=== PATIENT | female | born 1975 | race Caucasian/White ===

== ENCOUNTER 2016-06-12 15:07 | Emergency (ER) | payer OTHER ==
[2016-06-12] MEDS ORDERED: SODIUM CHLORIDE 0.9% 1,000 ML IV ONE ×2 (15:52→16:58)
[2016-06-12] MEDS ORDERED: ONDANSETRON 4 MG/2 ML VIAL IVP STA (15:52)
--- NOTE | 2016-06-12 15:56 | ED ---
General Adult HPI - General Chief complaint: Chest Pain Stated complaint: SOB/Chest Pain Time Seen by Provider: 06/12/16 15:41 Source: patient, family, RN notes reviewed, old records reviewed Mode of arrival: ambulatory Limitations: no limitations - History of Present Illness Initial comments: 40-year-old female presenting for chest pain. Patient states this started somewhat suddenly while sitting at home. She states she felt a substernal sharp chest pain that also is in the left chest at times. She denies any shortness of breath associated. She did feel like she had some dizziness associated. She does states she's been feeling ill for the past week or so and is concerned she may be dehydrated. She also has had some nausea and vomiting last few days. She denies any abdominal pain. She denies any fevers or chills. - Related Data Home Medications Medication Instructions Recorded Confirmed Multivitamins, Thera [Multivitamin] 1 tab PO DAILY 06/12/16 06/12/16 traZODone HCL 50 - 100 mg PO HS 06/12/16 06/12/16 Allergies Allergy/AdvReac Type Severity Reaction Status Date / Time cephalexin monohydrate Allergy HIVES Verified 06/12/16 16:11 [From Keflex] erythromycin base Allergy HIVES Verified 06/12/16 16:11 [Erythromycin Base] metoclopramide HCl Allergy Unknown Verified 06/12/16 16:11 [From Reglan] Review of Systems ROS Statement: Those systems with pertinent positive or pertinent negative responses have been documented in the HPI. ROS Other: All systems not noted in ROS Statement are negative. Past Medical History Past Medical History: Asthma, Thyroid Disorder History of Any Multi-Drug Resistant Organisms: None Reported Past Surgical History: Adenoidectomy, Bariatric Surgery, Cholecystectomy, Tonsillectomy, Tubal Ligation Past Psychological History: Anxiety, Depression, Panic Disorder Smoking Status: Former smoker Past Alcohol Use History: None Reported Past Drug Use History: None Reported General Exam - General Exam Comments Initial Comments: General: Awake and Alert. No acute distress. Does not appear acutely ill. Eyes: RIOS, EOM intact. No nystagmus. No scleral icterus. HENT: Atraumatic, normocephalic. Mucous membranes moist. Trachea midline. Neck: The neck is supple, there is no tenderness or JVD. Cardiovascular: Regular rate and rhythm. No murmur, rub, or gallop is appreciated. Distal pulses intact. Respiratory: Lungs are clear to auscultation bilaterally. No wheezes, rales, rhonchi. No respiratory distress. Gastrointestinal: Soft, Nontender. No rebound or guarding. Non-distended. No masses or organomegaly noted. No CVA tenderness. Musculoskeletal: No tenderness. Normal ROM. No gross deformity. No strength deficits. Neurological: A&Ox3. CN II-XII grossly intact, There are no obvious motor or sensory deficits. Coordination appears grossly intact. Speech is normal. Skin: Skin is warm and dry and no rashes or lesions are noted. Psychiatric: Cooperative, normal judgment. Appears anxious. Limitations: no limitations Course Vital Signs 06/12/16 06/12/16 06/12/16 15:16 16:11 16:19 Temperature 98.6 F Pulse Rate 97 81 Pulse Rate [ 80 Bilateral] Respiratory 18 14 16 Rate Blood Pressure 124/59 101/63 O2 Sat by Pulse 100 100 Oximetry 06/12/16 06/12/16 06/12/16 17:30 19:42 20:32 Temperature 98.3 F 97.6 F Pulse Rate 69 80 78 Pulse Rate [ Bilateral] Respiratory 15 18 18 Rate Blood Pressure 89/55 97/52 118/72 O2 Sat by Pulse 100 20 L 98 Oximetry EKG Findings - EKG Comments: EKG Findings:: 15:36. Normal sinus rhythm. Rate 91. WI 134. QRS 76. QT/QTC 360/442. Normal axis. No STEMI. Normal EKG. Medical Decision Making - Medical Decision Making 40-year-old female presenting for chest pain. Patient with overall low risk factors for ACS. Patient appears stable on initial exam. Will start IV fluids for possible dehydration per history of recent illness and poor PO intake. Lab workup a stable CBC. Initial BMP with hypo-hyponatremia and hyperkalemia. Renal function appears normal.: Discussed with lab and states this is not hemolyzed. Patient is given additional liter of fluid. Repeat BMP was stable. Chest x-ray with no acute process. EKG without evidence of ischemia. Patient was reevaluated after fluid states she is feeling significantly improved. Updated on results and imaging. Discussed evidence of dehydration with electrolyte abnormalities but improved on repeat. Given the patient is feeling improved discussed that she is stable for discharge home at this time. Discussed staying well-hydrated. Discussed close follow-up with PCP. Discussed concerning signs and symptoms requiring immediate return to the ED. Patient and are agreeable with plan and discharge home. - Lab Data Result diagrams: 06/12/16 16:34 06/12/16 19:05 Lab Results 06/12/16 06/12/16 06/12/16 Range/Units 16:01 16:01 16:34 WBC (3.8-10.6) k/uL RBC (3.80-5.40) m/uL Hgb (11.4-16.0) gm/dL Hct (34.0-46.0) % MCV (80.0-100.0) fL MCH (25.0-35.0) pg MCHC (31.0-37.0) g/dL RDW (11.5-15.5) % Plt Count (150-450) k/uL Neutrophils % % Lymphocytes % % Monocytes % % Eosinophils % % Basophils % % Neutrophils # (1.3-7.7) k/uL Lymphocytes # (1.0-4.8) k/uL Monocytes # (0-1.0) k/uL Eosinophils # (0-0.7) k/uL Basophils # (0-0.2) k/uL Hypochromasia Anisocytosis Sodium 141 (137-145) mmol/L Potassium 5.6 H (3.5-5.1) mmol/L Chloride 111 H (98-107) mmol/L Carbon Dioxide 18 L (22-30) mmol/L Anion Gap 12 mmol/L BUN 12 (7-17) mg/dL Creatinine 0.63 (0.52-1.04) mg/dL Est GFR (MDRD) Af Amer >60 (>60 ml/min/1.73 sqM) Est GFR (MDRD) Non-Af >60 (>60 ml/min/1.73 sqM) Glucose 65 L (74-99) mg/dL Calcium 8.9 (8.4-10.2) mg/dL Magnesium 2.1 (1.6-2.3) mg/dL Total Bilirubin (0.2-1.3) mg/dL AST (14-36) U/L ALT (9-52) U/L Alkaline Phosphatase (38-126) U/L Total Protein (6.3-8.2) g/dL Albumin (3.5-5.0) g/dL Urine Color Colorless Urine Appearance Clear (Clear) Urine pH 5.5 (5.0-8.0) Ur Specific [place] 1.002 (1.001-1.035) Urine Protein Negative (Negative) Urine Glucose (UA) Negative (Negative) Urine Ketones Negative (Negative) Urine Blood Negative (Negative) Urine Nitrate Negative (Negative) Urine Bilirubin Negative (Negative) Urine Urobilinogen <2.0 (<2.0) mg/dL Ur Leukocyte Esterase Negative (Negative) Urine HCG, Qual Not Detected (Not Detectd) 06/12/16 06/12/16 Range/Units 16:34 19:05 WBC 4.3 (3.8-10.6) k/uL RBC 4.13 (3.80-5.40) m/uL Hgb 10.4 L (11.4-16.0) gm/dL Hct 34.4 (34.0-46.0) % MCV 83.3 (80.0-100.0) fL MCH 25.3 (25.0-35.0) pg MCHC 30.3 L (31.0-37.0) g/dL RDW 16.1 H (11.5-15.5) % Plt Count 236 (150-450) k/uL Neutrophils % 59 % Lymphocytes % 32 % Monocytes % 4 % Eosinophils % 3 % Basophils % 0 % Neutrophils # 2.6 (1.3-7.7) k/uL Lymphocytes # 1.4 (1.0-4.8) k/uL Monocytes # 0.2 (0-1.0) k/uL Eosinophils # 0.1 (0-0.7) k/uL Basophils # 0.0 (0-0.2) k/uL Hypochromasia Marked Anisocytosis Slight Sodium 140 (137-145) mmol/L Potassium 4.5 (3.5-5.1) mmol/L Chloride 111 H (98-107) mmol/L Carbon Dioxide 21 L (22-30) mmol/L Anion Gap 8 mmol/L BUN 13 (7-17) mg/dL Creatinine 0.59 (0.52-1.04) mg/dL Est GFR (MDRD) Af Amer >60 (>60 ml/min/1.73 sqM) Est GFR (MDRD) Non-Af >60 (>60 ml/min/1.73 sqM) Glucose 76 (74-99) mg/dL Calcium 8.1 L (8.4-10.2) mg/dL Magnesium 2.0 (1.6-2.3) mg/dL Total Bilirubin 0.3 (0.2-1.3) mg/dL AST 18 (14-36) U/L ALT 35 (9-52) U/L Alkaline Phosphatase 52 (38-126) U/L Total Protein 6.3 (6.3-8.2) g/dL Albumin 3.4 L (3.5-5.0) g/dL Urine Color Urine Appearance (Clear) Urine pH (5.0-8.0) Ur Specific [place] (1.001-1.035) Urine Protein (Negative) Urine Glucose (UA) (Negative) Urine Ketones (Negative) Urine Blood (Negative) Urine Nitrate (Negative) Urine Bilirubin (Negative) Urine Urobilinogen (<2.0) mg/dL Ur Leukocyte Esterase (Negative) Urine HCG, Qual (Not Detectd) - EKG Data -: EKG Interpreted by Ia EKG shows normal: sinus rhythm Rate: normal - Radiology Data Radiology results: report reviewed, image reviewed Disposition Clinical Impression: Chest pain, Dizziness, Dehydration Disposition: HOME SELF-CARE Condition: Stable Instructions: Chest Pain (ED), Dehydration (ED) Referrals: Dominic Funes MD [Primary Care Provider] - 1-2 days Time of Disposition: 20:19
[2016-06-12 16:13] LABS: Appearance,Urine Clear (Clear); Bilirubin,Urine Negative (Negative); Glucose,Urine (UA) Negative (Negative); Ketones,Urine Negative (Negative); Leukocyte Esterase,Urine Negative (Negative); Nitrite,Urine Negative (Negative); PH, Urine 5.5 (5.0-8.0); Protein,Urine Negative (Negative); Specific Gravity,Urine 1.002 (1.001-1.035); UA Billing (MACRO vs. MICRO) CHEM; Urobilinogen,Urine <2.0 mg/dL (<2.0)
--- NOTE | 2016-06-12 16:43 | XR ---
EXAMINATION TYPE: XR chest 2V DATE OF EXAM: 06/12/2016 4:39 PM COMPARISON: 09/20/2015 HISTORY: Chest pain FINDINGS: The lungs are clear and there is no pneumothorax, pleural effusion, or focal pneumonia. IMPRESSION: 1. No acute process.
[2016-06-12 16:48] LABS: Anisocytosis Slight; Basophils % (A) 0 %; CH 24.9; Eosinophils # (A) 0.1 k/uL (0-0.7); Eosinophils % (A) 3 %; HCT 34.4 % (34.0-46.0); HDW 2.91; HGB 10.4 gm/dL (11.4-16.0); Hypochromasia Marked; Luc % (Auto) 2; Lymphocytes # (A) 1.4 k/uL (1.0-4.8); Lymphocytes % (A) 32 %; MCH 25.3 pg (25.0-35.0); MCHC 30.3 g/dL (31.0-37.0); MCV 83.3 fL (80.0-100.0); Mean Platelet Volume 8.1; Monocytes # (A) 0.2 k/uL (0-1.0); Monocytes % (A) 4 %; Neutrophils # (A) 2.6 k/uL (1.3-7.7); Neutrophils % (A) 59 %; RBC 4.13 m/uL (3.80-5.40); RDW 16.1 % (11.5-15.5); WBC 4.3 k/uL (3.8-10.6); WBC (Perox) 4.77
[2016-06-12 16:51] LABS: Anion Gap 12 mmol/L; Blood Urea Nitrogen 12 mg/dL (7-17); Calcium 8.9 mg/dL (8.4-10.2); Carbon Dioxide 18 mmol/L (22-30); Chloride 111 mmol/L (98-107); Glucose 65 mg/dL (74-99); Magnesium 2.1 mg/dL (1.6-2.3); Non-African American GFR(MDRD) >60 (>60 ml/min/1.73 sqM); Potassium 5.6 mmol/L (3.5-5.1); Sodium 141 mmol/L (137-145)
[2016-06-12 19:29] LABS: ALT 35 U/L (9-52); AST 18 U/L (14-36); Alkaline Phosphatase 52 U/L (38-126); Anion Gap 8 mmol/L; Blood Urea Nitrogen 13 mg/dL (7-17); Calcium 8.1 mg/dL (8.4-10.2); Carbon Dioxide 21 mmol/L (22-30); Chloride 111 mmol/L (98-107); Glucose 76 mg/dL (74-99); Non-African American GFR(MDRD) >60 (>60 ml/min/1.73 sqM); Potassium 4.5 mmol/L (3.5-5.1); Sodium 140 mmol/L (137-145); Total Bilirubin 0.3 mg/dL (0.2-1.3); Total Protein 6.3 g/dL (6.3-8.2)
[2016-06-12 19:44] VITALS: RESP 18
[2016-06-12 20:33] VITALS: BP 118/72; PULSE 78; TEMP 97.6
== END 2016-06-12 20:31 | disposition home or self-care (01) ==
LOC: EC 15:07
DX: R07.89 Other chest pain (principal); E86.0 Dehydration; R42 Dizziness and giddiness; F32.9 Major depressive disorder, single episode, unspecified; F41.9 Anxiety disorder, unspecified; F41.0 Panic disorder [episodic paroxysmal anxiety]; Z87.891 Personal history of nicotine dependence; Z79.899 Other long term (current) drug therapy; Z88.1 Allergy status to other antibiotic agents; Z88.8 Allergy status to other drugs, medicaments and biological substances
CPT/HCPCS: 99285 ×2; 96374 ×2; 96361 ×4; 36415; 93005; 80053; 80048; 83735; 85025; 81003; 81025; 71020; J2405

== ENCOUNTER 2016-11-02 12:37 | Emergency (ER) | payer OTHER ==
[2016-11-02] MEDS ORDERED: IOHEXOL 350 MG/ML 25 ML BOTTLE (ORAL USE) PO PRN (13:11)
[2016-11-02] MEDS ORDERED: MORPHINE SULFATE 2 MG/ML SYRINGE IVP STA (13:11)
[2016-11-02] MEDS ORDERED: SODIUM CHLORIDE 0.9% 1,000 ML IV STA (13:11)
[2016-11-02] MEDS ORDERED: ONDANSETRON 4 MG/2 ML VIAL IVP STA (13:11)
[2016-11-02] MEDS ORDERED: RX INFO: IV CONTRAST WAS GIVEN 1 EACH MISC MISCELLANE PRN (13:11)
--- NOTE | 2016-11-02 13:14 | ED ---
General Adult HPI - General Source: patient, RN notes reviewed Mode of arrival: wheelchair Limitations: no limitations <James Britt - Last Filed: 11/02/16 16:02> <Gerald Wright - Last Filed: 11/02/16 16:08> - General Chief complaint: Seizure Stated complaint: Seizure Time Seen by Provider: 11/02/16 13:07 - History of Present Illness Initial comments: 41-year-old female presents emergency Department with chief complaint of abdominal pain. She states she woke up at 9 AM with severe abdominal pain nausea vomiting. Patient states she went to go back to her bed and states that she nearly passed out. Patient states she fell the ground. Patient thought she may paresthesia but never lost consciousness. Patient states she has a history of seizures. Patient denies chest pain, shortness of breath. Patient denies fever, chills. She states pain is primarily her right lower quadrant and upper stomach. Patient states that she has a history of gastric bypass 5 years ago. Patient denies any Locations. Patient offers no complaints. (James Britt) - Related Data Home Medications Medication Instructions Recorded Confirmed Multivitamins, Thera [Multivitamin] 1 tab PO DAILY 06/12/16 11/02/16 traZODone HCL 50 mg PO HS 06/12/16 11/02/16 Previous Rx's Medication Instructions Recorded Acetaminophen-Codeine 300-30mg 1 tab PO Q4H PRN #20 tablet 11/02/16 [Tylenol #3] Allergies Allergy/AdvReac Type Severity Reaction Status Date / Time cephalexin monohydrate Allergy Rash/Hives Verified 11/02/16 14:15 [From Keflex] erythromycin base Allergy Rash/Hives Verified 11/02/16 14:15 [Erythromycin Base] ibuprofen Allergy Nausea & Verified 11/02/16 14:15 Vomiting metoclopramide HCl Allergy Rash/Hives Verified 11/02/16 14:15 [From Reglan] Review of Systems ROS Other: All systems not noted in ROS Statement are negative. <James Britt - Last Filed: 11/02/16 16:02> ROS Other: All systems not noted in ROS Statement are negative. <Gerald Wright - Last Filed: 11/02/16 16:08> ROS Statement: Those systems with pertinent positive or pertinent negative responses have been documented in the HPI. Past Medical History Past Medical History: Asthma, Seizure Disorder, Thyroid Disorder History of Any Multi-Drug Resistant Organisms: None Reported Past Surgical History: Adenoidectomy, Bariatric Surgery, Cholecystectomy, Tonsillectomy, Tubal Ligation Past Psychological History: Anxiety, Depression, Panic Disorder Smoking Status: Former smoker Past Alcohol Use History: None Reported Past Drug Use History: None Reported <James Britt - Last Filed: 11/02/16 16:02> General Exam Limitations: no limitations General appearance: alert, in no apparent distress Head exam: Present: atraumatic, normocephalic, normal inspection Neck exam: Present: normal inspection, full ROM. Absent: tenderness, meningismus, lymphadenopathy Respiratory exam: Present: normal lung sounds bilaterally. Absent: respiratory distress, wheezes, rales, rhonchi, stridor Cardiovascular Exam: Present: regular rate, normal rhythm, normal heart sounds. Absent: systolic murmur, diastolic murmur, rubs, gallop, clicks GI/Abdominal exam: Present: soft, normal bowel sounds. Absent: distended, tenderness, guarding, rebound, rigid Back exam: Absent: CVA tenderness (R), CVA tenderness (L) Neurological exam: Present: alert, oriented X3, CN II-XII intact Skin exam: Present: warm, dry, intact, normal color. Absent: rash <James Britt - Last Filed: 11/02/16 16:02> Course <James Britt - Last Filed: 11/02/16 16:02> <Gerald Wright - Last Filed: 11/02/16 16:08> Vital Signs 11/02/16 11/02/16 11/02/16 12:42 15:27 16:04 Temperature 98.3 F 98.4 F Pulse Rate 92 73 68 Respiratory 16 18 16 Rate Blood Pressure 111/62 93/52 107/58 O2 Sat by Pulse 100 100 98 Oximetry - Reevaluation(s) Reevaluation #1: 11/02/16 16:07 The patient [id number] evaluation as patient did discuss [employer] her family. Patient abdomen is soft nontender positive bowel sounds, unremarkable exam the patient will follow-up with her doctor. We did discuss the CAT scan reading the reading is likely artifact as described (Gerald Wright) Medical Decision Making - Lab Data Result diagrams: 11/02/16 13:37 11/02/16 13:37 <James Britt - Last Filed: 11/02/16 16:02> - Lab Data Result diagrams: 11/02/16 13:37 11/02/16 13:37 <Gerald Wright - Last Filed: 11/02/16 16:08> - Medical Decision Making 41-year-old female presented emergency department for abdominal pain. Patient has ovarian cyst. Patient's pain has actually improved at this time. Patient' s CT showed possible SMA defect felt this is artifact related. Patient was noted by Dr. Wright agrees with the patient is nontender. Patient's clinical picture does not fit SMA problem. We did inform the patient about this and she will follow-up with primary care physician. She does have anemia which is chronic in nature. (James Britt) - Lab Data Lab Results 11/02/16 11/02/16 11/02/16 Range/Units 13:37 13:37 13:37 WBC 4.7 (3.8-10.6) k/uL RBC 3.88 (3.80-5.40) m/uL Hgb 9.1 L (11.4-16.0) gm/dL Hct 30.6 L (34.0-46.0) % MCV 78.9 L (80.0-100.0) fL MCH 23.6 L (25.0-35.0) pg MCHC 29.9 L (31.0-37.0) g/dL RDW 17.0 H (11.5-15.5) % Plt Count 264 (150-450) k/uL Neutrophils % (Manual) 50.0 % Lymphocytes % (Manual) 37.0 % Monocytes % (Manual) 6.0 % Eosinophils % (Manual) 7.0 % Neutrophils # (Manual) 2.4 (1.3-7.7) k/uL Lymphocytes # (Manual) 1.7 (1.0-4.8) k/uL Monocytes # (Manual) 0.3 (0-1.0) k/uL Eosinophils # (Manual) 0.3 (0-0.7) k/uL Nucleated RBCs 0 (0-0) /100 WBC Hypochromasia Marked Poikilocytosis (manual Present Anisocytosis Slight Microcytosis Slight Sodium 140 (137-145) mmol/L Potassium 5.1 (3.5-5.1) mmol/L Chloride 109 H (98-107) mmol/L Carbon Dioxide 22 (22-30) mmol/L Anion Gap 9 mmol/L BUN 10 (7-17) mg/dL Creatinine 0.60 (0.52-1.04) mg/dL Est GFR (MDRD) Af Amer >60 (>60 ml/min/1.73 sqM) Est GFR (MDRD) Non-Af >60 (>60 ml/min/1.73 sqM) Glucose 88 (74-99) mg/dL Calcium 8.7 (8.4-10.2) mg/dL Total Bilirubin 0.7 (0.2-1.3) mg/dL AST 34 (14-36) U/L ALT 19 (9-52) U/L Alkaline Phosphatase 54 (38-126) U/L Total Protein 6.7 (6.3-8.2) g/dL Albumin 3.7 (3.5-5.0) g/dL Amylase 68 (30-110) U/L Lipase 137 (23-300) U/L Urine Color Yellow Urine Appearance Clear (Clear) Urine pH 6.0 (5.0-8.0) Ur Specific [place] 1.018 (1.001-1.035) Urine Protein Negative (Negative) Urine Glucose (UA) Negative (Negative) Urine Ketones Negative (Negative) Urine Blood Negative (Negative) Urine Nitrite Negative (Negative) Urine Bilirubin Negative (Negative) Urine Urobilinogen <2.0 (<2.0) mg/dL Ur Leukocyte Esterase Negative (Negative) Disposition Time of Disposition: 16:04 <James Britt - Last Filed: 11/02/16 16:02> <Gerald Wright - Last Filed: 11/02/16 16:08> Clinical Impression: Anemia, Abdominal pain, Ovarian cyst Instructions: Abdominal Pain (ED) Additional Instructions: Please return to the Emergency Department if symptoms worsen or any other concerns. Prescriptions: Acetaminophen-Codeine 300-30mg [Tylenol #3] 1 tab PO Q4H PRN #20 tablet PRN Reason: pain Referrals: Dominic Funes MD [Primary Care Provider] - 1-2 days
[2016-11-02 14:15] LABS: Amylase 68 U/L (30-110); Anion Gap 9 mmol/L; Calcium 8.7 mg/dL (8.4-10.2); Carbon Dioxide 22 mmol/L (22-30); Chloride 109 mmol/L (98-107); Glucose 88 mg/dL (74-99); Non-African American GFR(MDRD) >60 (>60 ml/min/1.73 sqM); Sodium 140 mmol/L (137-145); Total Bilirubin 0.7 mg/dL (0.2-1.3)
[2016-11-02 14:17] LABS: Appearance,Urine Clear (Clear); Bilirubin,Urine Negative (Negative); Glucose,Urine (UA) Negative (Negative); Ketones,Urine Negative (Negative); Leukocyte Esterase,Urine Negative (Negative); Nitrite,Urine Negative (Negative); Protein,Urine Negative (Negative); Specific Gravity,Urine 1.018 (1.001-1.035); UA Billing (MACRO vs. MICRO) CHEM; Urobilinogen,Urine <2.0 mg/dL (<2.0)
[2016-11-02 14:21] LABS: Anisocytosis Slight; Aty Lym Flag Slight; CH 23.7; CHCM 30.2; HCT 30.6 % (34.0-46.0); HDW 3.18; HGB 9.1 gm/dL (11.4-16.0); Hypochromasia Marked; MCH 23.6 pg (25.0-35.0); MCHC 29.9 g/dL (31.0-37.0); MCV 78.9 fL (80.0-100.0); Mean Platelet Volume 8.3; Microcytosis Slight; RBC 3.88 m/uL (3.80-5.40); WBC 4.7 k/uL (3.8-10.6); WBC (Perox) 4.72
[2016-11-02 14:26] LABS: Total Protein 6.7 g/dL (6.3-8.2)
[2016-11-02 14:27] LABS: AST 34 U/L (14-36); Blood Urea Nitrogen 10 mg/dL (7-17); Potassium 5.1 mmol/L (3.5-5.1)
[2016-11-02 14:28] LABS: ALT 19 U/L (9-52); Alkaline Phosphatase 54 U/L (38-126)
[2016-11-02 14:50] LABS: Add Differential Manual Differential
[2016-11-02 14:52] LABS: Nucleated Red Blood Cells 0 /100 WBC (0-0); Total Cells Counted 100
--- NOTE | 2016-11-02 15:29 | CT ---
EXAMINATION TYPE: CT abdomen pelvis w con DATE OF EXAM: 11/02/2016 COMPARISON: 01/08/2016 HISTORY: Abdominal pain and syncope today. CT DLP: 561.3 mGycm Automated exposure control for dose reduction was used. CONTRAST: CT scan of the abdomen pelvis is performed with IV Contrast, patient injected with 100 mL of Omnipaqu e 300. FINDINGS- LUNG BASES- No significant abnormality is appreciated. LIVER/GB-liver again appears to be enlarged measuring 22 cm.. PANCREAS- No gross abnormality is seen. SPLEEN- No gross abnormality is seen. ADRENALS- No gross abnormality is seen. KIDNEYS/BLADDER- no hydronephrosis nephrolithiasis or renal mass. BOWEL-previous surgery is noted. Bowel gas pattern is nonspecific.. LYMPH NODES- No greater than 1cm abdominal or pelvic lymph nodes are appreciated. OSSEOUS STRUCTURES- No significant abnormality is seen. OTHER-subcutaneous soft tissue density in the periumbilical region and stable measuring 1.7 cm and no nspecific. Right adnexal cyst measuring 1.9 cm correlate for ovarian cyst. Previous surgical change s uspected in the pelvis subcutaneous edema suggestive of anasarca. Artifact and poor opacification of the mesenteric vasculature limits assessment. IMPRESSION- 1. Anasarca with suspected right ovarian cyst measuring 1.9 cm. 2. Nonspecific gas pattern with evidence of previous surgical change. There is suboptimal enhancement of the mesenteric vasculature for assessment. Questionable tiny defect within the SMA which likely i s artifactual but should be correlated with superior SMA ultrasound for confirmation. 3. Hepatomegaly and periportal edema which is nonspecific, correlate with liver function studies.
[2016-11-02 16:06] VITALS: BP 107/58; PULSE 68; RESP 16; TEMP 98.4
== END 2016-11-02 16:20 | disposition home or self-care (01) ==
LOC: EC 12:37
DX: N83.201 Unspecified ovarian cyst, right side (principal); D64.9 Anemia, unspecified; R11.2 Nausea with vomiting, unspecified; F41.9 Anxiety disorder, unspecified; F32.9 Major depressive disorder, single episode, unspecified; Z79.899 Other long term (current) drug therapy; Z88.1 Allergy status to other antibiotic agents; Z88.6 Allergy status to analgesic agent; Z88.8 Allergy status to other drugs, medicaments and biological substances
CPT/HCPCS: 36415; 80053; 82150; 83690; 85025; 81003; 74177; 99284; 96374; 96375; 96361; J2405; J2270; Q9967

== ENCOUNTER → 2016-11-26 | Outpatient (CLI) | payer OTHER ==
--- NOTE | 2016-11-26 21:25 | CT ---
EXAMINATION TYPE: CT abdomen pelvis w con DATE OF EXAM: 11/26/2016 COMPARISON: 11/02/2016 HISTORY: abdmominal pain with vomiting. CT DLP: 454.3 mGycm Automated exposure control for dose reduction was used. CONTRAST: CT scan of the abdomen pelvis is performed with IV Contrast, patient injected with 100 mL of Omnipaqu e 300. FINDINGS- LUNG BASES- No significant abnormality is appreciated. LIVER/GB- No gross abnormality is appreciated. PANCREAS- No gross abnormality is seen. SPLEEN- No gross abnormality is seen. ADRENALS- No gross abnormality is seen. KIDNEYS/BLADDER- no hydronephrosis nephrolithiasis or renal mass. BOWEL- previous surgery is noted. Bowel gas pattern is nonspecific LYMPH NODES- No greater than 1cm abdominal or pelvic lymph nodes are appreciated. OSSEOUS STRUCTURES- No significant abnormality is seen. OTHER- 2 cm right adnexal cyst noted likely ovarian. Trace amount of fluid in the pelvis. Mesenteric vasculature enhances normally on today's exam. There continues to BE attenuation diffusely throughou t the subcutaneous fat compatible with mild anasarca. IMPRESSION- 1. Stable post surgical change with no acute process. 2. Stable 2 cm right adnexal cyst likely ovarian. 3. Mild anasarca with a trace amount of fluid in the pelvis. 4. There are few prominent small bowel loops within the left upper abdomen with an overall nonspecifi c gas pattern. Contrast is seen to pass into the colon. Correlate clinically.
== END | disposition home or self-care (01) ==
LOC: RADCTMAIN 16:43
PROVIDERS: ATTEND Family Medicine
DX: N85.8 Other specified noninflammatory disorders of uterus (principal); R14.3 Flatulence; R60.1 Generalized edema; R10.84 Generalized abdominal pain; Z88.1 Allergy status to other antibiotic agents; Z88.6 Allergy status to analgesic agent; Z98.890 Other specified postprocedural states
CPT/HCPCS: 74177; Q9967

== ENCOUNTER 2016-11-29 19:45 | Emergency (ER) | payer OTHER ==
[2016-11-29 19:49] VITALS: TEMP 98.3
[2016-11-29] MEDS ORDERED: SODIUM CHLORIDE 0.9% 1,000 ML IV STA (20:07)
[2016-11-29] MEDS ORDERED: MORPHINE SULFATE 2 MG/ML SYRINGE IVP ONE ×2 (20:26→21:47)
[2016-11-29] MEDS ORDERED: ONDANSETRON 4 MG/2 ML VIAL IVP STA (20:26)
--- NOTE | 2016-11-29 20:33 | ED ---
Abdominal Pain HPI - General Chief Complaint: Abdominal Pain Stated Complaint: abdominal pain-revisit Time Seen by Provider: 11/29/16 19:55 Source: patient, RN notes reviewed, old records reviewed Mode of arrival: ambulatory Limitations: no limitations - History of Present Illness Initial Comments: This a 41-year-old female presents emergency Department chief complaint abdominal pain. Patient states pain is been getting worse over the last 2 weeks. Patient states she's been seen ER and by her primary care physician who ordered a CAT scan on . Patient states that the pain is in lower abdomen. Patient states that she has no dysuria or hematuria. Denies any vaginal any vaginal discharge. Patient states that she was told by ER that was ovarian cysts and her primary care physician told her just go away. Patient states that she wanted see her blister rust eradicator though she was not referred to one. Patient was given Whiteface by her PCP and states did help for her pain. Patient denies any fever, chills, diarrhea constipation. Denies any flank pain. - Related Data Home Medications Medication Instructions Recorded Confirmed traZODone HCL 50 mg PO HS 06/12/16 11/29/16 Acetaminophen Tab [Tylenol Tab] 1,000 mg PO Q6HR PRN 11/29/16 11/29/16 Previous Rx's Medication Instructions Recorded Hydrocodone/Acetaminophen [[place] 1 tab PO Q6HR PRN #15 tab 11/29/16 5-325] Allergies Allergy/AdvReac Type Severity Reaction Status Date / Time cephalexin monohydrate Allergy Rash/Hives Verified 11/29/16 19:58 [From Keflex] erythromycin base Allergy Rash/Hives Verified 11/29/16 19:58 [Erythromycin Base] ibuprofen Allergy Nausea & Verified 11/29/16 19:58 Vomiting metoclopramide HCl Allergy Rash/Hives Verified 11/29/16 19:58 [From Reglan] Review of Systems ROS Statement: Those systems with pertinent positive or pertinent negative responses have been documented in the HPI. ROS Other: All systems not noted in ROS Statement are negative. Past Medical History Past Medical History: Asthma, Seizure Disorder, Thyroid Disorder History of Any Multi-Drug Resistant Organisms: None Reported Past Surgical History: Adenoidectomy, Bariatric Surgery, Cholecystectomy, Tonsillectomy, Tubal Ligation Past Psychological History: Anxiety, Depression, Panic Disorder Smoking Status: Former smoker Past Alcohol Use History: None Reported Past Drug Use History: None Reported General Exam Limitations: no limitations General appearance: alert, in no apparent distress Head exam: Present: atraumatic, normocephalic, normal inspection Respiratory exam: Present: normal lung sounds bilaterally. Absent: respiratory distress, wheezes, rales, rhonchi, stridor Cardiovascular Exam: Present: regular rate, normal rhythm, normal heart sounds. Absent: systolic murmur, diastolic murmur, rubs, gallop, clicks GI/Abdominal exam: Present: soft, tenderness (Mild to moderate diffuse lower abdominal tenderness), normal bowel sounds. Absent: distended, guarding, rebound, rigid Back exam: Absent: CVA tenderness (R), CVA tenderness (L) Skin exam: Present: warm, dry, intact, normal color. Absent: rash Course Vital Signs 11/29/16 11/29/16 19:46 22:49 Temperature 98.3 F Pulse Rate 95 68 Respiratory 22 16 Rate Blood Pressure 135/91 113/74 O2 Sat by Pulse 100 95 Oximetry Medical Decision Making - Medical Decision Making 41-year-old female presented emergency department for abdominal pain. Patient recent CT which showed ovarian cyst confirmed on ultrasound. Patient's lab work within normal limits. Patient is no evidence urinary tract infection. Patient be discharged. - Lab Data Result diagrams: 11/29/16 20:20 11/29/16 20:20 Lab Results 11/29/16 11/29/16 11/29/16 Range/Units 20:20 20:20 20:20 WBC 6.0 (3.8-10.6) k/uL RBC 3.77 L (3.80-5.40) m/uL Hgb 8.9 L (11.4-16.0) gm/dL Hct 29.9 L (34.0-46.0) % MCV 79.4 L (80.0-100.0) fL MCH 23.6 L (25.0-35.0) pg MCHC 29.7 L (31.0-37.0) g/dL RDW 18.1 H (11.5-15.5) % Plt Count 288 (150-450) k/uL Neutrophils % 56 % Lymphocytes % 35 % Monocytes % 4 % Eosinophils % 2 % Basophils % 1 % Neutrophils # 3.4 (1.3-7.7) k/uL Lymphocytes # 2.1 (1.0-4.8) k/uL Monocytes # 0.3 (0-1.0) k/uL Eosinophils # 0.1 (0-0.7) k/uL Basophils # 0.0 (0-0.2) k/uL Hypochromasia Marked Anisocytosis Slight Microcytosis Slight Sodium 138 (137-145) mmol/L Potassium 4.4 (3.5-5.1) mmol/L Chloride 105 (98-107) mmol/L Carbon Dioxide 22 (22-30) mmol/L Anion Gap 11 mmol/L BUN 12 (7-17) mg/dL Creatinine 0.70 (0.52-1.04) mg/dL Est GFR (MDRD) Af Amer >60 (>60 ml/min/1.73 sqM) Est GFR (MDRD) Non-Af >60 (>60 ml/min/1.73 sqM) Glucose 97 (74-99) mg/dL Calcium 9.1 (8.4-10.2) mg/dL Total Bilirubin 0.2 (0.2-1.3) mg/dL AST 17 (14-36) U/L ALT 35 (9-52) U/L Alkaline Phosphatase 58 (38-126) U/L Total Protein 6.8 (6.3-8.2) g/dL Albumin 4.3 (3.5-5.0) g/dL Amylase 59 (30-110) U/L Lipase 119 (23-300) U/L Urine Color Yellow Urine Appearance Clear (Clear) Urine pH 5.0 (5.0-8.0) Ur Specific [place] 1.014 (1.001-1.035) Urine Protein Negative (Negative) Urine Glucose (UA) Negative (Negative) Urine Ketones Negative (Negative) Urine Blood Moderate H (Negative) Urine Nitrite Negative (Negative) Urine Bilirubin Negative (Negative) Urine Urobilinogen <2.0 (<2.0) mg/dL Ur Leukocyte Esterase Small H (Negative) Urine RBC 2 (0-5) /hpf Urine WBC 4 (0-5) /hpf Ur Squamous Epith Cells 4 (0-4) /hpf Urine Mucus Rare H (None) /hpf Disposition Clinical Impression: Ovarian cyst, Abdominal pain Disposition: HOME SELF-CARE Condition: Stable Instructions: Abdominal Pain (ED) Additional Instructions: Please return to the Emergency Department if symptoms worsen or any other concerns. Prescriptions: Hydrocodone/Acetaminophen [Whiteface 5-325] 1 tab PO Q6HR PRN #15 tab PRN Reason: Pain Referrals: Dominic Funes MD [Primary Care Provider] - 1-2 days Time of Disposition: 23:50
[2016-11-29 20:37] LABS: Anisocytosis Slight; Basophils % (A) 1 %; CH 23.4; CHCM 29.7; Eosinophils # (A) 0.1 k/uL (0-0.7); Eosinophils % (A) 2 %; HCT 29.9 % (34.0-46.0); HDW 3.07; HGB 8.9 gm/dL (11.4-16.0); Hypochromasia Marked; Luc # (Auto) 0.11; Luc % (Auto) 2; Lymphocytes # (A) 2.1 k/uL (1.0-4.8); Lymphocytes % (A) 35 %; MCH 23.6 pg (25.0-35.0); MCHC 29.7 g/dL (31.0-37.0); MCV 79.4 fL (80.0-100.0); Mean Platelet Volume 7.9; Microcytosis Slight; Monocytes # (A) 0.3 k/uL (0-1.0); Monocytes % (A) 4 %; Neutrophils # (A) 3.4 k/uL (1.3-7.7); Neutrophils % (A) 56 %; RBC 3.77 m/uL (3.80-5.40); RDW 18.1 % (11.5-15.5); WBC (Perox) 5.55
[2016-11-29 20:46] LABS: ALT 35 U/L (9-52); AST 17 U/L (14-36); Alkaline Phosphatase 58 U/L (38-126); Amylase 59 U/L (30-110); Anion Gap 11 mmol/L; Blood Urea Nitrogen 12 mg/dL (7-17); Calcium 9.1 mg/dL (8.4-10.2); Carbon Dioxide 22 mmol/L (22-30); Chloride 105 mmol/L (98-107); Glucose 97 mg/dL (74-99); Non-African American GFR(MDRD) >60 (>60 ml/min/1.73 sqM); Potassium 4.4 mmol/L (3.5-5.1); Sodium 138 mmol/L (137-145); Total Bilirubin 0.2 mg/dL (0.2-1.3); Total Protein 6.8 g/dL (6.3-8.2)
[2016-11-29 20:51] LABS: Appearance,Urine Clear (Clear); Bilirubin,Urine Negative (Negative); Glucose,Urine (UA) Negative (Negative); Ketones,Urine Negative (Negative); Leukocyte Esterase,Urine Small (Negative); Mucus,Urine Rare /hpf; Nitrite,Urine Negative (Negative); Particle Count 6812; Protein,Urine Negative (Negative); RBC,Urine 2 /hpf (0-5); Specific Gravity,Urine 1.014 (1.001-1.035); Squamous Epithelial Cell,Urine 4 /hpf (0-4); UA Billing (MACRO vs. MICRO) MICRO; Urobilinogen,Urine <2.0 mg/dL (<2.0); WBC,Urine 4 /hpf (0-5)
--- NOTE | 2016-11-29 20:55 | XR ---
EXAMINATION TYPE: XR KUB DATE OF EXAM: 11/29/2016 COMPARISON: 01/08/2016 HISTORY: Abdominal pain TECHNIQUE: 2 views FINDINGS: There are surgical clips in the abdomen. There is no sign of intestinal obstruction or pneu moperitoneum. Lung bases are clear. There are no pathologic calcifications over the kidneys. Fecal pa ttern is normal. IMPRESSION: Nonacute abdomen. No adverse change compared to old exam.
[2016-11-29 23:34] VITALS: BP 113/74; PULSE 68; RESP 16
--- NOTE | 2016-11-29 23:41 | US ---
EXAM: US Pelvis Complete, Transabdominal CLINICAL HISTORY: Reason: Pain TECHNIQUE: Real-time transabdominal pelvic ultrasound (complete) with image documentation. COMPARISON: No relevant prior studies available. FINDINGS: Uterus/cervix: Anteverted, measuring 8.3 x 3.7 x 6.1 cm. Normal endometrial stripe thickness, measuring 0.4 cm. No myometrial mass. Right ovary: Measures 3.5 x 2 x 2.6 cm. There is a 2.8 cm simple cyst in the right ovary. No mass. Normal blood flow. Left ovary: Measures 2.9 x 1.4 x 2 cm. There is a 0.8 x 1.1 x 1.4 cm likely dominant follicle versus cyst in the left ovary. No mass. Normal blood flow. Free fluid: No free fluid. Bladder: Unremarkable as visualized. Wall is normal thickness for degree of distention. IMPRESSION: Normal pelvic ultrasound.
== END 2016-11-30 00:01 | disposition home or self-care (01) ==
LOC: EC 19:45
DX: N83.201 Unspecified ovarian cyst, right side (principal); F41.9 Anxiety disorder, unspecified; F32.9 Major depressive disorder, single episode, unspecified; Z90.49 Acquired absence of other specified parts of digestive tract; Z88.1 Allergy status to other antibiotic agents; Z88.6 Allergy status to analgesic agent; Z88.8 Allergy status to other drugs, medicaments and biological substances; Z79.899 Other long term (current) drug therapy; Z87.891 Personal history of nicotine dependence
CPT/HCPCS: 99284; 96374; 96375; 96376; 96361 ×4; 36415; 80053; 82150; 83690; 85025; 81001; 74000; 93976; 76856; J2405; J2270

== ENCOUNTER 2017-02-07 09:41 | Emergency (ER) | payer OTHER ==
[2017-02-07 09:45] VITALS: RESP 18
--- NOTE | 2017-02-07 10:01 | ED ---
Abdominal Pain HPI - General Chief Complaint: Abdominal Pain Stated Complaint: incision pain post surgery Time Seen by Provider: 02/07/17 09:49 Source: patient, RN notes reviewed Mode of arrival: ambulatory Limitations: no limitations - History of Present Illness Initial Comments: 41-year-old female presents emergency room she might left lower quadrant abdominal pain. Patient states it started on Wednesday after lifting 40 pound container of cat liter She states that she had surgery approximately 6 weeks ago she had ovarian cysts and tubal cyst removed by Dr. Mark. Patient issues doing fine up until Wednesday when she lifted this box. Patient denies any nausea , vomiting diarrhea constipation. Denies any vaginal bleeding or vaginal discharge. Denies any dysuria hematuria. Patient states that the pain is essentially gone now she doesn't mobile when she tries to sit up her left twisted bent she notices increasing pain. - Related Data Home Medications Medication Instructions Recorded Confirmed Acetaminophen Tab [Tylenol Tab] 1,000 mg PO Q6HR PRN 11/29/16 02/07/17 Ferrous Sulfate [Feosol] 325 mg PO TID 02/07/17 02/07/17 Previous Rx's Medication Instructions Recorded Hydrocodone/Acetaminophen [[place] 1 tab PO Q6HR PRN #15 tab 02/07/17 5-325] Allergies Allergy/AdvReac Type Severity Reaction Status Date / Time cephalexin monohydrate Allergy Rash/Hives Verified 02/07/17 10:03 [From Keflex] erythromycin base Allergy Rash/Hives Verified 02/07/17 10:03 [Erythromycin Base] ibuprofen Allergy Nausea & Verified 02/07/17 10:03 Vomiting metoclopramide HCl Allergy Rash/Hives Verified 02/07/17 10:03 [From Reglan] Review of Systems ROS Statement: Those systems with pertinent positive or pertinent negative responses have been documented in the HPI. ROS Other: All systems not noted in ROS Statement are negative. Past Medical History Past Medical History: Asthma, Seizure Disorder, Thyroid Disorder History of Any Multi-Drug Resistant Organisms: None Reported Past Surgical History: Adenoidectomy, Bariatric Surgery, Cholecystectomy, Tonsillectomy, Tubal Ligation Past Psychological History: Anxiety, Depression, Panic Disorder Smoking Status: Former smoker Past Alcohol Use History: None Reported Past Drug Use History: None Reported General Exam Limitations: no limitations General appearance: alert, in no apparent distress Head exam: Present: atraumatic, normocephalic, normal inspection Respiratory exam: Present: normal lung sounds bilaterally. Absent: respiratory distress, wheezes, rales, rhonchi, stridor Cardiovascular Exam: Present: regular rate, normal rhythm, normal heart sounds. Absent: systolic murmur, diastolic murmur, rubs, gallop, clicks GI/Abdominal exam: Present: soft, tenderness (Mild tenderness left lower quadrant), normal bowel sounds, other (Incisions well-healed no erythema no drainage). Absent: distended, guarding, rebound, rigid Back exam: Absent: CVA tenderness (R), CVA tenderness (L) Skin exam: Present: warm, dry, intact, normal color. Absent: rash Course Vital Signs 02/07/17 09:42 Temperature 98.2 F Pulse Rate 92 Respiratory 18 Rate Blood Pressure 160/58 O2 Sat by Pulse 100 Oximetry Medical Decision Making - Medical Decision Making 41-year-old female presented to the emergency department for abdominal pain after lifting a box. Patient has abdominal wall strain which is concerning after having or prescribed surgery. She'll follow-up with her MATERIAL ATTENDANT who did the surgery which apparently discussed. She is advised to no heavy lifting - Lab Data Result diagrams: 02/07/17 10:43 02/07/17 10:43 Lab Results 02/07/17 02/07/17 02/07/17 Range/Units 10:43 10:43 10:44 WBC 3.4 L (3.8-10.6) k/uL RBC 4.06 (3.80-5.40) m/uL Hgb 9.5 L (11.4-16.0) gm/dL Hct 33.2 L (34.0-46.0) % MCV 81.7 (80.0-100.0) fL MCH 23.5 L (25.0-35.0) pg MCHC 28.8 L (31.0-37.0) g/dL RDW 18.2 H (11.5-15.5) % Plt Count 276 (150-450) k/uL Neutrophils % 51 % Lymphocytes % 36 % Monocytes % 6 % Eosinophils % 4 % Basophils % 1 % Neutrophils # 1.7 (1.3-7.7) k/uL Lymphocytes # 1.2 (1.0-4.8) k/uL Monocytes # 0.2 (0-1.0) k/uL Eosinophils # 0.2 (0-0.7) k/uL Basophils # 0.0 (0-0.2) k/uL Hypochromasia Marked Anisocytosis Slight Microcytosis Slight Sodium 139 (137-145) mmol/L Potassium 4.5 (3.5-5.1) mmol/L Chloride 108 H (98-107) mmol/L Carbon Dioxide 24 (22-30) mmol/L Anion Gap 7 mmol/L BUN 9 (7-17) mg/dL Creatinine 0.56 (0.52-1.04) mg/dL Est GFR (MDRD) Af Amer >60 (>60 ml/min/1.73 sqM) Est GFR (MDRD) Non-Af >60 (>60 ml/min/1.73 sqM) Glucose 76 (74-99) mg/dL Calcium 8.7 (8.4-10.2) mg/dL Total Bilirubin 0.3 (0.2-1.3) mg/dL AST 31 (14-36) U/L ALT 29 (9-52) U/L Alkaline Phosphatase 44 (38-126) U/L Total Protein 6.6 (6.3-8.2) g/dL Albumin 3.6 (3.5-5.0) g/dL Amylase 45 (30-110) U/L Lipase 90 (23-300) U/L Urine Color Yellow Urine Appearance Cloudy H (Clear) Urine pH 5.5 (5.0-8.0) Ur Specific [place] 1.021 (1.001-1.035) Urine Protein Negative (Negative) Urine Glucose (UA) Negative (Negative) Urine Ketones Negative (Negative) Urine Blood Negative (Negative) Urine Nitrite Negative (Negative) Urine Bilirubin Negative (Negative) Urine Urobilinogen 2.0 (<2.0) mg/dL Ur Leukocyte Esterase Negative (Negative) Urine RBC 1 (0-5) /hpf Urine WBC 2 (0-5) /hpf Ur Squamous Epith Cells 8 H (0-4) /hpf Urine Bacteria Occasional H (None) /hpf Urine Mucus Rare H (None) /hpf Disposition Clinical Impression: Abdominal wall strain Disposition: HOME SELF-CARE Condition: Stable Instructions: Abdominal Pain (ED) Additional Instructions: Please return to the Emergency Department if symptoms worsen or any other concerns. Prescriptions: Hydrocodone/Acetaminophen [[place] 5-325] 1 tab PO Q6HR PRN #15 tab PRN Reason: Pain Referrals: Dominic Funes MD [Primary Care Provider] - 1-2 days Time of Disposition: 11:44
[2017-02-07] MEDS ORDERED: HYDROcodone/APAP 5-325MG 1 EACH TAB PO STA (10:47)
[2017-02-07 10:56] LABS: Anisocytosis Slight; Basophils % (A) 1 %; CH 24.4; CHCM 30.1; Eosinophils # (A) 0.2 k/uL (0-0.7); Eosinophils % (A) 4 %; HCT 33.2 % (34.0-46.0); HGB 9.5 gm/dL (11.4-16.0); Hypochromasia Marked; Luc # (Auto) 0.09; Luc % (Auto) 3; Lymphocytes # (A) 1.2 k/uL (1.0-4.8); Lymphocytes % (A) 36 %; MCH 23.5 pg (25.0-35.0); MCHC 28.8 g/dL (31.0-37.0); MCV 81.7 fL (80.0-100.0); Mean Platelet Volume 7.3; Microcytosis Slight; Monocytes # (A) 0.2 k/uL (0-1.0); Monocytes % (A) 6 %; Neutrophils # (A) 1.7 k/uL (1.3-7.7); Neutrophils % (A) 51 %; RBC 4.06 m/uL (3.80-5.40); RDW 18.2 % (11.5-15.5); WBC 3.4 k/uL (3.8-10.6); WBC (Perox) 3.45
[2017-02-07 10:57] LABS: Appearance,Urine Cloudy (Clear); Bacteria,Urine Occasional /hpf; Bilirubin,Urine Negative (Negative); Glucose,Urine (UA) Negative (Negative); Ketones,Urine Negative (Negative); Leukocyte Esterase,Urine Negative (Negative); Mucus,Urine Rare /hpf; Nitrite,Urine Negative (Negative); PH, Urine 5.5 (5.0-8.0); Particle Count 4264; Protein,Urine Negative (Negative); RBC,Urine 1 /hpf (0-5); Specific Gravity,Urine 1.021 (1.001-1.035); Squamous Epithelial Cell,Urine 8 /hpf (0-4); UA Billing (MACRO vs. MICRO) MICRO; WBC,Urine 2 /hpf (0-5)
[2017-02-07 11:08] LABS: ALT 29 U/L (9-52); AST 31 U/L (14-36); Alkaline Phosphatase 44 U/L (38-126); Amylase 45 U/L (30-110); Anion Gap 7 mmol/L; Blood Urea Nitrogen 9 mg/dL (7-17); Calcium 8.7 mg/dL (8.4-10.2); Carbon Dioxide 24 mmol/L (22-30); Chloride 108 mmol/L (98-107); Glucose 76 mg/dL (74-99); Non-African American GFR(MDRD) >60 (>60 ml/min/1.73 sqM); Potassium 4.5 mmol/L (3.5-5.1); Sodium 139 mmol/L (137-145); Total Bilirubin 0.3 mg/dL (0.2-1.3); Total Protein 6.6 g/dL (6.3-8.2)
--- NOTE | 2017-02-07 11:33 | US ---
EXAMINATION TYPE: US transvaginal DATE OF EXAM: 02/07/2017 COMPARISON: Previous study dated 11/14/2015. CLINICAL HISTORY: Pain after lifting heavy object on Wednesday, ovarian cyst removed on left 6 weeks jas or. TECHNIQUE: Transvaginal (TV) Date of LMP: 01-19-17 EXAM MEASUREMENTS: Uterus: 7.5 x 3.8 x 6.1 cm Endometrial Stripe: 0.7 cm Right Ovary: 2.1 x 1.6 x 1.7 cm Left Ovary: 3.1 x 2.3 x 2.4 cm 1. Uterus: small scattered echogenic in COREY, possible calcifications 2. Endometrium: wnl 3. Right Ovary: wnl 4. Left Ovary: wnl Spectral, color and waveform doppler imaging shows good arterial and venous flow within the ovaries ; there is no evidence for ovarian torsion. 5. Bilateral Adnexa: wnl 6. Posterior cul-de-sac: small amount of free fluid IMPRESSION: ESSENTIALLY NORMAL ULTRASOUND OF THE PELVIS.
[2017-02-07 11:58] VITALS: BP 106/65; PULSE 95; TEMP 98.8
== END 2017-02-07 11:58 | disposition home or self-care (01) ==
LOC: EC 09:41
DX: S39.011A Strain of muscle, fascia and tendon of abdomen, initial encounter (principal); Z90.49 Acquired absence of other specified parts of digestive tract; Z98.51 Tubal ligation status; Z87.891 Personal history of nicotine dependence; Z79.899 Other long term (current) drug therapy; Z88.1 Allergy status to other antibiotic agents; Z88.6 Allergy status to analgesic agent; Z88.8 Allergy status to other drugs, medicaments and biological substances; X50.0XXA Overexertion from strenuous movement or load, initial encounter; Y93.89 Activity, other specified
CPT/HCPCS: 36415; 76830; 80053; 81001; 82150; 83690; 85025; 93975; 99284

== ENCOUNTER 2017-08-24 13:20 | Emergency (ER) | payer OTHER ==
[2017-08-24 13:44] VITALS: PULSE 87
[2017-08-24 14:31] LABS: Anisocytosis Slight; Appearance,Urine Clear (Clear); Basophils % (A) 1 %; Bilirubin,Urine Negative (Negative); Blood,Urine Negative (Negative); Color,Urine Yellow; Eosinophils # (A) 0.3 k/uL (0-0.7); Eosinophils % (A) 6 %; Glucose,Urine (UA) Negative (Negative); HCT 34.7 % (34.0-46.0); HGB 9.9 gm/dL (11.4-16.0); Hypochromasia Marked; Ketones,Urine Negative (Negative); Leukocyte Esterase,Urine Negative (Negative); Lymphocytes # (A) 1.7 k/uL (1.0-4.8); Lymphocytes % (A) 33 %; MCH 21.4 pg (25.0-35.0); MCHC 28.7 g/dL (31.0-37.0); MCV 74.6 fL (80.0-100.0); Mean Platelet Volume 8.1; Microcytosis Moderate; Monocytes # (A) 0.3 k/uL (0-1.0); Monocytes % (A) 7 %; Neutrophils # (A) 2.7 k/uL (1.3-7.7); Neutrophils % (A) 52 %; Nitrite,Urine Negative (Negative); PH, Urine 6.5 (5.0-8.0); Platelet Count 333 k/uL (150-450); Protein,Urine Negative (Negative); RBC 4.64 m/uL (3.80-5.40); RDW 18.3 % (11.5-15.5); Specific Gravity,Urine 1.016 (1.001-1.035); WBC 5.1 k/uL (3.8-10.6)
[2017-08-24 14:43] LABS: ALT 42 U/L (9-52); AST 24 U/L (14-36); Albumin 4.3 g/dL (3.5-5.0); Alkaline Phosphatase 76 U/L (38-126); Amylase 63 U/L (30-110); Anion Gap 14 mmol/L; Blood Urea Nitrogen 12 mg/dL (7-17); Calcium 9.3 mg/dL (8.4-10.2); Carbon Dioxide 26 mmol/L (22-30); Chloride 101 mmol/L (98-107); Glucose 90 mg/dL (74-99); Lipase 102 U/L (23-300); Potassium 4.7 mmol/L (3.5-5.1); Sodium 141 mmol/L (137-145); Total Bilirubin 0.1 mg/dL (0.2-1.3); Total Protein 7.5 g/dL (6.3-8.2)
[2017-08-24] MEDS ORDERED: ONDANSETRON 4 MG ODT STARTER PACK 2 TAB BTL PO STA (17:15)
--- NOTE | 2017-08-24 17:18 | ED ---
Nausea/Vomiting/Diarrhea HPI - General Chief complaint: Nausea/Vomiting/Diarrhea Stated complaint: abdominal pain/vomiting Time Seen by Provider: 08/24/17 17:03 Source: patient, RN notes reviewed Mode of arrival: ambulatory Limitations: no limitations - History of Present Illness Initial comments: 41-year-old female presented emergency department for nausea vomiting diarrhea. Patient states symptoms started state. Patient has been present for several hours and states that she feels better. Patient denies any melena, hematochezia. Denies any chest pain shortness breath. Patient denies any hematuria or dysuria. Patient states that she is feeling much improved at this time. Patient sent here from work. - Related Data Home Medications Medication Instructions Recorded Confirmed Ferrous Sulfate [Feosol] 325 mg PO AC-TID 02/07/17 08/24/17 Dicyclomine [Bentyl] 20 mg PO QID 04/21/17 08/24/17 Multivitamins, Thera [Multivitamin 1 tab PO DAILY 04/21/17 08/24/17 (formulary)] Sertraline [Zoloft] 50 mg PO DAILY 08/24/17 08/24/17 Previous Rx's Medication Instructions Recorded Ondansetron Odt [Zofran Odt] 4 mg PO Q8HR PRN #10 tab 08/24/17 Allergies Allergy/AdvReac Type Severity Reaction Status Date / Time cephalexin monohydrate Allergy Rash/Hives Verified 08/24/17 17:02 [From Keflex] erythromycin base Allergy Rash/Hives Verified 08/24/17 17:02 [Erythromycin Base] ibuprofen Allergy Nausea & Verified 08/24/17 17:02 Vomiting metoclopramide HCl Allergy Rash/Hives Verified 08/24/17 17:02 [From Reglan] Review of Systems ROS Statement: Those systems with pertinent positive or pertinent negative responses have been documented in the HPI. ROS Other: All systems not noted in ROS Statement are negative. Past Medical History Past Medical History: Asthma, Seizure Disorder Additional Past Medical History / Comment(s): colitis, asthma as a child, hx of ruptured gallbladder with + hepatitis c, anemia., Gastric Bypass (2011). States having vomiting, stomach pains and loose stools. History of Any Multi-Drug Resistant Organisms: None Reported Past Surgical History: Adenoidectomy, Bariatric Surgery, Cholecystectomy, Tonsillectomy, Tubal Ligation Additional Past Surgical History / Comment(s): ovarian cyst removal, Gastric bypass (2011) Past Anesthesia/Blood Transfusion Reactions: Motion Sickness, Postoperative Nausea & Vomiting (PONV) Additional Past Anesthesia/Blood Transfusion Reaction / Comment(s): HX OF BLOOD TRANSFUSION - NO REACTION Past Psychological History: Anxiety, Depression Smoking Status: Former smoker Past Alcohol Use History: None Reported Past Drug Use History: None Reported - Past Family History Mother Family Medical History: Cancer Additional Family Medical History / Comment(s): endometrial and breast cancer Father Family Medical History: Cancer Additional Family Medical History / Comment(s): esophageal cancer General Exam Limitations: no limitations General appearance: alert, in no apparent distress Head exam: Present: atraumatic, normocephalic, normal inspection ENT exam: Present: mucous membranes moist Respiratory exam: Present: normal lung sounds bilaterally. Absent: respiratory distress, wheezes, rales, rhonchi, stridor Cardiovascular Exam: Present: regular rate, normal rhythm, normal heart sounds. Absent: systolic murmur, diastolic murmur, rubs, gallop, clicks GI/Abdominal exam: Present: soft, normal bowel sounds. Absent: distended, tenderness, guarding, rebound, rigid Back exam: Absent: CVA tenderness (R), CVA tenderness (L) Course Vital Signs 08/24/17 13:42 Temperature 99.3 F Pulse Rate 87 Respiratory 18 Rate Blood Pressure 112/71 O2 Sat by Pulse 96 Oximetry Medical Decision Making - Medical Decision Making 41-year-old female presented for nausea vomiting diarrhea. Patient is improved after pain for several hours. Patient be discharged with Zofran sugars no signs of dehydration. This most likely skittish enteritis. Patient agrees to plan. Return parameters were discussed. - Lab Data Result diagrams: 08/24/17 14:17 08/24/17 14:17 Lab Results 08/24/17 08/24/17 08/24/17 Range/Units 14:17 14:17 14:17 WBC 5.1 (3.8-10.6) k/uL RBC 4.64 (3.80-5.40) m/uL Hgb 9.9 L (11.4-16.0) gm/dL Hct 34.7 (34.0-46.0) % MCV 74.6 L (80.0-100.0) fL MCH 21.4 L (25.0-35.0) pg MCHC 28.7 L (31.0-37.0) g/dL RDW 18.3 H (11.5-15.5) % Plt Count 333 (150-450) k/uL Neutrophils % 52 % Lymphocytes % 33 % Monocytes % 7 % Eosinophils % 6 % Basophils % 1 % Neutrophils # 2.7 (1.3-7.7) k/uL Lymphocytes # 1.7 (1.0-4.8) k/uL Monocytes # 0.3 (0-1.0) k/uL Eosinophils # 0.3 (0-0.7) k/uL Basophils # 0.0 (0-0.2) k/uL Hypochromasia Marked Anisocytosis Slight Microcytosis Moderate Sodium 141 (137-145) mmol/L Potassium 4.7 (3.5-5.1) mmol/L Chloride 101 (98-107) mmol/L Carbon Dioxide 26 (22-30) mmol/L Anion Gap 14 mmol/L BUN 12 (7-17) mg/dL Creatinine 0.70 (0.52-1.04) mg/dL Est GFR (CKD-EPI)AfAm >90 (>60 ml/min/1.73 sqM) Est GFR (CKD-EPI)NonAf >90 (>60 ml/min/1.73 sqM) Glucose 90 (74-99) mg/dL Calcium 9.3 (8.4-10.2) mg/dL Total Bilirubin 0.1 L (0.2-1.3) mg/dL AST 24 (14-36) U/L ALT 42 (9-52) U/L Alkaline Phosphatase 76 (38-126) U/L Total Protein 7.5 (6.3-8.2) g/dL Albumin 4.3 (3.5-5.0) g/dL Amylase 63 (30-110) U/L Lipase 102 (23-300) U/L Urine Color Yellow Urine Appearance Clear (Clear) Urine pH 6.5 (5.0-8.0) Ur Specific [place] 1.016 (1.001-1.035) Urine Protein Negative (Negative) Urine Glucose (UA) Negative (Negative) Urine Ketones Negative (Negative) Urine Blood Negative (Negative) Urine Nitrite Negative (Negative) Urine Bilirubin Negative (Negative) Urine Urobilinogen 2.0 (<2.0) mg/dL Ur Leukocyte Esterase Negative (Negative) Disposition Clinical Impression: Gastroenteritis Disposition: HOME SELF-CARE Condition: Stable Instructions: Acute Nausea and Vomiting (ED) Additional Instructions: Please return to the Emergency Department if symptoms worsen or any other concerns. Prescriptions: Ondansetron Odt [Zofran Odt] 4 mg PO Q8HR PRN #10 tab PRN Reason: Nausea Referrals: Dominic Funes MD [Primary Care Provider] - 1-2 days Time of Disposition: 17:17
[2017-08-24 17:55] VITALS: BP 102/58; RESP 12; TEMP 98.7
== END 2017-08-24 18:05 | disposition home or self-care (01) ==
LOC: EC 13:20
DX: K52.9 Noninfective gastroenteritis and colitis, unspecified (principal); D64.9 Anemia, unspecified; F41.9 Anxiety disorder, unspecified; F32.9 Major depressive disorder, single episode, unspecified; Z90.49 Acquired absence of other specified parts of digestive tract; Z87.891 Personal history of nicotine dependence; Z79.899 Other long term (current) drug therapy; Z88.1 Allergy status to other antibiotic agents; Z88.6 Allergy status to analgesic agent; Z88.8 Allergy status to other drugs, medicaments and biological substances; Z98.84 Bariatric surgery status
CPT/HCPCS: 36415; 80053; 82150; 83690; 85025; 81003; 99284; S0119

== ENCOUNTER → 2017-12-15 | Outpatient (CLI) | payer OTHER ==
--- NOTE | 2017-12-15 15:36 | CT ---
EXAMINATION TYPE: CT abdomen pelvis wo con DATE OF EXAM: 12/15/2017 HISTORY: Generalized abdominal pain xfew days. CT DLP: 480.2 mGycm. Automated Exposure Control for Dose Reduction was Utilized. TECHNIQUE: CT scan of the abdomen and pelvis is performed without oral or IV contrast. COMPARISON: CT abdomen and pelvis November 26, 2016 FINDINGS: Within the limitations of a non-contrast study, the following observations are made. LUNG BASES: No significant abnormality is appreciated. LIVER/GB: Gallbladder is not visualized and presumed surgically absent similar to prior. PANCREAS: No significant abnormality is seen. SPLEEN: No significant abnormality is seen. ADRENALS: No significant abnormality is seen. KIDNEYS: No renal calculi or hydronephrosis is present bilaterally. BOWEL: Surgical sutures epigastric region from gastric bypass procedure are redemonstrated. Additiona l sutures in the mid abdomen anteriorly are redemonstrated. There is no suspicious small or large bow el dilatation. There is prominence of fecal material in the right and transverse colon noted. GENITAL ORGANS: Anteverted uterus is seen. Small to moderate amount of free fluid in pelvic cul-de-sa c current study axial image 117 is now present. Tubal ligation clips left pelvis is now suspected axi al image 119 not clearly seen on prior. LYMPH NODES: No greater than 1cm abdominal or pelvic lymph nodes are appreciated. OSSEOUS STRUCTURES: No significant abnormality is seen. OTHER: No significant additional abnormality is seen. IMPRESSION: Small to moderate amount of free fluid in pelvic cul-de-sac of uncertain etiology otherwi se no suspicious new finding seen on noncontrast CT to account for patient's symptoms of acute onset pain.
== END | disposition home or self-care (01) ==
LOC: RADCTMAIN 15:14
PROVIDERS: ATTEND Surgery Plastic and Reconstructive Surgery
DX: R10.9 Unspecified abdominal pain (principal); R93.41 Abnormal radiologic findings on diagnostic imaging of renal pelvis, ureter, or bladder
CPT/HCPCS: 74176

== ENCOUNTER → 2017-12-15 | Outpatient (CLI) | payer OTHER ==
--- NOTE | 2017-12-15 14:33 | P.HPBAR ---
Bariatric H&P - History & Physicial H&P Date: 12/15/17 History & Physicial: Visit/CC: Patient initial contact: Initial weight: Initial weight in pounds: Height: Initial BMI: Last weight: Current weight: Current weight in pounds: Current BMI: [facility] body weight (based on NIH guidelines): Excess body weight loss: The patient is a 42 year-old F who presents for Bariatric Assessment. HPI: Highest at 370 pounds in 2009. She has maintained 200 pounds. Her lowest weight was 98 pounds. She reports severe back pain from her skin. She has been using Nystatin powder and Cornstarch for her panniculitis. She reports generalized fatigue. ABDOMEN: Has mild panniculitis. Weight of skin 5 to 10 pounds. Hangs over pubis over 4 inches. Possible incisional hernia of the epigastrium. PLAN: 1. Continue Nystatin for skin. 2. Proceed with EGD 3. CT of the abdomen and pelvic for suspected hernia 4. Blood work recommended. 5. Bariatric dietitian Past Medical History Past Medical History: Asthma, Seizure Disorder Additional Past Medical History / Comment(s): colitis, asthma as a child, hx of ruptured gallbladder with + hepatitis c, anemia., Gastric Bypass (2011). States having vomiting, stomach pains and loose stools. History of Any Multi-Drug Resistant Organisms: None Reported Past Surgical History: Adenoidectomy, Bariatric Surgery, Cholecystectomy, Tonsillectomy, Tubal Ligation Additional Past Surgical History / Comment(s): ovarian cyst removal, Gastric bypass (2011) Past Anesthesia/Blood Transfusion Reactions: Motion Sickness, Postoperative Nausea & Vomiting (PONV) Additional Past Anesthesia/Blood Transfusion Reaction / Comm: HX OF BLOOD TRANSFUSION - NO REACTION Past Psychological History: Anxiety, Depression Smoking Status: Former smoker Past Alcohol Use History: None Reported Past Drug Use History: None Reported - Past Family History Mother Family Medical History: Cancer Additional Family Medical History / Comment(s): endometrial and breast cancer Father Family Medical History: Cancer Additional Family Medical History / Comment(s): esophageal cancer Bariatric Checklist Checklist: Plan: Checklist: EGD: 1. Hiatal hernia: 2. H. Pylori: HgbA1c: Vitamin D: Smoking: Former smoker Primary care physician referral: Psychiatry clearance: Cardiology clearance: Sleep study: Diet journal: VTE risk score: VTE risk level: Rehab needs at discharge:
[2017-12-15 14:56] VITALS: BP 113/57; PULSE 113; RESP 20; TEMP 98; BMI 27.6
[2017-12-15 16:04] LABS: Anisocytosis Slight; HCT 38.1 % (34.0-46.0); HGB 11.6 gm/dL (11.4-16.0); Hypochromasia Slight; MCH 27.4 pg (25.0-35.0); MCHC 30.3 g/dL (31.0-37.0); MCV 90.5 fL (80.0-100.0); Mean Platelet Volume 7.9; Platelet Count 217 k/uL (150-450); RBC 4.21 m/uL (3.80-5.40); RDW 19.4 % (11.5-15.5); WBC 5.4 k/uL (3.8-10.6)
[2017-12-15 16:13] LABS: INR 1.1 (<1.2); Partial Thromboplastin Time 23.3 sec (22.0-30.0); Prothrombin Time 10.4 sec (9.0-12.0)
[2017-12-15 18:54] LABS: ALT 42 U/L (9-52); AST 31 U/L (14-36); Albumin 4.1 g/dL (3.5-5.0); Alkaline Phosphatase 64 U/L (38-126); Anion Gap 7 mmol/L; Blood Urea Nitrogen 11 mg/dL (7-17); Calcium 9.1 mg/dL (8.4-10.2); Carbon Dioxide 26 mmol/L (22-30); Chloride 106 mmol/L (98-107); Cholesterol 181 mg/dL (<200); Glucose 88 mg/dL (74-99); HDL Cholesterol 54 mg/dL (40-60); LDL Cholesterol,Calculated 110 mg/dL (0-99); Phosphorus 4.1 mg/dL (2.5-4.5); Potassium 4.6 mmol/L (3.5-5.1); Sodium 139 mmol/L (137-145); Total Bilirubin 0.1 mg/dL (0.2-1.3); Total Protein 7.2 g/dL (6.3-8.2); Triglycerides 86 mg/dL (<150)
[2017-12-16 00:56] LABS: Iron Saturation 9.42 (12.00-45.00); Vitamin D 25 Hydroxy 16.9 ng/mL (30.0-100.0)
[2017-12-16 01:07] LABS: Folate, Serum 15.6 ng/mL
[2017-12-16 01:17] LABS: Parathyroid Hormone Intact 74.4 pg/mL (14.0-72.0)
[2017-12-16 02:14] LABS: Hemoglobin A1C 5.6 % (4.0-6.0)
[2017-12-16 11:48] LABS: Vitamin B1 53 ug/L (38-122)
[2017-12-17 05:52] LABS: Vitamin A 58 ug/dL (38-106)
[2017-12-17 11:12] LABS: Zinc, Serum 75 ug/dL (60-130)
== END ==
LOC: BARWHC3 12:55
PROVIDERS: ATTEND Surgery Plastic and Reconstructive Surgery
DX: M79.3 Panniculitis, unspecified (principal); R53.83 Other fatigue; E66.01 Morbid (severe) obesity due to excess calories; F41.9 Anxiety disorder, unspecified; F32.9 Major depressive disorder, single episode, unspecified; E21.1 Secondary hyperparathyroidism, not elsewhere classified; D50.9 Iron deficiency anemia, unspecified; E89.1 Postprocedural hypoinsulinemia; K90.9 Intestinal malabsorption, unspecified; E55.9 Vitamin D deficiency, unspecified; K74.1 Hepatic sclerosis; N19 Unspecified kidney failure; K50.90 Crohn's disease, unspecified, without complications; Z98.84 Bariatric surgery status; Z87.19 Personal history of other diseases of the digestive system; Z87.891 Personal history of nicotine dependence; Z90.89 Acquired absence of other organs; Z98.51 Tubal ligation status; Z90.49 Acquired absence of other specified parts of digestive tract; Z68.27 Body mass index [BMI] 27.0-27.9, adult
CPT/HCPCS: 84255; 84134; 84425; 80061; 80053; 82607; 82728; 82525; 82746; 83540; 83550; 83735; 84100; 84443; 84590; 84630; 85027; 85610; 85730; 82306; 83970; 83036; 36415; G0463; 99201

== ENCOUNTER 2017-12-27 06:26 | Day surgery (SDC) | payer OTHER ==
[2017-12-22 14:37] VITALS: BMI 25.8
[~2017-12-27 06:26] MED LIST: LACTATED RINGERS 1,000 ML IV SCH; LIDOCAINE 1% 20 ML VIAL (10MG/ML) FOR IV START INTRADERMA PRN
[2017-12-27] MEDS ORDERED: IV FLUID CONTINUATION 1,000 ML IV ONE (06:54)
[2017-12-27 07:07] VITALS: TEMP 98.2
--- NOTE | 2017-12-27 07:14 | P.GSHP ---
History of Present Illness H&P Date: 12/27/17 CHIEF COMPLAINT: GERD HISTORY OF PRESENT ILLNESS: The patient is a 42-year-old female who presents reports gastroesophageal reflux disease. Upper endoscopy was offered for further evaluation and management. PAST MEDICAL HISTORY: Please see list. PAST SURGICAL HISTORY: Please see list. MEDICATIONS: Please see list. ALLERGIES: Please see list. SOCIAL HISTORY: No illicit drug use FAMILY HISTORY: No reports of Crohn disease or ulcerative colitis. REVIEW OF ORGAN SYSTEMS: CONSTITUTIONAL: No reports of fevers or chills. GI: Denies any blood in stools or constipation. PHYSICAL EXAM: VITAL SIGNS: Stable GENERAL: Well-developed and pleasant in no acute distress. HEENT: No scleral icterus. Extraocular movements grossly intact. Moist buccal mucosa. NECK: Supple without lymphadenopathy. CHEST: Unlabored respirations. Equal bilateral excursions. CARDIOVASCULAR: Regular rate and rhythm. Distal 2+ pulses. ABDOMEN: Soft, nondistended. MUSCULOSKELETAL: No clubbing, cyanosis, or edema. ASSESSMENT: 1. Gastroesophageal reflux disease PLAN: 1. Recommend proceeding with an upper endoscopy Past Medical History Past Medical History: Asthma, Seizure Disorder Additional Past Medical History / Comment(s): colitis, asthma as a child, hx of ruptured gallbladder with + hepatitis c, anemia., Gastric Bypass (2011). States having vomiting, stomach pains and loose stools. History of Any Multi-Drug Resistant Organisms: None Reported Past Surgical History: Adenoidectomy, Bariatric Surgery, Cholecystectomy, Tonsillectomy, Tubal Ligation Additional Past Surgical History / Comment(s): ovarian cyst removal, Gastric bypass (2011) Past Anesthesia/Blood Transfusion Reactions: Motion Sickness, Postoperative Nausea & Vomiting (PONV) Additional Past Anesthesia/Blood Transfusion Reaction / Comment(s): HX OF BLOOD TRANSFUSION - NO REACTION Smoking Status: Former smoker - Past Family History Mother Family Medical History: Cancer Additional Family Medical History / Comment(s): endometrial and breast cancer Father Family Medical History: Cancer Additional Family Medical History / Comment(s): esophageal cancer Medications and Allergies Home Medications Medication Instructions Recorded Confirmed Type Ergocalciferol [Vitamin D2] 10,000 unit PO QID 12/23/17 12/27/17 History Ferrous Sulfate [Feosol] 325 mg PO TID 12/23/17 12/27/17 History Allergies Allergy/AdvReac Type Severity Reaction Status Date / Time cephalexin monohydrate Allergy Rash/Hives Verified 12/23/17 14:29 [From Keflex] erythromycin base Allergy Rash/Hives Verified 12/23/17 14:29 [Erythromycin Base] metoclopramide HCl Allergy Rash/Hives Verified 12/23/17 14:29 [From Reglan] ibuprofen AdvReac Nausea & Verified 12/23/17 14:29 Vomiting Surgical - Exam Vital Signs Temp Pulse Resp BP Pulse Ox 98.2 F 80 14 101/70 97 12/27/17 07:06 12/27/17 07:06 12/27/17 07:06 12/27/17 07:06 12/27/17 07:06
[2017-12-27] MEDS ORDERED: PROPOFOL 10 MG/ML 20 ML VIAL IV ONE (07:16)
--- NOTE | 2017-12-27 07:39 | P.PCN ---
Date of Procedure: 12/27/17 Description of Procedure: PREOPERATIVE DIAGNOSIS: Dysphagia. s/p Karrie-en-y gastric bypass. Nausea with vomiting. POSTOPERATIVE DIAGNOSIS: Dysphagia. s/p Karrie-en-y gastric bypass. Nausea with vomiting. Gastrojejunal stricture OPERATION: Esophagogastrojejunoscopy with balloon dilatation from 18 to 20 mm. SURGEON: Echo Nickerson MD ANESTHESIA: MAC. INDICATIONS: The patient is a 42-year-old female who presents with a history of dysphagia, gastric bypass including nausea and vomiting. Benefits and risks of the procedure were described. Informed consent was obtained. DESCRIPTION: The patient was brought into the endoscopy suite and laid in the left lateral decubitus position. After a timeout was confirmed, the procedure was initiated. An Olympus gastroscope was passed along the posterior oropharynx down to the distal esophagus where the squamocolumnar junction was unremarkable. The gastric pouch was entered. A gastrojejunal stricture of 18 mm was found as the adult gastroscope was 9.5 mm in size. A Transactis balloon dilator was placed through the scope. Final insufflation up to 20 mm was performed with a total of 2 minutes. The scope was advanced up to 60 cm from the incisors into the Karrie limb. The mucosa of the gastrojejunal anastomosis was intact. No gastrojejunal marginal ulcer was encountered. No full-thickness injury was encountered. The GI tract was desufflated. The patient tolerated the procedure well. FINDINGS: Squamocolumnar junction unremarkable at 37 cm. Stricture of approximately 18 mm encountered. No chronic gastrojejunal ulceration encountered. Successful balloon dilatation to 20 mm. Gastric pouch 5 cm. RECOMMENDATIONS: Upper endoscopy as needed Plan - Discharge Summary New Discharge Prescriptions: No Action Ergocalciferol [Vitamin D2] 10,000 unit PO QID Ferrous Sulfate [Feosol] 325 mg PO TID Discharge Medication List Ergocalciferol [Vitamin D2] 10,000 unit PO QID 12/23/17 [History] Ferrous Sulfate [Feosol] 325 mg PO TID 12/23/17 [History]
[2017-12-27 07:42] VITALS: RESP 16
[2017-12-27 08:01] VITALS: BP 111/68; PULSE 72
== END 2017-12-27 08:26 | disposition home or self-care (01) ==
LOC: ORWHC2ENDO 06:26
PROVIDERS: ATTEND Surgery Plastic and Reconstructive Surgery
DX: K31.89 Other diseases of stomach and duodenum (principal); Z98.84 Bariatric surgery status; J45.909 Unspecified asthma, uncomplicated; G40.909 Epilepsy, unspecified, not intractable, without status epilepticus; D64.9 Anemia, unspecified; Z79.899 Other long term (current) drug therapy; Z88.1 Allergy status to other antibiotic agents; Z88.8 Allergy status to other drugs, medicaments and biological substances; Z90.49 Acquired absence of other specified parts of digestive tract; Z98.51 Tubal ligation status; Z87.891 Personal history of nicotine dependence
CPT/HCPCS: 81025; 43245; J2704; C1726; 43249

== ENCOUNTER → 2018-02-09 | Outpatient (CLI) | payer OTHER ==
[2018-02-09 19:09] LABS: Iron Saturation 45.94 (12.00-45.00)
== END | disposition home or self-care (01) ==
LOC: LABWHC1 12:03
PROVIDERS: ATTEND Surgery Plastic and Reconstructive Surgery
DX: D50.9 Iron deficiency anemia, unspecified (principal); E66.01 Morbid (severe) obesity due to excess calories
CPT/HCPCS: 36415; 82728; 83540; 83550

== ENCOUNTER 2019-03-28 09:25 | Emergency (ER) | payer BC ==
[2019-03-28 09:36] VITALS: RESP 18
[2019-03-28] MEDS ORDERED: ACETAMINOPHEN TAB 500 MG TAB PO STA (10:02)
[2019-03-28] MEDS ORDERED: ONDANSETRON 4 MG/2 ML VIAL IVP STA (10:05)
--- NOTE | 2019-03-28 10:12 | ED ---
General Adult HPI - General Chief complaint: Vaginal Bleeding Stated complaint: Bleeding Time Seen by Provider: 03/28/19 09:30 Source: patient, RN notes reviewed, old records reviewed Mode of arrival: ambulatory Limitations: no limitations - History of Present Illness Initial comments: This is a 43-year-old female who presents to the emergency department stating that she's been having vaginal bleeding since March 08. Patient states she seen her primary medical care doctor and she was put on contraception medication that should slow her bleeding down but it has not helped. Patient states she started vomiting last night and has had pressure in the right lower quadrant but no pain. Patient states she is nauseated and does not feel weak. She also feels mildly lightheaded. Patient denies any diarrhea. Patient denies any chest pain palpitations or difficulty breathing. Patient denies any shortness of breath. Patient denies any recent fever chills. - Related Data Home Medications Medication Instructions Recorded Confirmed Ergocalciferol [Vitamin D2] 10,000 unit PO QID 12/23/17 12/30/17 Ferrous Sulfate [Feosol] 325 mg PO TID 12/23/17 12/30/17 Allergies Allergy/AdvReac Type Severity Reaction Status Date / Time cephalexin monohydrate Allergy Rash/Hives Verified 03/28/19 09:31 [From Keflex] erythromycin base Allergy Rash/Hives Verified 03/28/19 09:31 [Erythromycin Base] metoclopramide HCl Allergy Rash/Hives Verified 03/28/19 09:31 [From Reglan] ibuprofen AdvReac Nausea & Verified 03/28/19 09:31 Vomiting Review of Systems ROS Statement: Those systems with pertinent positive or pertinent negative responses have been documented in the HPI. ROS Other: All systems not noted in ROS Statement are negative. Past Medical History Past Medical History: Asthma, Seizure Disorder Additional Past Medical History / Comment(s): colitis, asthma as a child, hx of ruptured gallbladder with + hepatitis c, anemia., Gastric Bypass (2011). States having vomiting, stomach pains and loose stools. History of Any Multi-Drug Resistant Organisms: None Reported Past Surgical History: Adenoidectomy, Bariatric Surgery, Cholecystectomy, Tonsillectomy, Tubal Ligation Additional Past Surgical History / Comment(s): ovarian cyst removal, Gastric bypass (2011) Past Anesthesia/Blood Transfusion Reactions: Motion Sickness, Postoperative Nausea & Vomiting (PONV) Additional Past Anesthesia/Blood Transfusion Reaction / Comment(s): HX OF BLOOD TRANSFUSION - NO REACTION Past Psychological History: Anxiety, Depression Smoking Status: Former smoker Past Alcohol Use History: None Reported Past Drug Use History: None Reported - Past Family History Mother Family Medical History: Cancer Additional Family Medical History / Comment(s): endometrial and breast cancer Father Family Medical History: Cancer Additional Family Medical History / Comment(s): esophageal cancer General Exam - General Exam Comments Initial Comments: GENERAL: Patient is well-developed and well-nourished. Patient is nontoxic and well- hydrated and is in mild distress. I took the patient's temperature it was 100 .5. ENT: Neck is soft and supple. No significant lymphadenopathy is noted. Oropharynx is clear. Moist mucous membranes. Neck has full range of motion without eliciting any pain. EYES: The sclera were anicteric and conjunctiva were pink and moist. Extraocular movements were intact and pupils were equal round and reactive to light. Eyelids were unremarkable. PULMONARY: Unlabored respirations. Good breath sounds bilaterally. No audible rales rhonchi or wheezing was noted. CARDIOVASCULAR: There is a regular rate and rhythm without any murmurs gallops or rubs. ABDOMEN: Soft and nontender with normal bowel sounds. SKIN: Skin is clear with no lesions or rashes and otherwise unremarkable. PELVIC: On speculum exam there was no abnormalities noted. On bimanual exam there were no areas of tenderness and no masses or areas of fullness. NEUROLOGIC: Patient is alert and oriented x3. Cranial nerves II through XII are grossly intact. Motor and sensory are also intact. Normal speech, volume and content. Symmetrical smile. MUSCULOSKELETAL: Normal extremities with adequate strength and full range of motion. LYMPHATICS: No significant lymphadenopathy is noted PSYCHIATRIC: Normal psychiatric evaluation. Limitations: no limitations Course Vital Signs 03/28/19 03/28/19 09:31 12:09 Temperature 98.2 F 99.3 F Pulse Rate 104 H 72 Respiratory 18 18 Rate Blood Pressure 113/80 106/80 O2 Sat by Pulse 99 99 Oximetry Medical Decision Making - Medical Decision Making Ultrasound showed a 2.8 cm cyst on the right. The endometrium was also thickened. Patient states she wants to go see her CHILD WELFARE ASSISTANT but she is waiting for referral f marco antonio Donaldson. - Lab Data Result diagrams: 03/28/19 09:50 03/28/19 09:50 Lab Results 03/28/19 03/28/19 03/28/19 Range/Units 09:50 09:50 09:50 WBC 6.6 (3.8-10.6) k/uL RBC 4.06 (3.80-5.40) m/uL Hgb 13.6 (11.4-16.0) gm/dL Hct 40.8 (34.0-46.0) % MCV 100.6 H (80.0-100.0) fL MCH 33.6 (25.0-35.0) pg MCHC 33.4 (31.0-37.0) g/dL RDW 12.9 (11.5-15.5) % Plt Count 224 (150-450) k/uL Neutrophils % 56 % Lymphocytes % 29 % Monocytes % 5 % Eosinophils % 7 % Basophils % 1 % Neutrophils # 3.7 (1.3-7.7) k/uL Lymphocytes # 1.9 (1.0-4.8) k/uL Monocytes # 0.3 (0-1.0) k/uL Eosinophils # 0.5 (0-0.7) k/uL Basophils # 0.1 (0-0.2) k/uL PT (9.0-12.0) sec INR (<1.2) APTT (22.0-30.0) sec Sodium 139 (137-145) mmol/L Potassium 4.4 (3.5-5.1) mmol/L Chloride 109 H (98-107) mmol/L Carbon Dioxide 23 (22-30) mmol/L Anion Gap 7 mmol/L BUN 12 (7-17) mg/dL Creatinine 0.67 (0.52-1.04) mg/dL Est GFR (CKD-EPI)AfAm >90 (>60 ml/min/1.73 sqM) Est GFR (CKD-EPI)NonAf >90 (>60 ml/min/1.73 sqM) Glucose 93 (74-99) mg/dL Plasma Lactic Acid Will 1.1 (0.7-2.0) mmol/L Calcium 9.1 (8.4-10.2) mg/dL Total Bilirubin 0.3 (0.2-1.3) mg/dL AST 20 (14-36) U/L ALT 17 (9-52) U/L Alkaline Phosphatase 60 (38-126) U/L Total Protein 7.3 (6.3-8.2) g/dL Albumin 4.2 (3.5-5.0) g/dL Urine Color Urine Appearance (Clear) Urine pH (5.0-8.0) Ur Specific [place] (1.001-1.035) Urine Protein (Negative) Urine Glucose (UA) (Negative) Urine Ketones (Negative) Urine Blood (Negative) Urine Nitrite (Negative) Urine Bilirubin (Negative) Urine Urobilinogen (<2.0) mg/dL Ur Leukocyte Esterase (Negative) Urine RBC (0-5) /hpf Urine WBC (0-5) /hpf Ur Squamous Epith Cells (0-4) /hpf Urine HCG, Qual (Not Detectd) 03/28/19 03/28/19 03/28/19 Range/Units 09:50 09:50 12:04 WBC (3.8-10.6) k/uL RBC (3.80-5.40) m/uL Hgb (11.4-16.0) gm/dL Hct (34.0-46.0) % MCV (80.0-100.0) fL MCH (25.0-35.0) pg MCHC (31.0-37.0) g/dL RDW (11.5-15.5) % Plt Count (150-450) k/uL Neutrophils % % Lymphocytes % % Monocytes % % Eosinophils % % Basophils % % Neutrophils # (1.3-7.7) k/uL Lymphocytes # (1.0-4.8) k/uL Monocytes # (0-1.0) k/uL Eosinophils # (0-0.7) k/uL Basophils # (0-0.2) k/uL PT 10.8 (9.0-12.0) sec INR 1.0 (<1.2) APTT 26.0 (22.0-30.0) sec Sodium (137-145) mmol/L Potassium (3.5-5.1) mmol/L Chloride (98-107) mmol/L Carbon Dioxide (22-30) mmol/L Anion Gap mmol/L BUN (7-17) mg/dL Creatinine (0.52-1.04) mg/dL Est GFR (CKD-EPI)AfAm (>60 ml/min/1.73 sqM) Est GFR (CKD-EPI)NonAf (>60 ml/min/1.73 sqM) Glucose (74-99) mg/dL Plasma Lactic Acid Will (0.7-2.0) mmol/L Calcium (8.4-10.2) mg/dL Total Bilirubin (0.2-1.3) mg/dL AST (14-36) U/L ALT (9-52) U/L Alkaline Phosphatase (38-126) U/L Total Protein (6.3-8.2) g/dL Albumin (3.5-5.0) g/dL Urine Color Light Red Urine Appearance Cloudy H (Clear) Urine pH 7.0 (5.0-8.0) Ur Specific [place] 1.004 (1.001-1.035) Urine Protein 1+ H (Negative) Urine Glucose (UA) Negative (Negative) Urine Ketones Negative (Negative) Urine Blood Moderate H (Negative) Urine Nitrite Negative (Negative) Urine Bilirubin Negative (Negative) Urine Urobilinogen <2.0 (<2.0) mg/dL Ur Leukocyte Esterase Negative (Negative) Urine RBC 68 H (0-5) /hpf Urine WBC 3 (0-5) /hpf Ur Squamous Epith Cells 1 (0-4) /hpf Urine HCG, Qual Not Detected (Not Detectd) Disposition Clinical Impression: Dysfunctional uterine bleeding Disposition: HOME SELF-CARE Condition: Good Instructions (If sedation given, give patient instructions): Dysfunctional Uterine Bleeding (ED) Additional Instructions: Patient should follow-up with her CHILD WELFARE ASSISTANT Is patient prescribed a controlled substance at d/c from ED?: No Referrals: Dominic Funes MD [Primary Care Provider] - 1-2 days Time of Disposition: 12:55
[2019-03-28 11:02] LABS: Basophils # (A) 0.1 k/uL (0-0.2); Basophils % (A) 1 %; Eosinophils # (A) 0.5 k/uL (0-0.7); Eosinophils % (A) 7 %; HCT 40.8 % (34.0-46.0); HGB 13.6 gm/dL (11.4-16.0); Lymphocytes # (A) 1.9 k/uL (1.0-4.8); Lymphocytes % (A) 29 %; MCH 33.6 pg (25.0-35.0); MCHC 33.4 g/dL (31.0-37.0); MCV 100.6 fL (80.0-100.0); Mean Platelet Volume 8.4; Monocytes # (A) 0.3 k/uL (0-1.0); Monocytes % (A) 5 %; Neutrophils # (A) 3.7 k/uL (1.3-7.7); Neutrophils % (A) 56 %; Platelet Count 224 k/uL (150-450); RBC 4.06 m/uL (3.80-5.40); RDW 12.9 % (11.5-15.5); WBC 6.6 k/uL (3.8-10.6)
[2019-03-28 11:09] LABS: ALT 17 U/L (9-52); AST 20 U/L (14-36); African American GFR (CKD) >90 (>60 ml/min/1.73 sqM); Albumin 4.2 g/dL (3.5-5.0); Alkaline Phosphatase 60 U/L (38-126); Anion Gap 7 mmol/L; Blood Urea Nitrogen 12 mg/dL (7-17); Calcium 9.1 mg/dL (8.4-10.2); Carbon Dioxide 23 mmol/L (22-30); Chloride 109 mmol/L (98-107); Glucose 93 mg/dL (74-99); Potassium 4.4 mmol/L (3.5-5.1); Sodium 139 mmol/L (137-145); Total Bilirubin 0.3 mg/dL (0.2-1.3); Total Protein 7.3 g/dL (6.3-8.2)
[2019-03-28 11:10] LABS: Appearance,Urine Cloudy (Clear); Bilirubin,Urine Negative (Negative); Blood,Urine Moderate (Negative); Color,Urine Light Red; Glucose,Urine (UA) Negative (Negative); Ketones,Urine Negative (Negative); Leukocyte Esterase,Urine Negative (Negative); Nitrite,Urine Negative (Negative); Protein,Urine 1+ (Negative); RBC,Urine 68 /hpf (0-5); Specific Gravity,Urine 1.004 (1.001-1.035); Squamous Epithelial Cell,Urine 1 /hpf (0-4); Urobilinogen,Urine <2.0 mg/dL (<2.0)
--- NOTE | 2019-03-28 11:20 | US ---
EXAMINATION TYPE: US transvaginal DATE OF EXAM: 03/28/2019 COMPARISON: CT, US 03/13/2017 CLINICAL HISTORY: Pelvic pressure and bleeding . TECHNIQUE: Transvaginal (TV). Date of LMP: Prolonged since mid February. EXAM MEASUREMENTS: Uterus: 7.8 x 4.1 x 5.1 cm Endometrial Stripe: 1.7 cm Right Ovary: 3.7 x 2.5 x 2.7 cm Left Ovary: Obscured by overlying bowel gas 1. Uterus: Anteverted wnl 2. Endometrium: heterogenous and thick 3. Right Ovary: 2.8 x 2.6 x 2.2 cyst 4. Left Ovary: Obscured by overlying bowel gas Spectral, color and waveform doppler imaging shows good arterial and venous flow within the right o vary; there is no evidence for ovarian torsion on right. 5. Bilateral Adnexa: wnl 6. Posterior cul-de-sac: wnl IMPRESSION: 1. Endometrium is abnormally thickened and heterogenous with internal central area of fluid. Ensure n egative beta-hCG. In the setting of positive beta hCG early intrauterine or ectopic pregnan cies would be considered. 2. 2.8 cm simple right ovarian cyst. No evidence of right ovarian torsion. Left ovary is obscured by bowel gas.
[2019-03-28 12:10] VITALS: BP 106/80; PULSE 72; TEMP 99.3
[2019-03-28 12:35] LABS: Prothrombin Time 10.8 sec (9.0-12.0)
== END 2019-03-28 13:04 | disposition home or self-care (01) ==
LOC: EC 09:25
DX: N93.8 Other specified abnormal uterine and vaginal bleeding (principal); N83.201 Unspecified ovarian cyst, right side; R11.0 Nausea; D64.9 Anemia, unspecified; Z87.891 Personal history of nicotine dependence; Z88.1 Allergy status to other antibiotic agents; Z88.6 Allergy status to analgesic agent; Z79.899 Other long term (current) drug therapy; Z98.51 Tubal ligation status; Z98.890 Other specified postprocedural states; Z80.49 Family history of malignant neoplasm of other genital organs
CPT/HCPCS: 36415; 80053; 83605; 85025; 85610; 85730; 81001; 81025; 87040; 93976; 76830; 99284; 96374; J2405

== ENCOUNTER 2019-06-25 12:41 | Emergency (ER) | payer BC ==
--- NOTE | 2019-06-25 13:15 | ED ---
General Adult HPI - General Chief complaint: Arrhythmia/Palpitations Stated complaint: chest pain Time Seen by Provider: 06/25/19 12:53 Source: patient Mode of arrival: wheelchair Limitations: no limitations - History of Present Illness Initial comments: The patient is a 43-year-old female with past medical history of asthma and seizure disorder presents to the emergency room in with reported chest pain and palpitations. She also reports to a left finger infection. The patient states that a week ago she sustained an abrasion to her left index finger. She has been attempting to treat the wound with bacitracin. States that today she was getting tired that the wound was still open and therefore placed skin glue over the site. She denies any purulent drainage from the site. No redness or swelling to the digit. Continues to have intact range of motion. She states that when she was manipulating her finger that she ended up having numbness and tingling in her hand which shot up to her neck. She denies any weakness in the upper extremity. Denies any neck pain or back pain. No fevers or chills. Denies any weakness in her left lower extremity. No confusions or speech difficulties. She began having chest heaviness and palpitations. She does have a history of anxiety was unsure if she was having a panic attack. She requested further evaluation and therefore came into the emergency department. She denies a history of DVT or PE. No lower extremity swelling. No ripping or tearing sensation to her back. No history of cardiac disease. Denies cough or hemoptysis. her for . There are no other alleviating,precipitating or modifying factors - Related Data Home Medications Medication Instructions Recorded Confirmed Ergocalciferol [Vitamin D2] 10,000 unit PO QID 12/23/17 12/30/17 Ferrous Sulfate [Feosol] 325 mg PO TID 12/23/17 12/30/17 Previous Rx's Medication Instructions Recorded Clindamycin HCl 300 mg PO Q6HR #20 cap 06/25/19 Allergies Allergy/AdvReac Type Severity Reaction Status Date / Time cephalexin monohydrate Allergy Rash/Hives Verified 06/25/19 12:49 [From Keflex] erythromycin base Allergy Rash/Hives Verified 06/25/19 12:49 [Erythromycin Base] metoclopramide HCl Allergy Rash/Hives Verified 06/25/19 12:49 [From Reglan] ibuprofen AdvReac Nausea & Verified 06/25/19 12:49 Vomiting Review of Systems ROS Statement: Those systems with pertinent positive or pertinent negative responses have been documented in the HPI. ROS Other: All systems not noted in ROS Statement are negative. Past Medical History Past Medical History: Asthma, Seizure Disorder Additional Past Medical History / Comment(s): colitis, asthma as a child, hx of ruptured gallbladder with + hepatitis c, anemia., Gastric Bypass (2011). States having vomiting, stomach pains and loose stools. History of Any Multi-Drug Resistant Organisms: None Reported Past Surgical History: Adenoidectomy, Bariatric Surgery, Cholecystectomy, Tonsillectomy, Tubal Ligation, Uterine Ablation Additional Past Surgical History / Comment(s): ovarian cyst removal, Gastric bypass (2011) D&C Past Anesthesia/Blood Transfusion Reactions: Motion Sickness, Postoperative Nausea & Vomiting (PONV) Additional Past Anesthesia/Blood Transfusion Reaction / Comment(s): HX OF BLOOD TRANSFUSION - NO REACTION Past Psychological History: Anxiety, Depression Smoking Status: Current every day smoker Past Alcohol Use History: None Reported Past Drug Use History: None Reported - Past Family History Mother Family Medical History: Cancer Additional Family Medical History / Comment(s): endometrial and breast cancer Father Family Medical History: Cancer Additional Family Medical History / Comment(s): esophageal cancer General Exam Limitations: no limitations General appearance: alert, in no apparent distress Head exam: Present: atraumatic, normocephalic, normal inspection Eye exam: Present: normal appearance, PERRL, EOMI. Absent: scleral icterus, conjunctival injection, periorbital swelling ENT exam: Present: normal exam, mucous membranes moist Neck exam: Present: normal inspection. Absent: tenderness, meningismus, lymphadenopathy Respiratory exam: Present: normal lung sounds bilaterally. Absent: respiratory distress, wheezes, rales, rhonchi, stridor Cardiovascular Exam: Present: regular rate, normal rhythm, normal heart sounds. Absent: systolic murmur, diastolic murmur, rubs, gallop, clicks GI/Abdominal exam: Present: soft, normal bowel sounds. Absent: distended, te nderness, guarding, rebound, rigid Extremities exam: Present: normal inspection, full ROM, normal capillary refill, other (5/5 strength in the bilateral upper extremities. Intact 2 point and soft touch in the median, radial and ulnar nerve distributions in the bilateral upper extremities). Absent: tenderness, pedal edema, joint swelling, calf tenderness Back exam: Present: normal inspection Neurological exam: Present: alert, oriented X3, CN II-XII intact Psychiatric exam: Present: normal affect, normal mood Skin exam: Present: warm, dry, intact, normal color. Absent: rash Course Vital Signs 06/25/19 06/25/19 06/25/19 12:45 13:21 13:45 Temperature 98.5 F Pulse Rate 114 H 70 Pulse Rate [ 98 Dental Laboratory Supervisor ] Respiratory 18 Rate Blood Pressure 115/69 O2 Sat by Pulse 100 Oximetry 06/25/19 15:39 Temperature 97.8 F Pulse Rate 74 Pulse Rate [ Dental Laboratory Supervisor ] Respiratory 16 Rate Blood Pressure 107/64 O2 Sat by Pulse 98 Oximetry EKG Findings - EKG Comments: EKG Findings:: EKG demonstrates a normal sinus rhythm with a ventricular rate of 96. NV interval 136. QRS 78. QTC of 442. No acute ST segment elevations or depressions concerning for ischemic changes. Medical Decision Making - Medical Decision Making Upon arrival the patient was placed in room 3. A thorough history and physical exam was performed. As the patient is reporting chest pain with left upper extremity numbness I did recommend a cardiac evaluation for which the patient did agree. Laboratory studies are conducted which are unremarkable. Chest x- ray demonstrates no acute findings. EKG is unremarkable. Reevaluated the patient and her numbness has improved. No appreciable weakness on physical exam. I discussed diagnosis, differential and treatment options. At this time the patient will be discharged home. She is to follow-up with primary care physician for further outpatient testing. I will give her a prescription for Keflex for her left index finger cellulitis. If the patient has any new or worsening symptoms she should return to the her. The patient is discharged home in stable condition - Lab Data Result diagrams: 06/25/19 13:37 06/25/19 13:37 Lab Results 06/25/19 06/25/19 06/25/19 Range/Units 13:37 13:37 13:37 WBC 5.3 (3.8-10.6) k/uL RBC 4.10 (3.80-5.40) m/uL Hgb 12.4 (11.4-16.0) gm/dL Hct 39.7 (34.0-46.0) % MCV 96.8 (80.0-100.0) fL MCH 30.1 (25.0-35.0) pg MCHC 31.1 (31.0-37.0) g/dL RDW 13.8 (11.5-15.5) % Plt Count 226 (150-450) k/uL Neutrophils % 53 % Lymphocytes % 31 % Monocytes % 5 % Eosinophils % 8 % Basophils % 1 % Neutrophils # 2.9 (1.3-7.7) k/uL Lymphocytes # 1.6 (1.0-4.8) k/uL Monocytes # 0.3 (0-1.0) k/uL Eosinophils # 0.5 (0-0.7) k/uL Basophils # 0.1 (0-0.2) k/uL Sodium 139 (137-145) mmol/L Potassium 4.4 (3.5-5.1) mmol/L Chloride 106 (98-107) mmol/L Carbon Dioxide 30 (22-30) mmol/L Anion Gap 3 mmol/L BUN 16 (7-17) mg/dL Creatinine 0.65 (0.52-1.04) mg/dL Est GFR (CKD-EPI)AfAm >90 (>60 ml/min/1.73 sqM) Est GFR (CKD-EPI)NonAf >90 (>60 ml/min/1.73 sqM) Glucose 82 (74-99) mg/dL Calcium 9.0 (8.4-10.2) mg/dL Magnesium 2.1 (1.6-2.3) mg/dL Total Bilirubin 0.4 (0.2-1.3) mg/dL AST 26 (14-36) U/L ALT 17 (4-34) U/L Alkaline Phosphatase 56 (38-126) U/L Troponin I <0.012 (0.000-0.034) ng/mL Total Protein 7.2 (6.3-8.2) g/dL Albumin 4.1 (3.5-5.0) g/dL TSH 1.040 (0.465-4.680) mIU/L HCG, Qual 06/25/19 Range/Units 13:37 WBC (3.8-10.6) k/uL RBC (3.80-5.40) m/uL Hgb (11.4-16.0) gm/dL Hct (34.0-46.0) % MCV (80.0-100.0) fL MCH (25.0-35.0) pg MCHC (31.0-37.0) g/dL RDW (11.5-15.5) % Plt Count (150-450) k/uL Neutrophils % % Lymphocytes % % Monocytes % % Eosinophils % % Basophils % % Neutrophils # (1.3-7.7) k/uL Lymphocytes # (1.0-4.8) k/uL Monocytes # (0-1.0) k/uL Eosinophils # (0-0.7) k/uL Basophils # (0-0.2) k/uL Sodium (137-145) mmol/L Potassium (3.5-5.1) mmol/L Chloride (98-107) mmol/L Carbon Dioxide (22-30) mmol/L Anion Gap mmol/L BUN (7-17) mg/dL Creatinine (0.52-1.04) mg/dL Est GFR (CKD-EPI)AfAm (>60 ml/min/1.73 sqM) Est GFR (CKD-EPI)NonAf (>60 ml/min/1.73 sqM) Glucose (74-99) mg/dL Calcium (8.4-10.2) mg/dL Magnesium (1.6-2.3) mg/dL Total Bilirubin (0.2-1.3) mg/dL AST (14-36) U/L ALT (4-34) U/L Alkaline Phosphatase (38-126) U/L Troponin I (0.000-0.034) ng/mL Total Protein (6.3-8.2) g/dL Albumin (3.5-5.0) g/dL TSH (0.465-4.680) mIU/L HCG, Qual Not Detected Disposition Clinical Impression: Cellulitis, finger, Chest pain Disposition: HOME SELF-CARE Condition: Stable Instructions (If sedation given, give patient instructions): Cellulitis (ED) Additional Instructions: Please follow-up with your primary care doctor in 2 to 4 days. Recommend Holter monitoring and echo of your heart. Return to the emergency room for any new or worsening symptoms Prescriptions: Clindamycin HCl 300 mg PO Q6HR #20 cap Is patient prescribed a controlled substance at d/c from ED?: No Referrals: Dominic Funes MD [Primary Care Provider] - 1-2 days Time of Disposition: 15:21
--- NOTE | 2019-06-25 13:37 | XR ---
EXAMINATION TYPE: XR chest 2V DATE OF EXAM: 06/25/2019 HISTORY: dysrhythmia. REFERENCE: Previous study dated 06/12/2016. FINDINGS: The lungs are clear. Pleural space are clear. The heart is not enlarged. IMPRESSION: NORMAL CHEST.
[2019-06-25 13:46] LABS: Basophils # (A) 0.1 k/uL (0-0.2); Basophils % (A) 1 %; Eosinophils # (A) 0.5 k/uL (0-0.7); Eosinophils % (A) 8 %; HCT 39.7 % (34.0-46.0); HGB 12.4 gm/dL (11.4-16.0); Lymphocytes # (A) 1.6 k/uL (1.0-4.8); Lymphocytes % (A) 31 %; MCH 30.1 pg (25.0-35.0); MCHC 31.1 g/dL (31.0-37.0); MCV 96.8 fL (80.0-100.0); Mean Platelet Volume 9.1; Monocytes # (A) 0.3 k/uL (0-1.0); Monocytes % (A) 5 %; Neutrophils # (A) 2.9 k/uL (1.3-7.7); Neutrophils % (A) 53 %; Platelet Count 226 k/uL (150-450); RDW 13.8 % (11.5-15.5); WBC 5.3 k/uL (3.8-10.6)
[2019-06-25 14:00] LABS: Potassium 4.4 mmol/L (3.5-5.1)
[2019-06-25 14:01] LABS: ALT 17 U/L (4-34); AST 26 U/L (14-36); African American GFR (CKD) >90 (>60 ml/min/1.73 sqM); Albumin 4.1 g/dL (3.5-5.0); Alkaline Phosphatase 56 U/L (38-126); Anion Gap 3 mmol/L; Blood Urea Nitrogen 16 mg/dL (7-17); Carbon Dioxide 30 mmol/L (22-30); Chloride 106 mmol/L (98-107); Glucose 82 mg/dL (74-99); Magnesium 2.1 mg/dL (1.6-2.3); Non-African American GFR(CKD) >90 (>60 ml/min/1.73 sqM); Sodium 139 mmol/L (137-145); Total Bilirubin 0.4 mg/dL (0.2-1.3); Total Protein 7.2 g/dL (6.3-8.2)
[2019-06-25] MEDS ORDERED: CLINDAMYCIN 150 MG CAP PO STA (15:14)
[2019-06-25 15:39] VITALS: BP 107/64; PULSE 74; RESP 16; TEMP 97.8
== END 2019-06-25 15:40 | disposition home or self-care (01) ==
LOC: EC 12:41
DX: L03.012 Cellulitis of left finger (principal); R07.9 Chest pain, unspecified; R00.2 Palpitations; R20.0 Anesthesia of skin; F41.9 Anxiety disorder, unspecified; R20.2 Paresthesia of skin; D64.9 Anemia, unspecified; F17.200 Nicotine dependence, unspecified, uncomplicated; Z79.899 Other long term (current) drug therapy; Z88.1 Allergy status to other antibiotic agents; Z88.8 Allergy status to other drugs, medicaments and biological substances; Z88.6 Allergy status to analgesic agent; Z98.84 Bariatric surgery status
CPT/HCPCS: 36415; 71046; 80053; 83735; 84443; 84484; 84703; 85025; 93005; 99285

== ENCOUNTER 2019-10-06 10:50 | Emergency (ER) | payer BC ==
--- NOTE | 2019-10-06 11:31 | ED ---
Headache HPI - General Mode of arrival: ambulatory Limitations: no limitations <Jen Kat - Last Filed: 10/06/19 14:24> <Noemi Zhangah Laurie - Last Filed: 10/09/19 23:49> - General Chief Complaint: Headache Stated Complaint: low hemoglobin/headache Time Seen by Provider: 10/06/19 11:20 - History of Present Illness Initial Comments: 44-year-old female presenting for low iron and headache. Patient states that she presented to her primary care office for her headache it's been ongoing for 3 day she states occur during the night and was sharp in nature. Patient denies any radiation of the pain denies a visual changes she states she has had some nausea and vomiting and felt like she has had an upset stomach. Patient states she has also had diarrhea. Patient states that she has felt this way before when she has had low iron. Patient states she has had multiple infusions of iron in the past. Patient denies weakness of the UE or LE, denies this being the worst headache of her life or sudden onset, woke up with it. Patient denies fevers, neck stiffness. Denies dizziness or unsteady gait. Denies history of Polycystic kidney disease or brain aneursym. Patient was sent to the ER today for headache evaluation. Patient appears well on arrival, no acute distress. (Jen Kat) - Related Data Home Medications Medication Instructions Recorded Confirmed Ergocalciferol [Vitamin D2] 10,000 unit PO QID 12/23/17 12/30/17 Ferrous Sulfate [Feosol] 325 mg PO TID 12/23/17 12/30/17 Previous Rx's Medication Instructions Recorded Clindamycin HCl 300 mg PO Q6HR #20 cap 06/25/19 Penicillin V Potassium [Pen Vee K] 500 mg PO QID 7 Days #28 tablet 08/14/19 Allergies Allergy/AdvReac Type Severity Reaction Status Date / Time cephalexin monohydrate Allergy Rash/Hives Verified 06/25/19 12:49 [From Keflex] erythromycin base Allergy Rash/Hives Verified 06/25/19 12:49 [Erythromycin Base] metoclopramide HCl Allergy Rash/Hives Verified 06/25/19 12:49 [From Reglan] ibuprofen AdvReac Nausea & Verified 06/25/19 12:49 Vomiting Review of Systems ROS Other: All systems not noted in ROS Statement are negative. <Jen Kat - Last Filed: 10/06/19 14:24> ROS Other: All systems not noted in ROS Statement are negative. <Lucero Zhang - Last Filed: 10/09/19 23:49> ROS Statement: Those systems with pertinent positive or pertinent negative responses have been documented in the HPI. Past Medical History Past Medical History: Asthma, Seizure Disorder Additional Past Medical History / Comment(s): colitis, asthma as a child, hx of ruptured gallbladder with + hepatitis c, anemia., Gastric Bypass (2011). States having vomiting, stomach pains and loose stools. History of Any Multi-Drug Resistant Organisms: None Reported Past Surgical History: Adenoidectomy, Bariatric Surgery, Cholecystectomy, Tonsillectomy, Tubal Ligation, Uterine Ablation Additional Past Surgical History / Comment(s): ovarian cyst removal, Gastric bypass (2011) D&C Past Anesthesia/Blood Transfusion Reactions: Motion Sickness, Postoperative Nausea & Vomiting (PONV) Additional Past Anesthesia/Blood Transfusion Reaction / Comment(s): HX OF BLOOD TRANSFUSION - NO REACTION Past Psychological History: Anxiety, Depression Smoking Status: Former smoker Past Alcohol Use History: None Reported Past Drug Use History: None Reported - Past Family History Mother Family Medical History: Cancer Additional Family Medical History / Comment(s): endometrial and breast cancer Father Family Medical History: Cancer Additional Family Medical History / Comment(s): esophageal cancer <Jen Kat - Last Filed: 10/06/19 14:24> General Exam Limitations: no limitations <Jen Kat - Last Filed: 10/06/19 14:24> - General Exam Comments Initial Comments: General: The patient is awake and alert, in no distress Eye: +3 mm pupils are equal, round and reactive to light, extra-ocular movements are intact. No nystagmus. There is normal conjunctiva bilaterally. No signs of icterus. Ears, nose, mouth and throat: There are moist mucous membranes and no oral lesions. Neck: The neck is supple, there is no tenderness or JVD. Cardiovascular: There is a regular rate and rhythm. No murmur, rub or gallop is appreciated. Respiratory: Lungs are clear to auscultation, respirations are non-labored, breath sounds are equal. No wheezes, stridor, rales, or rhonchi. Gastrointestinal: Soft, non-distended, non-tender abdomen without masses or organomegaly noted. There is no rebound or guarding present. Musculoskeletal: Normal ROM, no tenderness. Strength 5/5. Sensation intact. Pulses equal bilaterally 2+. Neurological: A&O x 3. CN II-XII intact,memory intact to immediately, intermediate and group home recall. Able to follow simple verbal. Able to name a common object (pen). High quality, labial (pa) and lingual (la) spLight touch and temperature sensation present over the face, chest, abdomen, back, UE bony aterally, and LE bilaterally. Able to localize point during point localization b/l and extinction. No visible bulk atrophy, hypertrophy, fasciculations, or myoclonus of the UE or LE b/l. Full PROM in UE and LE b/l. Bilateral muscle strength 5/5 for the following muscles: deltoid, biceps, triceps, br achioradialis, wrist extensors/flexor, hip flexor, hip abductors/adductors, hamstrings, quadriceps, feet dorsiflexors/plantar flexors. Finger to nose, finger to the examiners finger, and heel to smith coordinated and accurate b/l. (-) Romberg. (-) pronator drift. No nuchal rigidity. Skin: Skin is warm and dry and no rashes or lesions are noted. Psychiatric: Cooperative, appropriate mood & affect, normal judgment. (Jen Kat) Course Vital Signs 10/06/19 10/06/19 10/06/19 11:14 11:57 13:46 Temperature 98.0 F 97.6 F Pulse Rate 85 72 72 Respiratory 20 18 14 Rate Blood Pressure 109/77 103/72 100/54 O2 Sat by Pulse 99 100 100 Oximetry Medical Decision Making - Lab Data Result diagrams: 10/06/19 11:41 10/06/19 11:41 <Jen Kat - Last Filed: 10/06/19 14:24> - Lab Data Result diagrams: 10/06/19 11:41 10/06/19 11:41 <Lucero Zhang - Last Filed: 10/09/19 23:49> - Medical Decision Making 44-year-old female presenting today for chief complaint of headache. Patient no focal neurological deficits denies worse headache of her life. It was alleviated in the emergency department. Patient CT without contrast no acute abnormalities and was obtained secondary to patient stating that the headache occurred at night. Patient nausea resolved. Patient abdominal exam benign. Chart reviewed patient had low iron at 33, Hgb stable history of chronically low iron with previous infusions. Patient will be discharged given NIEVES subsided, CT (-), no focal deficits. Patient was instructed to have strict return parameters and f/u with PCP in 1-2 days. Patient is agreeable to this care plan. requesting work note. Discharged appearing well after discussing the case with Dr. Zhang. (Jen Kat) I was available for consultation in the emergency department. The history and physical exam were done by the midlevel provider. I was consulted for this patients care. I reviewed the case with the midlevel provider and based on their presentation of the patient, I agree with the assessment, medical decision making and plan of care as documented. Chart was dictated using TXCOM dictation software. Attempts were made to correct any dictation errors however some typographical errors may persist. Patient was seen during a national state of emergency due to the Covid-19 pandemic. (Lucero Zhang) - Lab Data Lab Results 10/06/19 10/06/19 Range/Units 11:41 11:41 WBC 4.9 (3.8-10.6) k/uL RBC 4.04 (3.80-5.40) m/uL Hgb 12.1 (11.4-16.0) gm/dL Hct 38.9 (34.0-46.0) % MCV 96.4 (80.0-100.0) fL MCH 30.1 (25.0-35.0) pg MCHC 31.2 (31.0-37.0) g/dL RDW 14.9 (11.5-15.5) % Plt Count 200 (150-450) k/uL Neutrophils % 61 % Lymphocytes % 24 % Monocytes % 5 % Eosinophils % 8 % Basophils % 0 % Neutrophils # 3.0 (1.3-7.7) k/uL Lymphocytes # 1.2 (1.0-4.8) k/uL Monocytes # 0.2 (0-1.0) k/uL Eosinophils # 0.4 (0-0.7) k/uL Basophils # 0.0 (0-0.2) k/uL Hypochromasia Slight Sodium 139 (137-145) mmol/L Potassium 4.5 (3.5-5.1) mmol/L Chloride 105 (98-107) mmol/L Carbon Dioxide 28 (22-30) mmol/L Anion Gap 6 mmol/L BUN 12 (7-17) mg/dL Creatinine 0.66 (0.52-1.04) mg/dL Est GFR (CKD-EPI)AfAm >90 (>60 ml/min/1.73 sqM) Est GFR (CKD-EPI)NonAf >90 (>60 ml/min/1.73 sqM) Glucose 87 (74-99) mg/dL Calcium 8.9 (8.4-10.2) mg/dL Total Bilirubin 0.2 (0.2-1.3) mg/dL AST 28 (14-36) U/L ALT 18 (4-34) U/L Alkaline Phosphatase 58 (38-126) U/L Total Protein 7.0 (6.3-8.2) g/dL Albumin 3.9 (3.5-5.0) g/dL Lipase 371 H (23-300) U/L Disposition Is patient prescribed a controlled substance at d/c from ED?: No Time of Disposition: 13:34 <Jen Kat - Last Filed: 10/06/19 14:24> <Lucero Zhang A - Last Filed: 10/09/19 23:49> Clinical Impression: Low iron, Headache Disposition: HOME SELF-CARE Condition: Good Instructions (If sedation given, give patient instructions): Iron Rich Diet (ED), Iron Deficiency Anemia (ED), Acute Headache (ED) Additional Instructions: Please use medication as discussed. Please follow-up with family doctor in the next 2 days, recommend outpatient iron infusion as seen fit by PCP. Please return to emergency room if the symptoms increase or worsen or for any other concerns. Referrals: Dominic Funes MD [Primary Care Provider] - 1-2 days
[2019-10-06] MEDS ORDERED: ONDANSETRON 4 MG/2 ML VIAL IVP STA (11:32)
[2019-10-06] MEDS ORDERED: diphenhydrAMINE 50 MG/ML 1 ML VIAL IVP STA (11:32)
[2019-10-06] MEDS ORDERED: HYDROmorphone 0.5 MG/0.5 ML SYRINGE IVP STA (11:32)
[2019-10-06] MEDS ORDERED: SODIUM CHLORIDE 0.9% 500 ML 500 ML IV ONE (11:49)
[2019-10-06 11:51] LABS: Basophils % (A) 0 %; Eosinophils # (A) 0.4 k/uL (0-0.7); Eosinophils % (A) 8 %; HCT 38.9 % (34.0-46.0); HGB 12.1 gm/dL (11.4-16.0); Hypochromasia Slight; Lymphocytes # (A) 1.2 k/uL (1.0-4.8); Lymphocytes % (A) 24 %; MCH 30.1 pg (25.0-35.0); MCHC 31.2 g/dL (31.0-37.0); MCV 96.4 fL (80.0-100.0); Mean Platelet Volume 9.2; Monocytes # (A) 0.2 k/uL (0-1.0); Monocytes % (A) 5 %; Neutrophils % (A) 61 %; Platelet Count 200 k/uL (150-450); RBC 4.04 m/uL (3.80-5.40); RDW 14.9 % (11.5-15.5); WBC 4.9 k/uL (3.8-10.6)
[2019-10-06 11:58] VITALS: PULSE 72
[2019-10-06 12:02] LABS: ALT 18 U/L (4-34); AST 28 U/L (14-36); African American GFR (CKD) >90 (>60 ml/min/1.73 sqM); Albumin 3.9 g/dL (3.5-5.0); Alkaline Phosphatase 58 U/L (38-126); Anion Gap 6 mmol/L; Blood Urea Nitrogen 12 mg/dL (7-17); Calcium 8.9 mg/dL (8.4-10.2); Carbon Dioxide 28 mmol/L (22-30); Chloride 105 mmol/L (98-107); Glucose 87 mg/dL (74-99); Non-African American GFR(CKD) >90 (>60 ml/min/1.73 sqM); Potassium 4.5 mmol/L (3.5-5.1); Sodium 139 mmol/L (137-145); Total Bilirubin 0.2 mg/dL (0.2-1.3)
--- NOTE | 2019-10-06 12:23 | CT ---
EXAMINATION TYPE: CT brain wo con DATE OF EXAM: 10/06/2019 COMPARISON: None INDICATION: Headaches, acute, normal neuro exam. DLP: 1054.4 mGycm, Automated exposure control for dose reduction was used. CONTRAST: None CT of the brain is performed utilizing 3 mm thick sections through the posterior fossa and 3 mm thick sections through the remaining calvarium. Study is performed within 24 hours of arrival to the hosp [facility]. No abnormal hyperdensity is present to suggest an acute intracranial hemorrhage. No mass lesion is evident. No acute infarcts are evident. Ventricles and sulci are appropriate for the patient age. Paranasal sinuses and mastoid air cells within the [id number] are clear. IMPRESSIONS: 1. Normal CT Brain
[2019-10-06 13:50] VITALS: BP 100/54; RESP 14; TEMP 97.6
== END 2019-10-06 13:53 | disposition home or self-care (01) ==
LOC: EC 10:50
DX: D64.9 Anemia, unspecified (principal); R51 Headache; Z88.1 Allergy status to other antibiotic agents; Z88.6 Allergy status to analgesic agent; Z88.8 Allergy status to other drugs, medicaments and biological substances; Z87.891 Personal history of nicotine dependence; Z98.84 Bariatric surgery status
CPT/HCPCS: 36415; 80053; 83690; 85025; 70450; 99284; 96374; 96375 ×2; J1200; J2405; J1170

== ENCOUNTER 2019-11-29 10:34 | Emergency (ER) | payer BC ==
[2019-11-29] MEDS ORDERED: SODIUM CHLORIDE 0.9% 1,000 ML IV STA (11:14)
[2019-11-29] MEDS ORDERED: ONDANSETRON 4 MG/2 ML VIAL IVP STA (11:14)
[2019-11-29] MEDS ORDERED: MORPHINE SULFATE 4 MG/ML SYRINGE IVP STA (11:16)
--- NOTE | 2019-11-29 11:39 | ED ---
General Adult HPI - General Chief complaint: Abdominal Pain Stated complaint: Right sided flank pain, vomiting Time Seen by Provider: 11/29/19 10:39 Source: patient, RN notes reviewed Mode of arrival: ambulatory Limitations: no limitations - History of Present Illness Initial comments: 44-year-old female with a past medical history of asthma, colitis, gastric bypass in 2011 presents to the emergency department for right lower quadrant pain. Patient states she had some diarrhea yesterday. Patient states this started around 2:30 AM this morning. Patient does have a history of cysts on the right ovary for which she has had several surgeries. Patient denies nausea or vomiting. Denies fevers or chills.Patient has no other complaints at this time including shortness of breath, chest pain, abdominal pain, nausea or vomiting, headache, or visual changes. - Related Data Home Medications Medication Instructions Recorded Confirmed Ferrous Sulfate [Feosol] 325 mg PO TID 12/23/17 11/29/19 PARoxetine HCL [Paxil] 30 mg PO DAILY 11/29/19 11/29/19 buPROPion HCL [buPROPion HCL SR] 150 mg PO BID 11/29/19 11/29/19 busPIRone HCL 10 mg PO TID PRN 11/29/19 11/29/19 Allergies Allergy/AdvReac Type Severity Reaction Status Date / Time cephalexin monohydrate Allergy Rash/Hives Verified 11/29/19 11:43 [From Keflex] erythromycin base Allergy Rash/Hives Verified 11/29/19 11:43 [Erythromycin Base] metoclopramide HCl Allergy Rash/Hives Verified 11/29/19 11:43 [From Reglan] ibuprofen AdvReac Nausea & Verified 11/29/19 11:43 Vomiting trazodone AdvReac night Verified 11/29/19 11:43 terrhood Review of Systems ROS Statement: Those systems with pertinent positive or pertinent negative responses have been documented in the HPI. ROS Other: All systems not noted in ROS Statement are negative. Past Medical History Past Medical History: Asthma, Seizure Disorder Additional Past Medical History / Comment(s): colitis, asthma as a child, hx of ruptured gallbladder with + hepatitis c, anemia., Gastric Bypass (2011). States having vomiting, stomach pains and loose stools. History of Any Multi-Drug Resistant Organisms: None Reported Past Surgical History: Adenoidectomy, Bariatric Surgery, Cholecystectomy, Tonsillectomy, Tubal Ligation, Uterine Ablation Additional Past Surgical History / Comment(s): ovarian cyst removal, Gastric b ypass (2012) D&C Past Anesthesia/Blood Transfusion Reactions: Motion Sickness, Postoperative Nausea & Vomiting (PONV) Additional Past Anesthesia/Blood Transfusion Reaction / Comment(s): HX OF BLOOD TRANSFUSION - NO REACTION Past Psychological History: Anxiety, Depression Smoking Status: Never smoker Past Alcohol Use History: None Reported Past Drug Use History: None Reported - Past Family History Mother Family Medical History: Cancer Additional Family Medical History / Comment(s): endometrial and breast cancer Father Family Medical History: Cancer Additional Family Medical History / Comment(s): esophageal cancer General Exam Limitations: no limitations General appearance: alert, in no apparent distress Head exam: Present: atraumatic, normocephalic, normal inspection Eye exam: Present: normal appearance, PERRL, EOMI. Absent: scleral icterus, conjunctival injection, periorbital swelling ENT exam: Present: normal exam, mucous membranes moist Respiratory exam: Present: normal lung sounds bilaterally. Absent: respiratory distress, wheezes, rales, rhonchi, stridor Cardiovascular Exam: Present: regular rate, normal rhythm, normal heart sounds. Absent: systolic murmur, diastolic murmur, rubs, gallop, clicks GI/Abdominal exam: Present: soft, tenderness (Tenderness right lower quadrant), normal bowel sounds. Absent: distended, guarding, rebound, rigid Neurological exam: Present: alert Course Vital Signs 11/29/19 11/29/19 11/29/19 10:35 10:53 12:21 Temperature 98.9 F Pulse Rate 90 80 78 Respiratory 18 18 22 Rate Blood Pressure 107/67 101/64 117/73 O2 Sat by Pulse 99 96 97 Oximetry Medical Decision Making - Medical Decision Making Vitals are stable. CBC and CMP are unremarkable. Urinalysis is negative. HCG is not detected. CT abdomen and pelvis shows postop changes of cholecystectomy. Patient also has a right ovarian cyst measuring 2.7 cm. Patient will follow-up with Dr. Mark her [employer]. - Lab Data Result diagrams: 11/29/19 11:26 11/29/19 11:26 Lab Results 11/29/19 11/29/19 11/29/19 Range/Units 11:26 11:26 11:26 WBC 4.7 (3.8-10.6) k/uL RBC 4.13 (3.80-5.40) m/uL Hgb 12.4 (11.4-16.0) gm/dL Hct 39.3 (34.0-46.0) % MCV 95.2 (80.0-100.0) fL MCH 29.9 (25.0-35.0) pg MCHC 31.4 (31.0-37.0) g/dL RDW 16.1 H (11.5-15.5) % Plt Count 225 (150-450) k/uL Neutrophils % 44 % Lymphocytes % 39 % Monocytes % 6 % Eosinophils % 7 % Basophils % 1 % Neutrophils # 2.0 (1.3-7.7) k/uL Lymphocytes # 1.8 (1.0-4.8) k/uL Monocytes # 0.3 (0-1.0) k/uL Eosinophils # 0.3 (0-0.7) k/uL Basophils # 0.0 (0-0.2) k/uL Anisocytosis Slight Sodium 136 L (137-145) mmol/L Potassium 4.7 (3.5-5.1) mmol/L Chloride 104 (98-107) mmol/L Carbon Dioxide 27 (22-30) mmol/L Anion Gap 5 mmol/L BUN 13 (7-17) mg/dL Creatinine 0.65 (0.52-1.04) mg/dL Est GFR (CKD-EPI)AfAm >90 (>60 ml/min/1.73 sqM) Est GFR (CKD-EPI)NonAf >90 (>60 ml/min/1.73 sqM) Glucose 78 (74-99) mg/dL Calcium 8.9 (8.4-10.2) mg/dL Total Bilirubin 0.4 (0.2-1.3) mg/dL AST 32 (14-36) U/L ALT 22 (4-34) U/L Alkaline Phosphatase 55 (38-126) U/L Total Protein 6.8 (6.3-8.2) g/dL Albumin 4.0 (3.5-5.0) g/dL Amylase 57 (30-110) U/L Lipase 124 (23-300) U/L Urine Color Colorless Urine Appearance Clear (Clear) Urine pH 6.5 (5.0-8.0) Ur Specific [place] 1.002 (1.001-1.035) Urine Protein Negative (Negative) Urine Glucose (UA) Negative (Negative) Urine Ketones Negative (Negative) Urine Blood Negative (Negative) Urine Nitrite Negative (Negative) Urine Bilirubin Negative (Negative) Urine Urobilinogen <2.0 (<2.0) mg/dL Ur Leukocyte Esterase Negative (Negative) Urine HCG, Qual (Not Detectd) 11/29/19 Range/Units 11:26 WBC (3.8-10.6) k/uL RBC (3.80-5.40) m/uL Hgb (11.4-16.0) gm/dL Hct (34.0-46.0) % MCV (80.0-100.0) fL MCH (25.0-35.0) pg MCHC (31.0-37.0) g/dL RDW (11.5-15.5) % Plt Count (150-450) k/uL Neutrophils % % Lymphocytes % % Monocytes % % Eosinophils % % Basophils % % Neutrophils # (1.3-7.7) k/uL Lymphocytes # (1.0-4.8) k/uL Monocytes # (0-1.0) k/uL Eosinophils # (0-0.7) k/uL Basophils # (0-0.2) k/uL Anisocytosis Sodium (137-145) mmol/L Potassium (3.5-5.1) mmol/L Chloride (98-107) mmol/L Carbon Dioxide (22-30) mmol/L Anion Gap mmol/L BUN (7-17) mg/dL Creatinine (0.52-1.04) mg/dL Est GFR (CKD-EPI)AfAm (>60 ml/min/1.73 sqM) Est GFR (CKD-EPI)NonAf (>60 ml/min/1.73 sqM) Glucose (74-99) mg/dL Calcium (8.4-10.2) mg/dL Total Bilirubin (0.2-1.3) mg/dL AST (14-36) U/L ALT (4-34) U/L Alkaline Phosphatase (38-126) U/L Total Protein (6.3-8.2) g/dL Albumin (3.5-5.0) g/dL Amylase (30-110) U/L Lipase (23-300) U/L Urine Color Urine Appearance (Clear) Urine pH (5.0-8.0) Ur Specific [place] (1.001-1.035) Urine Protein (Negative) Urine Glucose (UA) (Negative) Urine Ketones (Negative) Urine Blood (Negative) Urine Nitrite (Negative) Urine Bilirubin (Negative) Urine Urobilinogen (<2.0) mg/dL Ur Leukocyte Esterase (Negative) Urine HCG, Qual Not Detected (Not Detectd) Disposition Clinical Impression: Ovarian cyst Disposition: HOME SELF-CARE Condition: Good Instructions (If sedation given, give patient instructions): Ovarian Cyst (ED) Additional Instructions: Please follow up with your primary care doctor or OBGYN in one to 2 days. Please return here to the emergency room for any worsening symptoms. Is patient prescribed a controlled substance at d/c from ED?: No Referrals: Dominic Funes MD [Primary Care Provider] - 1-2 days Jae Mark DO [REFERRING] - 1-2 days Time of Disposition: 14:14
[2019-11-29 11:40] LABS: Anisocytosis Slight; Appearance,Urine Clear (Clear); Basophils % (A) 1 %; Bilirubin,Urine Negative (Negative); Blood,Urine Negative (Negative); Color,Urine Colorless; Eosinophils # (A) 0.3 k/uL (0-0.7); Eosinophils % (A) 7 %; Glucose,Urine (UA) Negative (Negative); HCT 39.3 % (34.0-46.0); HGB 12.4 gm/dL (11.4-16.0); Ketones,Urine Negative (Negative); Leukocyte Esterase,Urine Negative (Negative); Lymphocytes # (A) 1.8 k/uL (1.0-4.8); Lymphocytes % (A) 39 %; MCH 29.9 pg (25.0-35.0); MCHC 31.4 g/dL (31.0-37.0); MCV 95.2 fL (80.0-100.0); Monocytes # (A) 0.3 k/uL (0-1.0); Monocytes % (A) 6 %; Neutrophils % (A) 44 %; Nitrite,Urine Negative (Negative); PH, Urine 6.5 (5.0-8.0); Platelet Count 225 k/uL (150-450); Protein,Urine Negative (Negative); RBC 4.13 m/uL (3.80-5.40); RDW 16.1 % (11.5-15.5); Specific Gravity,Urine 1.002 (1.001-1.035); Urobilinogen,Urine <2.0 mg/dL (<2.0); WBC 4.7 k/uL (3.8-10.6)
[2019-11-29 11:48] LABS: ALT 22 U/L (4-34); African American GFR (CKD) >90 (>60 ml/min/1.73 sqM); Amylase 57 U/L (30-110); Anion Gap 5 mmol/L; Blood Urea Nitrogen 13 mg/dL (7-17); Calcium 8.9 mg/dL (8.4-10.2); Carbon Dioxide 27 mmol/L (22-30); Chloride 104 mmol/L (98-107); Glucose 78 mg/dL (74-99); Lipase 124 U/L (23-300); Non-African American GFR(CKD) >90 (>60 ml/min/1.73 sqM); Sodium 136 mmol/L (137-145); Total Bilirubin 0.4 mg/dL (0.2-1.3); Total Protein 6.8 g/dL (6.3-8.2)
[2019-11-29 12:01] LABS: AST 32 U/L (14-36); Alkaline Phosphatase 55 U/L (38-126); Potassium 4.7 mmol/L (3.5-5.1)
[2019-11-29] MEDS ORDERED: HYDROmorphone 0.5 MG/0.5 ML SYRINGE IVP STA (12:18)
--- NOTE | 2019-11-29 12:54 | CT ---
EXAMINATION TYPE: CT abdomen pelvis w con DATE OF EXAM: 11/29/2019 COMPARISON: CT 12/15/2017 HISTORY: RLQ pain with nausea and vomiting. CT DLP: 794.3 mGycm Automated exposure control for dose reduction was used. TECHNIQUE: Helical acquisition of images from the lung bases through the pelvis have been completed. CONTRAST: Performed without Oral Contrast and with IV Contrast, patient injected with 100 mL of Isovue 300. FINDINGS: Gastric bypass surgery is stable. LUNG BASES: Mild dependent atelectatic changes are noted. AORTA: No significant abnormality is appreciated. LIVER/GB: Liver is enlarged. Cholecystectomy change is noted, there are prominent intra and extrahepa tic biliary ducts as on prior exam. PANCREAS: No significant abnormality is seen. SPLEEN: No significant abnormality is seen. ADRENALS: No significant abnormality is seen. KIDNEYS: No significant abnormality is seen. REPRODUCTIVE ORGANS: No significant abnormality is seen there is a clip present within the region of the cul-de-sac. Probable right ovarian cyst present measuring 2.7 cm BOWEL: Fluid-filled loops of small bowel present as well as within the colon. Appendix is not seen. FREE AIR: No Free Air visible. ASCITES: None visible. PELVIC ADENOPATHY: None visualized. RETROPERITONEAL ADENOPATHY: No Retroperitoneal Adenopathy visible. URINARY BLADDER: No significant abnormality is seen. OSSEOUS STRUCTURES: No significant abnormality is seen. IMPRESSION: POSTOP CHANGES. Correlate for enteritis.
[2019-11-29] MEDS ORDERED: KETOROLAC 30 MG/ML 1 ML VIAL IVP STA (13:07)
[2019-11-29] MEDS ORDERED: ACET/COD 300 MG/30 MG STARTER PACK 6 TAB BTL PO STA (14:21)
--- NOTE | 2019-11-29 14:28 | US ---
EXAMINATION TYPE: US transvaginal DATE OF EXAM: 11/29/2019 COMPARISON: Ultrasound 03/28/2019, CT 11/29/2019 CLINICAL HISTORY: RLQ. CT showed ovarian cyst. RLQ pain. Patient states being in menopause TECHNIQUE: Transvaginal (TV). Date of LMP: February 2019, EXAM MEASUREMENTS: Uterus: 5.6 x 3.9 x 3.3 cm Endometrial Stripe: 0.7 cm Right Ovary: 3.3 x 2.6 x 2.5 cm Left Ovary: 2.5 x 1.5 x 1.4 cm 1. Uterus: Anteverted Heterogenous 2. Endometrium: wnl 3. Right Ovary: Two cystic lesions seen, largest = 2.0 x 2.5 x 1.9 cm 4. Left Ovary: Hypoechoic lesion with peripheral vascular flow = 1.0 x 1.0 x 1.0 cm Grayscale, color Doppler, spectral Doppler imaging performed. Vascular waveform noted at the right ov larissa, left ovary 5. Bilateral Adnexa: wnl 6. Posterior cul-de-sac: no free fluid Waveform identified within the right ovary is arterial, venous waveform was not obtained. IMPRESSION: Right ovarian cystic foci are present. There has been interval development of a second cy st at this level compared to prior ultrasound
[2019-11-29 15:34] VITALS: BP 116/73; PULSE 77; RESP 16; TEMP 98.7
== END 2019-11-29 15:43 | disposition home or self-care (01) ==
LOC: EC 10:34
DX: N83.201 Unspecified ovarian cyst, right side (principal); Z88.1 Allergy status to other antibiotic agents; Z88.6 Allergy status to analgesic agent; Z88.8 Allergy status to other drugs, medicaments and biological substances; F41.9 Anxiety disorder, unspecified; F32.9 Major depressive disorder, single episode, unspecified; Z90.49 Acquired absence of other specified parts of digestive tract; Z79.899 Other long term (current) drug therapy; Z98.0 Intestinal bypass and anastomosis status; Z80.0 Family history of malignant neoplasm of digestive organs
CPT/HCPCS: 99284; 96374; 96375 ×3; 96361; 36415; 80053; 82150; 83690; 85025; 81003; 81025; 93975; 76830; 74177; J2270; J2405; J1885; J1170; Q9967

== ENCOUNTER 2020-02-07 20:19 | Emergency (ER) | payer BC ==
[2020-02-07 20:38] VITALS: TEMP 98
[2020-02-07] MEDS ORDERED: HYDROmorphone 1 MG/ML 1 ML SYRINGE IVP STA ×2 (21:38→22:35)
[2020-02-07] MEDS ORDERED: ONDANSETRON 4 MG/2 ML VIAL IVP STA (21:38)
[2020-02-07] MEDS ORDERED: SODIUM CHLORIDE 0.9% 1,000 ML IV STA (21:38)
[2020-02-07 21:58] LABS: Anisocytosis Slight; Basophils % (A) 1 %; Eosinophils # (A) 0.4 k/uL (0-0.7); Eosinophils % (A) 8 %; HCT 33.8 % (34.0-46.0); HGB 11.2 gm/dL (11.4-16.0); Lymphocytes # (A) 1.9 k/uL (1.0-4.8); Lymphocytes % (A) 36 %; MCH 31.6 pg (25.0-35.0); MCHC 33.1 g/dL (31.0-37.0); MCV 95.4 fL (80.0-100.0); Mean Platelet Volume 8.9; Monocytes # (A) 0.3 k/uL (0-1.0); Monocytes % (A) 6 %; Neutrophils # (A) 2.6 k/uL (1.3-7.7); Neutrophils % (A) 48 %; Platelet Count 218 k/uL (150-450); RBC 3.55 m/uL (3.80-5.40); RDW 16.6 % (11.5-15.5); WBC 5.4 k/uL (3.8-10.6)
[2020-02-07 22:00] LABS: ALT 20 U/L (4-34); AST 44 U/L (14-36); African American GFR (CKD) >90 (>60 ml/min/1.73 sqM); Alkaline Phosphatase 51 U/L (38-126); Amylase 56 U/L (30-110); Anion Gap 4 mmol/L; Blood Urea Nitrogen 15 mg/dL (7-17); Calcium 8.5 mg/dL (8.4-10.2); Carbon Dioxide 26 mmol/L (22-30); Chloride 107 mmol/L (98-107); Glucose 81 mg/dL (74-99); Non-African American GFR(CKD) >90 (>60 ml/min/1.73 sqM); Potassium 5.3 mmol/L (3.5-5.1); Sodium 137 mmol/L (137-145); Total Bilirubin 0.8 mg/dL (0.2-1.3); Total Protein 6.9 g/dL (6.3-8.2)
[2020-02-07 22:54] LABS: Appearance,Urine Clear (Clear); Bilirubin,Urine Negative (Negative); Blood,Urine Negative (Negative); Color,Urine Light Yellow; Glucose,Urine (UA) Negative (Negative); Ketones,Urine Negative (Negative); Leukocyte Esterase,Urine Negative (Negative); Nitrite,Urine Negative (Negative); PH, Urine 5.5 (5.0-8.0); Protein,Urine Negative (Negative); Specific Gravity,Urine 1.008 (1.001-1.035); Urobilinogen,Urine <2.0 mg/dL (<2.0)
--- NOTE | 2020-02-07 23:44 | CT ---
EXAMINATION TYPE: CT abdomen pelvis w con DATE OF EXAM: 02/07/2020 COMPARISON: 11/29/2019 HISTORY: RLQ pain, hx of cholecystectomy CT DLP: 1012.8 mGycm Automated exposure control for dose reduction was used. CONTRAST: Performed with IV Contrast, patient injected with 100 mL of Isovue 300. Lung bases are clear. There is no pleural effusion. There is previous gastric bariatric surgery. Ther e is cholecystectomy. There is mild ectasia of the biliary tree. Common bile duct is 11 mm. Spleen is intact. There is no pancreatic mass. Liver shows no focal defect. There is no adrenal mass. Kidneys show satisfactory contrast opacification. There is no hydronephrosi s. Delayed images show normal renal excretion. There is no retroperitoneal adenopathy. Ureters are no t dilated. Bladder distends smoothly. There is no inguinal hernia. There is no mesenteric edema. There is no ascites or free air. There is no sign of bowel obstruction. There is no evidence of a pelvic mass. There is no free fluid in the pelvis. Appendix is not seen. Th ere is no sign of thickened appendix. Lumbar vertebra have normal alignment. Posterior elements are intact. Bony pelvis is intact. Hip join ts appear intact. IMPRESSION: Previous surgery. Mild ectasia of the biliary tree unchanged. No evidence of acute abdomen and pelvis . Appendix not seen. No sign of thickened appendix.
[2020-02-08] MEDS ORDERED: ONDANSETRON 4 MG ODT STARTER PACK 2 TAB BTL PO STA (00:20)
[2020-02-08] MEDS ORDERED: ACET/COD 300 MG/30 MG STARTER PACK 6 TAB BTL PO STA (00:20)
--- NOTE | 2020-02-08 00:21 | ED ---
Abdominal Pain HPI - General Chief Complaint: Abdominal Pain Stated Complaint: Abd Pain Time Seen by Provider: 02/07/20 20:55 Source: patient Mode of arrival: wheelchair Limitations: no limitations - History of Present Illness Initial Comments: 44-year-old female patient presents to the emergency department today for evaluation of right-sided abdominal pain and abdominal bloating. Patient states she has been having nausea and a few episodes of vomiting. States the symptoms have been present over the last 2 weeks. States that they significantly wor sened today and she was unable to get comfortable. Patient states that she has been having diminished appetite and unable to eat or drink. States her bowel movements have been alternating between constipation and diarrhea. She denies any hematochezia or melena. Denies any pale colored stools. Patient has had multiple abdominal surgeries including gastric bypass, cholecystectomy, and most recently in November 2019 a bilateral oophorectomy. Patient states that the ovaries were removed due to multiple inflammatory cysts. She denies any fever or chills. Patient denies any recent rash, cough, shortness of breath, chest pain, back pain, numbness, tingling, dizziness, weakness, hematuria, dysuria, urinary urgency, urinary frequency, headache, visual changes, or any other complaints. - Related Data Home Medications Medication Instructions Recorded Confirmed Ferrous Sulfate [Feosol] 325 mg PO TID 12/23/17 11/29/19 PARoxetine HCL [Paxil] 30 mg PO DAILY 11/29/19 11/29/19 buPROPion HCL [buPROPion HCL SR] 150 mg PO BID 11/29/19 11/29/19 busPIRone HCL 10 mg PO TID PRN 11/29/19 11/29/19 Allergies Allergy/AdvReac Type Severity Reaction Status Date / Time cephalexin monohydrate Allergy Rash/Hives Verified 02/07/20 20:38 [From Keflex] erythromycin base Allergy Rash/Hives Verified 02/07/20 20:38 [Erythromycin Base] metoclopramide HCl Allergy Rash/Hives Verified 02/07/20 20:38 [From Reglan] ibuprofen AdvReac Nausea & Verified 02/07/20 20:38 Vomiting trazodone AdvReac night Verified 02/07/20 20:38 terrors Review of Systems ROS Statement: Those systems with pertinent positive or pertinent negative responses have been documented in the HPI. ROS Other: All systems not noted in ROS Statement are negative. Past Medical History Past Medical History: Asthma, Seizure Disorder Additional Past Medical History / Comment(s): colitis, asthma as a child, hx of ruptured gallbladder with + hepatitis c, anemia., Gastric Bypass (2011). States having vomiting, stomach pains and loose stools. History of Any Multi-Drug Resistant Organisms: None Reported Past Surgical History: Adenoidectomy, Bariatric Surgery, Cholecystectomy, Hysterectomy, Tonsillectomy, Tubal Ligation, Uterine Ablation Additional Past Surgical History / Comment(s): ovarian cyst removal, Gastric bypass (2011) D&C Past Anesthesia/Blood Transfusion Reactions: Motion Sickness, Postoperative Nausea & Vomiting (PONV) Additional Past Anesthesia/Blood Transfusion Reaction / Comment(s): HX OF BLOOD TRANSFUSION - NO REACTION Past Psychological History: Anxiety, Depression Smoking Status: Current every day smoker Past Alcohol Use History: None Reported Past Drug Use History: None Reported - Past Family History Mother Family Medical History: Cancer Additional Family Medical History / Comment(s): endometrial and breast cancer Father Family Medical History: Cancer Additional Family Medical History / Comment(s): esophageal cancer General Exam Limitations: no limitations General appearance: alert, in no apparent distress, other (This is a well-devel oped, well-nourished adult female patient in no acute distress. Vital signs upon presentation are temperature 98.0F, pulse 99, respirations 20, blood pressure 112/78, pulse ox 97% on room air.) Eye exam: Present: normal appearance, PERRL, EOMI. Absent: scleral icterus, co njunctival injection, periorbital swelling ENT exam: Present: normal exam, normal oropharynx, mucous membranes moist Respiratory exam: Present: normal lung sounds bilaterally. Absent: respiratory distress, wheezes, rales, rhonchi, stridor Cardiovascular Exam: Present: regular rate, normal rhythm, normal heart sounds. Absent: systolic murmur, diastolic murmur, rubs, gallop, clicks GI/Abdominal exam: Present: soft, tenderness (Right lower quadrant), normal bowel sounds. Absent: distended, guarding, rebound, rigid Neurological exam: Present: alert, oriented X3, CN II-XII intact Psychiatric exam: Present: normal affect, normal mood Skin exam: Present: warm, dry, intact, normal color. Absent: rash Course Vital Signs 02/07/20 02/08/20 20:34 00:31 Temperature 98.0 F Pulse Rate 99 98 Respiratory 20 18 Rate Blood Pressure 112/78 120/80 O2 Sat by Pulse 97 99 Oximetry Medical Decision Making - Medical Decision Making 44-year-old female patient presents to the emergency department today for evalu ation of right-sided abdominal pain and bloating. Symptoms have been present for the last 2 weeks, worsening today. Physical examination did reveal right lower quadrant tenderness. She did have mild distention of the abdomen however was soft. Labs reviewed and were unremarkable. Normal white blood cell count. Liver enzymes were normal. Urinalysis showed no sign of infection. Given recent surgery and right lower quadrant tenderness and did perform CT of the abdomen and pelvis which showed no acute findings. Did have ectasia of the biliary tree which was unchanged from previous imaging. I did discuss findings and results with the patient. We will discharge her starter packs for pain medicine and nausea medication. She is instructed to follow-up with her primary care physician for recheck in 1-2 days. We also discuss follow-up with her GI specialist. Return parameters were discussed in detail. She verbalizes understanding and agrees with this plan. - Lab Data Result diagrams: 02/07/20 21:43 02/07/20 21:43 Lab Results 02/07/20 02/07/20 02/07/20 Range/Units 21:43 21:43 21:43 WBC 5.4 (3.8-10.6) k/uL RBC 3.55 L (3.80-5.40) m/uL Hgb 11.2 L (11.4-16.0) gm/dL Hct 33.8 L (34.0-46.0) % MCV 95.4 (80.0-100.0) fL MCH 31.6 (25.0-35.0) pg MCHC 33.1 (31.0-37.0) g/dL RDW 16.6 H (11.5-15.5) % Plt Count 218 (150-450) k/uL Neutrophils % 48 % Lymphocytes % 36 % Monocytes % 6 % Eosinophils % 8 % Basophils % 1 % Neutrophils # 2.6 (1.3-7.7) k/uL Lymphocytes # 1.9 (1.0-4.8) k/uL Monocytes # 0.3 (0-1.0) k/uL Eosinophils # 0.4 (0-0.7) k/uL Basophils # 0.0 (0-0.2) k/uL Anisocytosis Slight Sodium 137 (137-145) mmol/L Potassium 5.3 H (3.5-5.1) mmol/L Chloride 107 (98-107) mmol/L Carbon Dioxide 26 (22-30) mmol/L Anion Gap 4 mmol/L BUN 15 (7-17) mg/dL Creatinine 0.77 (0.52-1.04) mg/dL Est GFR (CKD-EPI)AfAm >90 (>60 ml/min/1.73 sqM) Est GFR (CKD-EPI)NonAf >90 (>60 ml/min/1.73 sqM) Glucose 81 (74-99) mg/dL Calcium 8.5 (8.4-10.2) mg/dL Total Bilirubin 0.8 (0.2-1.3) mg/dL AST 44 H (14-36) U/L ALT 20 (4-34) U/L Alkaline Phosphatase 51 (38-126) U/L Total Protein 6.9 (6.3-8.2) g/dL Albumin 4.0 (3.5-5.0) g/dL Amylase 56 (30-110) U/L Lipase 107 (23-300) U/L Urine Color Light Yellow Urine Appearance Clear (Clear) Urine pH 5.5 (5.0-8.0) Ur Specific [place] 1.008 (1.001-1.035) Urine Protein Negative (Negative) Urine Glucose (UA) Negative (Negative) Urine Ketones Negative (Negative) Urine Blood Negative (Negative) Urine Nitrite Negative (Negative) Urine Bilirubin Negative (Negative) Urine Urobilinogen <2.0 (<2.0) mg/dL Ur Leukocyte Esterase Negative (Negative) - Radiology Data Radiology results: report reviewed, image reviewed CT abdomen and pelvis with contrast was obtained. Report is reviewed in its entirety. Impression by Dr. Thorne shows previous surgery. Mild ectasia of the biliary tree unchanged. No evidence of acute abdomen and pelvis. Appendix not seen. No sign of thickened appendix. Disposition Clinical Impression: Abdominal pain, Abdominal bloating Disposition: HOME SELF-CARE Condition: Good Instructions (If sedation given, give patient instructions): Abdominal Pain (ED) Additional Instructions: Follow-up with your primary care physician for recheck in 1-2 days. Follow up with GI specialist for further evaluation as soon as possible. Return to the emergency department immediately for any new, worsening, or concerning symptoms. Is patient prescribed a controlled substance at d/c from ED?: No Referrals: Dominic Funes MD [Primary Care Provider] - 1-2 days Roscoe Powell MD [STAFF PHYSICIAN] - 1-2 days Time of Disposition: 00:21
[2020-02-08 00:34] VITALS: BP 120/80; PULSE 98; RESP 18
== END 2020-02-08 00:36 | disposition home or self-care (01) ==
LOC: EC 20:19
DX: R10.9 Unspecified abdominal pain (principal); R14.0 Abdominal distension (gaseous); R10.813 Right lower quadrant abdominal tenderness; K83.8 Other specified diseases of biliary tract; R11.2 Nausea with vomiting, unspecified; D64.9 Anemia, unspecified; F32.9 Major depressive disorder, single episode, unspecified; F41.9 Anxiety disorder, unspecified; F17.200 Nicotine dependence, unspecified, uncomplicated; Z79.899 Other long term (current) drug therapy; Z88.1 Allergy status to other antibiotic agents; Z88.8 Allergy status to other drugs, medicaments and biological substances; Z88.6 Allergy status to analgesic agent; Z98.84 Bariatric surgery status; Z98.51 Tubal ligation status; Z90.722 Acquired absence of ovaries, bilateral; Z90.710 Acquired absence of both cervix and uterus; Z90.49 Acquired absence of other specified parts of digestive tract
CPT/HCPCS: 36415; 80053; 82150; 83690; 85025; 81003; 74177; 99284; 96374; 96375; 96376; 96361 ×2; J2405; J1170; Q9967

== ENCOUNTER 2020-04-23 13:19 | Emergency (ER) | payer BC ==
[2020-04-23 13:32] VITALS: BP 129/85; PULSE 94; RESP 20; TEMP 98.9
[2020-04-23] MEDS ORDERED: ONDANSETRON 4 MG/2 ML VIAL IVP STA (14:06)
[2020-04-23] MEDS ORDERED: HYDROmorphone 0.5 MG/0.5 ML SYRINGE IVP STA (14:06)
[2020-04-23] MEDS ORDERED: SODIUM CHLORIDE 0.9% 1,000 ML IV STA (14:06)
--- NOTE | 2020-04-23 14:22 | ED ---
Abdominal Pain HPI - General Source: old records reviewed <Sam Zimmer - Last Filed: 04/23/20 15:58> - General Source: patient, RN notes reviewed Mode of arrival: ambulatory Limitations: no limitations <James Britt - Last Filed: 04/23/20 16:11> - General Chief Complaint: Abdominal Pain Stated Complaint: abd pain-sent by Krishan Time Seen by Provider: 04/23/20 13:36 - History of Present Illness Initial Comments: 44-year-old female presents emergency Department chief complaint of right lower abdominal pain. Patient states she's had waxing and waning symptoms for 1-2 months. Patient's had multiple CAT scans, ultrasounds. She's had a prior cholecystectomy, gastric bypass surgery, oophorectomy. Patient states that she has had no clear diagnosis of cause of her pain. She is supposed to have an appointment with Dr. Ortiz today in which she states the pain worsened she called office and was advised, emergency department. She has no plan to dysuria hematuria no vaginal symptoms. Patient states she was having some diarrhea and then she was constipated though she had good bowel movement today with no relief of her pain. Patient denies any fevers or chills no back pain no history kidney stones. (James Britt) - Related Data Home Medications Medication Instructions Recorded Confirmed buPROPion HCL [buPROPion HCL SR] 150 mg PO BID 11/29/19 04/23/20 busPIRone HCL 10 mg PO TID PRN 11/29/19 04/23/20 Black Cohosh Root [Black Cohosh] 200 mg PO DAILY 04/23/20 04/23/20 Estrogens, Conjugated [Premarin] 0.45 mg PO DAILY 04/23/20 04/23/20 HYDROcodone/APAP 5-325MG [[place] 1 tab PO DAILY PRN 04/23/20 04/23/20 5-325] PARoxetine [Paxil] 20 mg PO DAILY 04/23/20 04/23/20 Soy Isofla/Blk Cohosh/Mag Bark 155 mg PO DAILY 04/23/20 04/23/20 [[place] 155 mg Capsule] Allergies Allergy/AdvReac Type Severity Reaction Status Date / Time cephalexin monohydrate Allergy Rash/Hives Verified 04/23/20 15:11 [From Keflex] erythromycin base Allergy Rash/Hives Verified 04/23/20 15:11 [Erythromycin Base] metoclopramide HCl Allergy Rash/Hives Verified 04/23/20 15:11 [From Reglan] ibuprofen AdvReac Nausea & Verified 04/23/20 15:11 Vomiting trazodone AdvReac night Verified 04/23/20 15:11 terrors Review of Systems ROS Other: All systems not noted in ROS Statement are negative. <Sam Zimmer - Last Filed: 04/23/20 15:58> ROS Other: All systems not noted in ROS Statement are negative. <James Britt - Last Filed: 04/23/20 16:11> ROS Statement: Those systems with pertinent positive or pertinent negative responses have been documented in the HPI. Past Medical History Past Medical History: Asthma, Seizure Disorder Additional Past Medical History / Comment(s): colitis, asthma as a child, hx of ruptured gallbladder with + hepatitis c, anemia., Gastric Bypass (2011). States having vomiting, stomach pains and loose stools. History of Any Multi-Drug Resistant Organisms: None Reported Past Surgical History: Adenoidectomy, Bariatric Surgery, Cholecystectomy, Hysterectomy, Tonsillectomy, Tubal Ligation, Uterine Ablation Additional Past Surgical History / Comment(s): ovarian cyst removal, Gastric bypass (2011) D&C , ovaries/fallopian tubes removed Past Anesthesia/Blood Transfusion Reactions: Motion Sickness, Postoperative Nausea & Vomiting (PONV) Additional Past Anesthesia/Blood Transfusion Reaction / Comment(s): HX OF BLOOD TRANSFUSION - NO REACTION Past Psychological History: Anxiety, Depression Smoking Status: Current every day smoker Past Alcohol Use History: None Reported Past Drug Use History: None Reported - Past Family History Mother Family Medical History: Cancer Additional Family Medical History / Comment(s): endometrial and breast cancer Father Family Medical History: Cancer Additional Family Medical History / Comment(s): esophageal cancer <James Britt - Last Filed: 04/23/20 16:11> General Exam Limitations: no limitations General appearance: alert, in no apparent distress Head exam: Present: atraumatic, normocephalic, normal inspection Respiratory exam: Present: normal lung sounds bilaterally. Absent: respiratory distress, wheezes, rales, rhonchi, stridor Cardiovascular Exam: Present: regular rate, normal rhythm, normal heart sounds. Absent: systolic murmur, diastolic murmur, rubs, gallop, clicks GI/Abdominal exam: Present: soft, tenderness (Moderate right lower quadrant), normal bowel sounds. Absent: distended, guarding, rebound, rigid Back exam: Absent: CVA tenderness (R), CVA tenderness (L) Neurological exam: Present: alert, oriented X3 Skin exam: Present: warm, dry, intact, normal color. Absent: rash <James Britt - Last Filed: 04/23/20 16:11> Course Vital Signs 04/23/20 13:28 Temperature 98.9 F Pulse Rate 94 Respiratory 20 Rate Blood Pressure 129/85 O2 Sat by Pulse 98 Oximetry Medical Decision Making - Lab Data Result diagrams: 04/23/20 14:22 04/23/20 14:22 <Sam Zimmer - Last Filed: 04/23/20 15:58> - Lab Data Result diagrams: 04/23/20 14:22 04/23/20 14:22 <James Britt - Last Filed: 04/23/20 16:11> - Medical Decision Making Patient reevaluated and reexamined by myself, Dr. Zimmer. Patient resting comfortably in bed. Abdomen soft and nontender. Patient states she is feeling much better at this time. Case was discussed in detail with Dr. Ortiz including CT report from 04/01/[address] [facility]. Ortiz is comfortable with discharge and can follow-up tomorrow with the patient in the bariatric center. (Sam Zimmer) Patient updated on results and discussion with Dr. Ortiz patient agrees to follow-up in office tomorrow at bariatric clinic. Return parameters were discus sed. (James Britt) - Lab Data Lab Results 04/23/20 04/23/20 04/23/20 Range/Units 14:22 14:22 14:22 WBC 4.5 (3.8-10.6) k/uL RBC 4.01 (3.80-5.40) m/uL Hgb 12.5 (11.4-16.0) gm/dL Hct 37.5 (34.0-46.0) % MCV 93.6 (80.0-100.0) fL MCH 31.1 (25.0-35.0) pg MCHC 33.2 (31.0-37.0) g/dL RDW 14.8 (11.5-15.5) % Plt Count 209 (150-450) k/uL MPV 8.8 Neutrophils % 46 % Lymphocytes % 37 % Monocytes % 6 % Eosinophils % 7 % Basophils % 1 % Neutrophils # 2.1 (1.3-7.7) k/uL Lymphocytes # 1.7 (1.0-4.8) k/uL Monocytes # 0.3 (0-1.0) k/uL Eosinophils # 0.3 (0-0.7) k/uL Basophils # 0.0 (0-0.2) k/uL Sodium 139 (137-145) mmol/L Potassium 4.6 (3.5-5.1) mmol/L Chloride 108 H (98-107) mmol/L Carbon Dioxide 29 (22-30) mmol/L Anion Gap 2 mmol/L BUN 15 (7-17) mg/dL Creatinine 0.85 (0.52-1.04) mg/dL Est GFR (CKD-EPI)AfAm >90 (>60 ml/min/1.73 sqM) Est GFR (CKD-EPI)NonAf 84 (>60 ml/min/1.73 sqM) Glucose 94 (74-99) mg/dL Plasma Lactic Acid Will (0.7-2.0) mmol/L Calcium 8.8 (8.4-10.2) mg/dL Total Bilirubin 0.3 (0.2-1.3) mg/dL AST 23 (14-36) U/L ALT 16 (4-34) U/L Alkaline Phosphatase 68 (38-126) U/L Total Protein 6.7 (6.3-8.2) g/dL Albumin 3.8 (3.5-5.0) g/dL Lipase 123 (23-300) U/L Urine Color Light Yellow Urine Appearance Clear (Clear) Urine pH 7.5 (5.0-8.0) Ur Specific [place] 1.010 (1.001-1.035) Urine Protein Negative (Negative) Urine Glucose (UA) Negative (Negative) Urine Ketones Negative (Negative) Urine Blood Negative (Negative) Urine Nitrite Negative (Negative) Urine Bilirubin Negative (Negative) Urine Urobilinogen <2.0 (<2.0) mg/dL Ur Leukocyte Esterase Negative (Negative) 04/23/20 Range/Units 14:22 WBC (3.8-10.6) k/uL RBC (3.80-5.40) m/uL Hgb (11.4-16.0) gm/dL Hct (34.0-46.0) % MCV (80.0-100.0) fL MCH (25.0-35.0) pg MCHC (31.0-37.0) g/dL RDW (11.5-15.5) % Plt Count (150-450) k/uL MPV Neutrophils % % Lymphocytes % % Monocytes % % Eosinophils % % Basophils % % Neutrophils # (1.3-7.7) k/uL Lymphocytes # (1.0-4.8) k/uL Monocytes # (0-1.0) k/uL Eosinophils # (0-0.7) k/uL Basophils # (0-0.2) k/uL Sodium (137-145) mmol/L Potassium (3.5-5.1) mmol/L Chloride (98-107) mmol/L Carbon Dioxide (22-30) mmol/L Anion Gap mmol/L BUN (7-17) mg/dL Creatinine (0.52-1.04) mg/dL Est GFR (CKD-EPI)AfAm (>60 ml/min/1.73 sqM) Est GFR (CKD-EPI)NonAf (>60 ml/min/1.73 sqM) Glucose (74-99) mg/dL Plasma Lactic Acid Will 0.9 (0.7-2.0) mmol/L Calcium (8.4-10.2) mg/dL Total Bilirubin (0.2-1.3) mg/dL AST (14-36) U/L ALT (4-34) U/L Alkaline Phosphatase (38-126) U/L Total Protein (6.3-8.2) g/dL Albumin (3.5-5.0) g/dL Lipase (23-300) U/L Urine Color Urine Appearance (Clear) Urine pH (5.0-8.0) Ur Specific [place] (1.001-1.035) Urine Protein (Negative) Urine Glucose (UA) (Negative) Urine Ketones (Negative) Urine Blood (Negative) Urine Nitrite (Negative) Urine Bilirubin (Negative) Urine Urobilinogen (<2.0) mg/dL Ur Leukocyte Esterase (Negative) Disposition <Sam Zimmer - Last Filed: 04/23/20 15:58> Is patient prescribed a controlled substance at d/c from ED?: No Time of Disposition: 16:11 <James Britt - Last Filed: 04/23/20 16:11> Clinical Impression: Abdominal pain Disposition: HOME SELF-CARE Condition: Stable Instructions (If sedation given, give patient instructions): Abdominal Pain (ED) Additional Instructions: Please call in the morning to follow-up with Dr. Ortiz in bariatric clinic. Please return to the Emergency Department if symptoms worsen or any other concerns. Referrals: Dominic Funes MD [Primary Care Provider] - 1-2 days Echo Nickerson MD [STAFF PHYSICIAN] - 1-2 days
[2020-04-23 14:47] LABS: Appearance,Urine Clear (Clear); Bilirubin,Urine Negative (Negative); Blood,Urine Negative (Negative); Color,Urine Light Yellow; Glucose,Urine (UA) Negative (Negative); Ketones,Urine Negative (Negative); Leukocyte Esterase,Urine Negative (Negative); Nitrite,Urine Negative (Negative); PH, Urine 7.5 (5.0-8.0); Protein,Urine Negative (Negative); Urobilinogen,Urine <2.0 mg/dL (<2.0)
[2020-04-23 15:01] LABS: Basophils % (A) 1 %; Eosinophils # (A) 0.3 k/uL (0-0.7); Eosinophils % (A) 7 %; HCT 37.5 % (34.0-46.0); HGB 12.5 gm/dL (11.4-16.0); Lymphocytes # (A) 1.7 k/uL (1.0-4.8); Lymphocytes % (A) 37 %; MCH 31.1 pg (25.0-35.0); MCHC 33.2 g/dL (31.0-37.0); MCV 93.6 fL (80.0-100.0); Mean Platelet Volume 8.8; Monocytes # (A) 0.3 k/uL (0-1.0); Monocytes % (A) 6 %; Neutrophils # (A) 2.1 k/uL (1.3-7.7); Neutrophils % (A) 46 %; Platelet Count 209 k/uL (150-450); RBC 4.01 m/uL (3.80-5.40); RDW 14.8 % (11.5-15.5); WBC 4.5 k/uL (3.8-10.6)
[2020-04-23 15:05] LABS: ALT 16 U/L (4-34); AST 23 U/L (14-36); African American GFR (CKD) >90 (>60 ml/min/1.73 sqM); Albumin 3.8 g/dL (3.5-5.0); Alkaline Phosphatase 68 U/L (38-126); Anion Gap 2 mmol/L; Blood Urea Nitrogen 15 mg/dL (7-17); Calcium 8.8 mg/dL (8.4-10.2); Carbon Dioxide 29 mmol/L (22-30); Chloride 108 mmol/L (98-107); Glucose 94 mg/dL (74-99); Lipase 123 U/L (23-300); Non-African American GFR(CKD) 84 (>60 ml/min/1.73 sqM); Potassium 4.6 mmol/L (3.5-5.1); Sodium 139 mmol/L (137-145); Total Bilirubin 0.3 mg/dL (0.2-1.3); Total Protein 6.7 g/dL (6.3-8.2)
[2020-04-23] MEDS ORDERED: HYDROcodone/APAP 10-325MG 1 EACH TAB PO ONE (16:11)
== END 2020-04-23 16:24 | disposition home or self-care (01) ==
LOC: EC 13:19
DX: R10.31 Right lower quadrant pain (principal); F41.9 Anxiety disorder, unspecified; F32.9 Major depressive disorder, single episode, unspecified; G40.909 Epilepsy, unspecified, not intractable, without status epilepticus; F17.200 Nicotine dependence, unspecified, uncomplicated; Z79.899 Other long term (current) drug therapy; Z79.890 Hormone replacement therapy; Z88.1 Allergy status to other antibiotic agents; Z88.6 Allergy status to analgesic agent; Z88.8 Allergy status to other drugs, medicaments and biological substances; Z98.84 Bariatric surgery status; Z90.722 Acquired absence of ovaries, bilateral; Z90.49 Acquired absence of other specified parts of digestive tract
CPT/HCPCS: 36415; 80053; 83605; 83690; 85025; 81003; 99284; 96374; 96375; 96361; J2405; J1170

== ENCOUNTER → 2020-04-24 | Outpatient (CLI) | payer BC ==
[2020-04-24 15:56] VITALS: BP 115/72; PULSE 102; RESP 18; TEMP 97.9; BMI 28.7
--- NOTE | 2020-04-24 16:25 | P.HPBAR ---
Bariatric H&P - History & Physicial H&P Date: 04/24/20 History & Physicial: Visit/CC: follow up Patient initial contact: Initial weight: 77.564 kg Initial weight in pounds: 171.00 Height: 5 ft 6 in Initial BMI: 27.6 Last weight: Current weight: 80.739 kg Current weight in pounds: 178.00 Current BMI: 28.7 [place] body weight (based on NIH guidelines): 58.967 kg Excess body weight loss: The patient is a 44 year-old F who presents for Bariatric Assessment. HPI: Comes in with 1 month history of RLQ pain. CT of abdomen pelvis reviewed. Findings consistent with chronic appendicitis. Colonoscopy is pending. She has history colitis. REcommend colonoscopy. Surgeon Dr. fran bardales. Highest 340 pounds. Past Medical History Past Medical History: Asthma, Seizure Disorder Additional Past Medical History / Comment(s): colitis, asthma as a child, hx of ruptured gallbladder with + hepatitis c, anemia., Gastric Bypass (2011). States having vomiting, stomach pains and loose stools. History of Any Multi-Drug Resistant Organisms: None Reported Past Surgical History: Adenoidectomy, Bariatric Surgery, Cholecystectomy, Hysterectomy, Tonsillectomy, Tubal Ligation, Uterine Ablation Additional Past Surgical History / Comment(s): ovarian cyst removal, Gastric bypass (2011) D&C , ovaries/fallopian tubes removed Past Anesthesia/Blood Transfusion Reactions: Motion Sickness, Postoperative Nausea & Vomiting (PONV) Additional Past Anesthesia/Blood Transfusion Reaction / Comm: HX OF BLOOD TRANSFUSION - NO REACTION Past Psychological History: Anxiety, Depression Additional Psychological History / Comment(s): States no problems now. Smoking Status: Former smoker Past Alcohol Use History: None Reported Additional Past Alcohol Use History / Comment(s): smoked < ppd. quit smoking 1 year ago (2015). smoked approx. 3 years. Past Drug Use History: None Reported - Past Family History Mother Family Medical History: Cancer Additional Family Medical History / Comment(s): endometrial and breast cancer Father Family Medical History: Cancer Additional Family Medical History / Comment(s): esophageal cancer Surgical - Exam Vital Signs Temp Pulse Resp BP 97.9 F 102 H 18 115/72 04/24/20 15:49 04/24/20 15:49 04/24/20 15:49 12/09/20 15:49 Bariatric Checklist Checklist: Plan: Checklist: EGD: 1. Hiatal hernia: 2. H. Pylori: HgbA1c: Vitamin D: Smoking: Former smoker Primary care physician referral: haydee lynch Psychiatry clearance: Cardiology clearance: Sleep study: Diet journal: VTE risk score: VTE risk level: Rehab needs at discharge:
== END | disposition home or self-care (01) ==
LOC: BARWHC3 15:13
PROVIDERS: ATTEND Surgery Plastic and Reconstructive Surgery
DX: R10.31 Right lower quadrant pain (principal); Z90.49 Acquired absence of other specified parts of digestive tract; Z87.19 Personal history of other diseases of the digestive system; Z87.891 Personal history of nicotine dependence; Z98.84 Bariatric surgery status
CPT/HCPCS: 99211

== ENCOUNTER 2020-05-13 07:54 | Day surgery (SDC) | payer BC ==
[2020-05-07 09:47] VITALS: BMI 26.6
--- NOTE | 2020-05-12 20:43 | P.GSHP ---
History of Present Illness H&P Date: 05/13/20 CHIEF COMPLAINT: Right lower quadrant abdominal pain HISTORY OF PRESENT ILLNESS: The patient is a 44-year-old female who presents persistent right lower quadrant abdominal pain that is crampy dull ache in nature. No reports of prior abdominal pain. She states the intensity of the pain is moderate. Diagnostic studies were completed. She presents with chronic appendicitis. PAST MEDICAL HISTORY: See list. PAST SURGICAL HISTORY: See list. CURRENT MEDICATIONS: See list. ALLERGIES: See list. SOCIAL HISTORY: See list. FAMILY HISTORY: No Crohns disease and ulcerative colitis. REVIEW OF ORGAN SYSTEMS: CONSTITUTIONAL: Present fever, no chills. PHYSICAL EXAMINATION: GENERAL: A 44-year-old female in no acute distress. Pleasant. HEENT: No sclera icterus. Extraocular movements grossly intact. Moist buccal mucosa. Head is atraumatic, normocephalic. Hears conversational speech. No nasal drainage. NECK: Supple without lymphadenopathy. No JV distention. CHEST: Non-labored respirations and equal bilateral excursions. CARDIOVASCULAR: Regular rate and rhythm. Palpable 2+ radial pulses. ABDOMEN: Soft, tender at the right lower quadrant without guarding. MUSCULOSKELETAL: No clubbing, cyanosis or edema. NEUROLOGIC: No focal or lateralizing signs. PSYCH: Appropriate affect. Alert and oriented to person, place and time. SKIN: Well perfused. Good skin turgor. LABS: Reviewed. STUDIES: CT of the abdomen and pelvis reviewed ASSESSMENT: 1. Right lower quadrant pain. 2. Chronic appendicitis PLAN: 1. I have discussed benefits and risks of robotic appendectomy. 2. Bilateral SCDs. Past Medical History Past Medical History: Asthma, Seizure Disorder Additional Past Medical History / Comment(s): colitis, asthma as a child, hx of ruptured gallbladder with + hepatitis c, anemia., Gastric Bypass (2011). States having vomiting, stomach pains and loose stools. last seizure 2014. History of Any Multi-Drug Resistant Organisms: None Reported Past Surgical History: Adenoidectomy, Bariatric Surgery, Cholecystectomy, Hysterectomy, Tonsillectomy, Tubal Ligation, Uterine Ablation Additional Past Surgical History / Comment(s): ovarian cyst removal, Gastric bypass (2011) D&C , ovaries/fallopian tubes removed Past Anesthesia/Blood Transfusion Reactions: Motion Sickness, Postoperative Na usea & Vomiting (PONV) Additional Past Anesthesia/Blood Transfusion Reaction / Comment(s): HX OF BLOOD TRANSFUSION - NO REACTION Smoking Status: Former smoker - Past Family History Mother Family Medical History: Cancer Additional Family Medical History / Comment(s): endometrial and breast cancer Father Family Medical History: Cancer Additional Family Medical History / Comment(s): esophageal cancer Medications and Allergies Home Medications Medication Instructions Recorded Confirmed Type buPROPion HCL [buPROPion HCL SR] 150 mg PO BID 11/29/19 05/07/20 History busPIRone HCL 10 mg PO TID PRN 11/29/19 05/07/20 History Estrogens, Conjugated [Premarin] 0.45 mg PO DAILY 04/23/20 05/07/20 History PARoxetine [Paxil] 20 mg PO DAILY 04/23/20 05/07/20 History Allergies Allergy/AdvReac Type Severity Reaction Status Date / Time cephalexin monohydrate Allergy Rash/Hives Verified 05/07/20 09:38 [From Keflex] erythromycin base Allergy Rash/Hives Verified 05/07/20 09:38 [Erythromycin Base] metoclopramide HCl Allergy Rash/Hives Verified 05/07/20 09:38 [From Reglan] ibuprofen AdvReac Nausea & Verified 05/07/20 09:38 Vomiting trazodone AdvReac night Verified 05/07/20 09:38 terrors
[~2020-05-13 07:54] MED LIST changes: +ACETAMINOPHEN TAB 500 MG TAB PO STA; +CLINDAMYCIN 900 MG in DEXTROSE 5% IN WATER 50 ML IVPB PRN; +DEXAMETHASONE SOD PHOSPHATE 4 MG/ML 1 ML VIAL IV ONE; +GABAPENTIN 300 MG CAP PO STA; -LIDOCAINE 1% 20 ML VIAL (10MG/ML) FOR IV START INTRADERMA PRN; +MIDAZOLAM 2 MG/2 ML VIAL IV PRN; +ONDANSETRON 4 MG/2 ML VIAL IVP ONE; +SCOPOLAMINE 1.5MG/72HR PATCH TRANSDERM ONE; +SCOPOLAMINE 1.5MG/72HR PATCH TRANSDERM STA
[2020-05-13] MEDS ORDERED: SUCCINYLCHOLINE CHLORIDE 100 MG/5 ML SYR IV ONE (09:28)
[2020-05-13] MEDS ORDERED: ROCURONIUM 10 MG/ML (10 ML VIAL) IV ONE (09:28)
[2020-05-13] MEDS ORDERED: NEOSTIGMINE 1 MG/ML 10 ML VIAL ONE (09:28)
[2020-05-13] MEDS ORDERED: MIDAZOLAM 2 MG/2 ML VIAL ONE (09:28)
[2020-05-13] MEDS ORDERED: fentaNYL (PF) 50 MCG/ML 2 ML AMP ONE (09:28)
[2020-05-13] MEDS ORDERED: GLYCOPYRROLATE 0.2 MG/ML 2 ML VIAL ONE (09:28)
[2020-05-13] MEDS ORDERED: LIDOCAINE 1% INJ 10MG/ML (20 ML MDV) ONE (09:28)
[2020-05-13] MEDS ORDERED: PROPOFOL 10 MG/ML 20 ML VIAL IV ONE (09:28)
[2020-05-13] MEDS: GENTAMICIN 320 MG in SODIUM CHLORIDE 0.9% 100 ML IVPB PRN ×2 (09:57→10:00)
[2020-05-13] MEDS ORDERED: LIDOCAINE 1%-EPI 1:100,000 20 ML VIAL SQ ONE (10:00)
[2020-05-13] MEDS ORDERED: LACTATED RINGERS 1,000 ML IV ONE (10:20)
[2020-05-13 10:46] VITALS: TEMP 97.1
[2020-05-13] MEDS: HYDROmorphone 0.5 MG/0.5 ML SYRINGE IVP PRN ×2 (10:49→10:55)
--- NOTE | 2020-05-13 10:53 | P.PCN ---
Date of Procedure: 05/13/20 Description of Procedure: SURGEON: ECHO NICKERSON MD Preoperative Diagnosis: 1. Right lower quadrant abdominal pain 2. History of gastric bypass 3. Chronic appendicitis Postoperative Diagnosis: 1. Right lower quadrant abdominal pain 2. History of gastric bypass 3. Chronic appendicitis Procedure(s) Performed: 1. Robotic-assisted daVinci Xi laparoscopic appendectomy Anesthesia: GETA, local Surgeon: Echo Nickerson Estimated Blood Loss (ml): 5 Pathology: other (appendix) Condition: stable Disposition: floor Operative Findings: 1. Bilateral oophorectomy identified with uterus intact 2. No inguinal hernias identified 3. Highly redundant sigmoid colon with moderate hard fecal retention 4. No small bowel volvulus identified 5. Liver unremarkable 6. No intussusception 7. Limited view of Bonilla defect and jejunojejunostomy mesenteric defect 8. No evidence of small bowel obstruction INDICATIONS: The patient is a 44-year-old female who presents with moderate severe right lower quadrant abdominal pain. She is personal history of bilateral oophorectomy. She underwent multiple diagnostic studies. Clinical features of chronic appendicitis was described with appendectomy. Benefits and risks, including infection, open surgery, and bleeding for additional surgery was discussed at length. Informed consent was obtained. All questions of the patient and family were answered. DESCRIPTION: The patient was transferred to the operating room and placed in supine position. The patient had previously voided. The abdomen was then prepped and draped in standard sterile fashion as Ioban was placed along the abdomen to minimize any contamination of skin floor. After a timeout protocol was performed, attention was then brought to the left upper quadrant whereby a 0 degree 5 mm laparoscopic trocar entry was performed. The abdominal cavity was entered and insufflated to 12 mmHg pressure, which was tolerated well. Diagnostic laparoscopy demonstrated no injury to bowel, viscera or mesentery. Next a robotic 8-mm trocar was placed along the left lower quadrant, 10-cm lateral to the midline. A 12 mm port was placed along the left upper quadrant and another 8-mm port left lateral abdominal wall. Ports were placed 8 cm apart from each other including 15-20 cm away from the target anatomy of the right pelvis. The patient was then placed in Trendelenburg position, at least 7 down and right side up at least 7. The robotic da Quita XI system was primed and docked from the left side of the patient. Using atraumatic graspers and vessel sealer, the robotic system was docked and primed as described. Instruments were interchanged by the reference assistant including graspers, robotic stapler and vessel sealer. Next, attention was brought to identify the cecum. A systematic view within the abdominal cavity was started with the small bowel which was unremarkable. The small intestine I was investigated from the ileocecal valve proximally towards the jejunojejunostomy. No evidence of small bowel obstruction was identified. No evidence of small bowel volvulus was found. No evidence of inguinal or ventral hernias were found. Moderate retained stool within the highly redundant sigmoid colon was found to the level of the descending colon. No evidence of sigmoid volvulus was identified. Attention was brought to the appendix. The appendix was dissected free from its surrounding tissues. Blue 45 mm robotic staple load was fired along the base of the appendix. The staple line was hemostatic. Hemostasis was checked prior to undocking the robot. The robot was undocked. I re-scrubbed into the case. The specimen was removed from the abdominal cavity with an Endo Catch bag through the 12 mm trocar at the left upper quadrant. The port site was closed with 0 Vicryl and Alan Monsivais. All instruments and pneumoperitoneum were evacuated from the abdominal cavity. Local anesthetic was infiltrated to all wounds for postop analgesia. All incisions were also cleansed with diluted hydrogen peroxide. The incisions were closed with 4-0 Monocryl. Exofin glue was applied to the rest of the skin incisions. The patient had tolerated the procedure well. The patient was extubated successfully. The patient was transferred to the postanesthesia care unit in stable condition. Plan - Discharge Summary Discharge Rx Participant: No New Discharge Prescriptions: Continue busPIRone HCL 10 mg PO TID PRN PRN Reason: Anxiety buPROPion HCL [buPROPion HCL SR] 150 mg PO BID PARoxetine [Paxil] 20 mg PO DAILY Estrogens, Conjugated [Premarin] 0.45 mg PO DAILY Discharge Medication List buPROPion HCL [buPROPion HCL SR] 150 mg PO BID 11/29/19 [History] busPIRone HCL 10 mg PO TID PRN 11/29/19 [History] Estrogens, Conjugated [Premarin] 0.45 mg PO DAILY 04/23/20 [History] PARoxetine [Paxil] 20 mg PO DAILY 04/23/20 [History] Follow up Appointment(s)/Referral(s): [facility] [NON-STAFF] - 05/22/20 Patient Instructions/Handouts: *[facility] - Scopalamine Patch Instructions, Exploratory Laparoscopy (IP), Laparoscopic Appendectomy (DC) Discharge Disposition: HOME SELF-CARE
[2020-05-13 11:45] VITALS: RESP 16
[2020-05-13] MEDS ORDERED: HYDROcodone/APAP 5-325MG 1 EACH TAB ONE (12:02)
[2020-05-13] MEDS ORDERED: HYDROcodone/APAP 5-325MG 1 EACH TAB PO ONE (12:04)
[2020-05-13 12:24] VITALS: BP 123/88; PULSE 73
== END 2020-05-13 12:44 | disposition home or self-care (01) ==
LOC: OR 07:54
PROVIDERS: ATTEND Surgery Plastic and Reconstructive Surgery
DX: K36 Other appendicitis (principal); K35.80 Unspecified acute appendicitis; J45.909 Unspecified asthma, uncomplicated; G40.909 Epilepsy, unspecified, not intractable, without status epilepticus; Q43.8 Other specified congenital malformations of intestine; Z86.2 Personal history of diseases of the blood and blood-forming organs and certain disorders involving the immune mechanism; Z86.19 Personal history of other infectious and parasitic diseases; Z87.19 Personal history of other diseases of the digestive system; Z87.891 Personal history of nicotine dependence; Z80.3 Family history of malignant neoplasm of breast; Z80.0 Family history of malignant neoplasm of digestive organs; Z80.8 Family history of malignant neoplasm of other organs or systems; Z79.890 Hormone replacement therapy; Z79.899 Other long term (current) drug therapy; Z88.1 Allergy status to other antibiotic agents; Z88.6 Allergy status to analgesic agent; Z88.8 Allergy status to other drugs, medicaments and biological substances; Z90.722 Acquired absence of ovaries, bilateral; Z90.49 Acquired absence of other specified parts of digestive tract; Z98.890 Other specified postprocedural states; Z98.84 Bariatric surgery status; Z98.51 Tubal ligation status
CPT/HCPCS: 44970; 88304; J2250; J1100; J2710; J2405; J2001; J3010; J1580; J0330; J2704; J1170

== ENCOUNTER → 2020-05-21 | Outpatient (CLI) | payer BC ==
[2020-05-21 11:28] VITALS: BP 116/78; PULSE 76; TEMP 98.7; BMI 27.4
== END | disposition home or self-care (01) ==
LOC: BARWHC3 10:21
PROVIDERS: ATTEND Surgery Plastic and Reconstructive Surgery
DX: Z48.815 Encounter for surgical aftercare following surgery on the digestive system (principal)
CPT/HCPCS: 99211

== ENCOUNTER → 2020-05-29 | Outpatient (CLI) | payer BC ==
[2020-05-29 13:14] VITALS: BP 137/65; PULSE 83; RESP 18; TEMP 98.1; BMI 26.8
--- NOTE | 2020-05-29 13:19 | P.PN ---
Subjective Progress Note Date: 05/29/20 DATE OF SERVICE: 05/29/2020 CHIEF COMPLAINT: Status post gastric bypass HISTORY OF PRESENT ILLNESS: Jennifer Thomas is a 44-year-old female status post gastric bypass, 2011. She is now status post appendectomy, 05/13/2020. She is 2 weeks post op. Her abdominal pain is completely resolved. She is very happy. Her appendix came back as chronic appendicitis. She lost 12 pounds in 1 month. She is exercising and doing well. She complains of panniculitis. She is losing weight and feeling great. At height of 5 feet 6 inches, her ideal body weight is 154 pounds. Her highest weight was 370 pounds, BMI 59.8. She comes in with 166 pounds from 171 pounds, 3 years ago. Her body mass index is down from 59.8 to 26.8. She has lost 12 pounds in 3 years. Lifetime weight loss is 204 pounds, Her percent excess weight loss is 95%. She is 12 pounds overweight. PHYSICAL EXAM: VITAL SIGNS: Height 5 foot 6 inches, weight 166 pounds. BMI 26.8 Vital Signs Temp 98.1 F 05/29/20 13:08 Pulse 83 05/29/20 13:08 Resp 18 05/29/20 13:08 BP 137/65 05/29/20 13:08 Pulse Ox Intake & Output 05/29/20 05/29/20 05/30/20 06:59 18:59 06:59 Weight 75.296 kg GENERAL: Well-developed in no acute distress. HEENT: No scleral icterus. Extraocular movements grossly intact. Hears conv ersational speech. No nasal drainage. NECK: Supple without lymphadenopathy. CHEST: Nonlabored respirations with equal bilateral excursions. CARDIOVASCULAR: Tachycardic. Distal 2+ pulses. ABDOMEN: Incisions are granulated. MUSCULOSKELETAL: No clubbing, cyanosis. NEURO: No focal or lateralizing signs. Cranial nerves 2 through 12 grossly within normal limits. PSYCH: Appropriate affect. Alert and oriented to person, place and time. SKIN: Good skin turgor. Well perfused. PATHOLOGY: Chronic inflammation of the appendix. ASSESSMENT: 1. Morbid obesity due to excess calories 2. Body mass index, 59.8 initial now 26.8 3. Seizure disorder 4. Asthma 5. Panniculitis 6. Anxiety 7. Depression 8. History of iron deficiency anemia 9. Incisional hernia, epigastrium 10. Epigastric abdominal pain 11. Vitamin D deficiency 12. Secondary hyperparathyroidism 13. Status post gastric bypass 14. Status post appendectomy PLAN: 1. Recommend outreach librarian referral for panniculitis. 2. Recommend follow-up for pictures for panniculitis. 3. Recommend Nystatin powder for panniculitis. Objective - Vital Signs Vital signs: Vital Signs Temp 98.1 F 05/29/20 13:08 Pulse 83 05/29/20 13:08 Resp 18 05/29/20 13:08 BP 137/65 05/29/20 13:08 Pulse Ox Intake & Output 05/28/20 05/29/20 05/29/20 18:59 06:59 18:59 Weight 75.296 kg
--- NOTE | 2020-05-29 13:24 | P.PN ---
Progress Note - Text Progress Note Date: 05/29/20 To whom it may concern: Jennifer Thomas is under my surgical care. She may return to work Sunday, May 31, 2020 without restrictions. Regards, Echo Nickerson MD
== END | disposition home or self-care (01) ==
LOC: BARWHC3 12:09
PROVIDERS: ATTEND Surgery Plastic and Reconstructive Surgery
DX: E66.01 Morbid (severe) obesity due to excess calories (principal); G40.909 Epilepsy, unspecified, not intractable, without status epilepticus; J45.909 Unspecified asthma, uncomplicated; M79.3 Panniculitis, unspecified; F41.9 Anxiety disorder, unspecified; F32.9 Major depressive disorder, single episode, unspecified; K43.2 Incisional hernia without obstruction or gangrene; R10.13 Epigastric pain; E55.9 Vitamin D deficiency, unspecified; N25.81 Secondary hyperparathyroidism of renal origin; Z86.2 Personal history of diseases of the blood and blood-forming organs and certain disorders involving the immune mechanism; Z68.26 Body mass index [BMI] 26.0-26.9, adult; Z90.49 Acquired absence of other specified parts of digestive tract; Z98.84 Bariatric surgery status
CPT/HCPCS: 99211

== ENCOUNTER 2021-01-14 08:02 | Emergency (ER) | payer BC ==
[2021-01-14 08:14] VITALS: BP 102/65; PULSE 88; RESP 18; TEMP 97.9
[2021-01-14] MEDS ORDERED: ACETAMINOPHEN TAB 500 MG TAB PO STA (08:32)
--- NOTE | 2021-01-14 08:34 | ED ---
General Adult HPI - General Chief complaint: Upper Respiratory Infection Stated complaint: headache, trouble swallowing, chest pressure Time Seen by Provider: 01/14/21 08:17 Source: patient, RN notes reviewed Mode of arrival: ambulatory Limitations: no limitations - History of Present Illness Initial comments: 45-year-old female with a past medical history of asthma presents to the emergency room for a chief complaint of not feeling well. Patient states she feels like she got run over by a truck. Patient states she has a cough and a sore throat. States it hurts to swallow. Patient does not have any fevers that she is aware of. Patient has been eating and drinking at home. 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 Patient is vaccinated.Patient has no other complaints at this time including shortness of breath, chest pain, abdominal pain, nausea or vomiting, headache, or visual changes. - Related Data Home Medications Medication Instructions Recorded Confirmed buPROPion HCL [buPROPion HCL SR] 150 mg PO BID 11/29/19 01/14/21 busPIRone HCL 10 mg PO TID PRN 11/29/19 01/14/21 Estrogen,Con/M-Progest Acet 1 tab PO DAILY 01/14/21 01/14/21 [Prempro 0.625-2.5 mg Tablet] Ibs Clean 1 tab PO BID 01/14/21 01/14/21 PARoxetine HCL 20 mg PO DAILY 01/14/21 01/14/21 Allergies Allergy/AdvReac Type Severity Reaction Status Date / Time cephalexin monohydrate Allergy Rash/Hives Verified 01/14/21 09:23 [From Keflex] erythromycin base Allergy Rash/Hives Verified 01/14/21 09:23 [Erythromycin Base] metoclopramide HCl Allergy Rash/Hives Verified 01/14/21 09:23 [From Reglan] ibuprofen AdvReac Nausea & Verified 01/14/21 09:23 Vomiting trazodone AdvReac night Verified 01/14/21 09:23 terrors Review of Systems ROS Statement: Those systems with pertinent positive or pertinent negative responses have been documented in the HPI. ROS Other: All systems not noted in ROS Statement are negative. Past Medical History Past Medical History: Asthma, Seizure Disorder Additional Past Medical History / Comment(s): colitis, asthma as a child, hx of ruptured gallbladder with + hepatitis c, anemia., Gastric Bypass (2012). States having vomiting, stomach pains and loose stools. last seizure 2014. History of Any Multi-Drug Resistant Organisms: None Reported Past Surgical History: Adenoidectomy, Appendectomy, Bariatric Surgery, Cholecystectomy, Hysterectomy, Tonsillectomy, Tubal Ligation, Uterine Ablation Additional Past Surgical History / Comment(s): ovarian cyst removal, Gastric bypass (2011) D&C , ovaries/fallopian tubes removed Past Anesthesia/Blood Transfusion Reactions: Motion Sickness, Postoperative Nausea & Vomiting (PONV) Additional Past Anesthesia/Blood Transfusion Reaction / Comment(s): HX OF BLOOD TRANSFUSION - NO REACTION Past Psychological History: Anxiety, Depression Smoking Status: Former smoker Past Alcohol Use History: None Reported Past Drug Use History: None Reported - Past Family History Mother Family Medical History: Cancer Additional Family Medical History / Comment(s): endometrial and breast cancer Father Family Medical History: Cancer Additional Family Medical History / Comment(s): esophageal cancer General Exam Limitations: no limitations General appearance: alert, in no apparent distress Head exam: Present: atraumatic Eye exam: Present: normal appearance, PERRL, EOMI. Absent: scleral icterus, conjunctival injection ENT exam: Present: normal exam, mucous membranes moist Neck exam: Present: normal inspection, full ROM. Absent: tenderness Respiratory exam: Present: normal lung sounds bilaterally. Absent: respiratory distress, wheezes Cardiovascular Exam: Present: regular rate, normal rhythm, normal heart sounds GI/Abdominal exam: Present: soft, normal bowel sounds. Absent: distended, tenderness Course Vital Signs 01/14/21 08:10 Temperature 97.9 F Pulse Rate 88 Respiratory 18 Rate Blood Pressure 102/65 O2 Sat by Pulse 98 Oximetry Medical Decision Making - Medical Decision Making Patient presents for cough and sore throat. States she has body aches. 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 Vitals are stable. Patient is well-appearing. Influenza RSV and coronavirus are negative. Chest x-ray shows no acute cardiopulmonary process. I did add a strep swab however uvula is midline, no tonsillar exudates and I will follow-up on this. At this time patient can be discharged home to follow up with primary care. If she has any worsening symptoms I did encourage her to return immediately to the emergency room. 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 - Lab Data Lab Results 01/14/21 Range/Units 08:44 Influenza Type A (PCR) Not Detected (Not Detectd) Influenza Type B (PCR) Not Detected (Not Detectd) RSV (PCR) Not Detected (Not Detectd) SARS-CoV-2 (PCR) Not Detected (Not Detectd) Disposition Clinical Impression: Cough, Pharyngitis, Myalgia Disposition: HOME SELF-CARE Condition: Good Instructions (If sedation given, give patient instructions): Upper Respiratory Infection (ED) Additional Instructions: Take motrin and tylenol for pain. Please follow-up with your doctor in one to 2 days. Return to the emergency room for any worsening symptoms. Is patient prescribed a controlled substance at d/c from ED?: No Referrals: Dominic Funes MD [Primary Care Provider] - 1-2 days Time of Disposition: 10:26
--- NOTE | 2021-01-14 09:14 | XR ---
EXAMINATION TYPE: XR chest 2V DATE OF EXAM: 01/14/2021 COMPARISON: 06/25/2019 HISTORY: Chest pain TECHNIQUE: Frontal and lateral views of the chest are obtained. FINDINGS: There is no focal air space opacity. No evidence for pneumothorax. No pleural effusion. The cardiac silhouette size is within normal limits. The osseous structures are grossly intact. IMPRESSION: 1. No acute cardiopulmonary process.
== END 2021-01-14 10:39 | disposition home or self-care (01) ==
LOC: EC 08:02
DX: J02.9 Acute pharyngitis, unspecified (principal); M79.10 Myalgia, unspecified site; J45.909 Unspecified asthma, uncomplicated; Z87.891 Personal history of nicotine dependence; Z88.1 Allergy status to other antibiotic agents; Z88.6 Allergy status to analgesic agent; Z88.8 Allergy status to other drugs, medicaments and biological substances; Z90.89 Acquired absence of other organs; Z20.822 Contact with and (suspected) exposure to COVID-19
CPT/HCPCS: 71046; 87081; 87430; 87636; 99285

== ENCOUNTER → 2021-04-01 | Outpatient (CLI) | payer BC ==
--- NOTE | 2021-04-01 10:42 | US ---
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 RLQ pain x couple months Scanned RLQ at patient's area of pain: appears wnl No suspicious solid or cystic mass in the right lower quadrant subcutaneous tissue. No hernia defect through the muscle or rectus sheath identified on images saved. IMPRESSION: As above.
== END | disposition home or self-care (01) ==
LOC: RADUSWWP 09:54
PROVIDERS: ATTEND Family Medicine
DX: K43.6 Other and unspecified ventral hernia with obstruction, without gangrene (principal)
CPT/HCPCS: 76705

== ENCOUNTER → 2021-04-15 | Outpatient (CLI) | payer BC ==
--- NOTE | 2021-04-15 10:31 | FL ---
EXAMINATION TYPE: FL barium enema DATE OF EXAM: 04/15/2021 COMPARISON: CT abdomen and pelvis February 07, 2020 HISTORY: History of prior gastric bypass surgery. 8 month history of constipation rule out sigmoid vo lvulus per order. Recent colonoscopy in the last 2 months TECHNIQUE: A single contrast barium enema study is performed. A total of 14 seconds of fluoroscopic time was utilized during procedure and 13 images obtained. FINDINGS: New Media Strategist view of the abdomen shows overall non-obstructive bowel gas pattern. Surgical clips and sutures left mid abdomen from bypass procedure. Enema tip was inserted. There is rapid filling of the rectum into the sigmoid colon and retrograde fi lling into the left colon. There is no volvulus. At this point procedure was terminated. Contrast ext ends into the proximal one third of the transverse colon and even into the right colon on delayed ove rhead images. IMPRESSION: No sigmoid colonic volvulus.
== END | disposition home or self-care (01) ==
LOC: RADFLMAIN 08:47
PROVIDERS: ATTEND Surgery Plastic and Reconstructive Surgery
DX: K56.2 Volvulus (principal)
CPT/HCPCS: 74270

== ENCOUNTER → 2021-05-07 | Outpatient (CLI) | payer BC ==
[2021-05-07 09:53] LABS: Partial Thromboplastin Time 22.4 sec (22.0-30.0); Prothrombin Time 10.3 sec (9.0-12.0)
[2021-05-07 11:08] LABS: HCT 38.5 % (34.0-46.0); HGB 12.4 gm/dL (11.4-16.0); MCH 30.8 pg (25.0-35.0); MCHC 32.1 g/dL (31.0-37.0); MCV 95.7 fL (80.0-100.0); Platelet Count 227 k/uL (150-450); RBC 4.02 m/uL (3.80-5.40); RDW 14.1 % (11.5-15.5)
[2021-05-07 16:21] LABS: % Iron Saturation 17.68 (12.00-45.00); ALT 13 U/L (8-44); AST 17 U/L (13-35); Albumin 4.3 g/dL (3.8-4.9); Albumin/Globulin Ratio 1.67 (1.60-3.17); Alkaline Phosphatase 62 U/L (41-126); BUN/Creat Ratio 15.84 Ratio (12.00-20.00); Blood Urea Nitrogen 12.8 mg/dL (9.0-27.0); Calcium 9.1 mg/dL (8.7-10.3); Carbon Dioxide 23.4 mmol/L (20.0-27.5); Chloride 100 mmol/L (96-109); Chol/HDL Ratio 3.36 Ratio; Ferritin 8.8 ng/mL (10.0-291.0); Globulin 2.6 g/dL (1.6-3.3); Glucose 85 mg/dL (70-110); Iron 91 ug/dL (50-170); LDL Cholesterol,Calculated 109.2 mg/dL (0.0-131.0); Magnesium 2.1 mg/dL (1.5-2.4); Phosphorus 3.3 mg/dL (2.4-5.1); Potassium 3.9 mmol/L (3.5-5.5); Prealbumin 30.7 mg/dL (18.0-42.0); Sodium 136 mmol/L (135-145); Total Bilirubin <0.20 mg/dL (0.30-1.20); Total Iron Binding Capacity 515 ug/dL (228-460); Total Protein 6.9 g/dL (6.2-8.2)
[2021-05-07 16:41] LABS: Folate, Serum >20.00 ng/mL (4.40-31.00)
[2021-05-08 12:57] LABS: Zinc, Serum 81 ug/dL (60-130)
== END | disposition home or self-care (01) ==
LOC: LABPAT 05-06 15:58 → LABWHC1 08:29
PROVIDERS: ATTEND Surgery Plastic and Reconstructive Surgery
DX: E66.01 Morbid (severe) obesity due to excess calories (principal); E21.1 Secondary hyperparathyroidism, not elsewhere classified; D50.8 Other iron deficiency anemias; K90.89 Other intestinal malabsorption; E55.9 Vitamin D deficiency, unspecified; K74.1 Hepatic sclerosis; N19 Unspecified kidney failure; K50.90 Crohn's disease, unspecified, without complications
CPT/HCPCS: 36415; 80053; 80061; 80323; 82306; 82525; 82607; 82728; 82746; 83036; 83540; 83550; 83735; 83970; 84100; 84134; 84255; 84425; 84443; 84590; 84630; 85027; 85610; 85730

== ENCOUNTER → 2021-05-27 | Outpatient (CLI) | payer BC ==
[2021-05-27 13:07] LABS: HCT 37.4 % (34.0-46.0); HGB 11.7 gm/dL (11.4-16.0); Hypochromasia Slight; MCH 30.4 pg (25.0-35.0); MCHC 31.2 g/dL (31.0-37.0); MCV 97.5 fL (80.0-100.0); Platelet Count 251 k/uL (150-450); RBC 3.84 m/uL (3.80-5.40); WBC 4.2 k/uL (3.8-10.6)
[2021-05-27 13:21] LABS: ALT 17 U/L (4-34); AST 23 U/L (14-36); African American GFR (CKD) >90 (>60 ml/min/1.73 sqM); Alkaline Phosphatase 50 U/L (38-126); Anion Gap 6 mmol/L; Blood Urea Nitrogen 10 mg/dL (7-17); Carbon Dioxide 26 mmol/L (22-30); Chloride 106 mmol/L (98-107); Glucose 69 mg/dL (74-99); Non-African American GFR(CKD) 84 (>60 ml/min/1.73 sqM); Potassium 4.2 mmol/L (3.5-5.1); Sodium 138 mmol/L (137-145); Total Bilirubin 0.3 mg/dL (0.2-1.3); Total Protein 7.2 g/dL (6.3-8.2)
== END | disposition home or self-care (01) ==
LOC: LABPAT 11:57
PROVIDERS: ATTEND Surgery Plastic and Reconstructive Surgery
DX: Z01.818 Encounter for other preprocedural examination (principal)
CPT/HCPCS: 80053; 85027

== ENCOUNTER → 2021-05-30 | Outpatient (CLI) | payer BC | END | disposition home or self-care (01) | LOC: LABPAT 10:41 | PROVIDERS: ATTEND Surgery Plastic and Reconstructive Surgery | DX: Z01.812 Encounter for preprocedural laboratory examination (principal) | CPT/HCPCS: U0003; U0005 ==

== ENCOUNTER → 2021-06-20 | Outpatient (CLI) | payer BC ==
[2021-06-20 11:02] LABS: HCT 36.8 % (37.2-46.3); HGB 11.1 g/dL (12.0-15.0); MCH 29.2 pg (27.0-32.0); MCHC 30.2 g/dL (32.0-37.0); MCV 96.8 fL (80.0-97.0); Mean Platelet Volume 11.7 fL (9.5-12.2); Platelet Count 233 X 10*3/uL (140-440); RDW 14.5 % (11.5-14.5); WBC 4.51 X 10*3/uL (4.50-10.00)
[2021-06-20 18:49] LABS: ALT 7 U/L (8-44); AST 16 U/L (13-35); African American GFR (CKD) 89.5 (60.0-200.0); Albumin 4.1 g/dL (3.8-4.9); Albumin/Globulin Ratio 1.52 (1.60-3.17); Alkaline Phosphatase 62 U/L (41-126); BUN/Creat Ratio 12.67 Ratio (12.00-20.00); Blood Urea Nitrogen 11.4 mg/dL (9.0-27.0); Calcium 8.9 mg/dL (8.7-10.3); Carbon Dioxide 21.2 mmol/L (20.0-27.5); Chloride 105 mmol/L (96-109); Globulin 2.7 g/dL (1.6-3.3); Glucose 74 mg/dL (70-110); Non-African American GFR(CKD) 77.2 (60.0-200.0); Potassium 4.2 mmol/L (3.5-5.5); Sodium 138 mmol/L (135-145); Total Bilirubin <0.20 mg/dL (0.30-1.20); Total Protein 6.8 g/dL (6.2-8.2)
== END | disposition home or self-care (01) ==
LOC: LABPAT 08:39
PROVIDERS: ATTEND Surgery Plastic and Reconstructive Surgery
DX: Z01.818 Encounter for other preprocedural examination (principal)
CPT/HCPCS: 36415; 80053; 85027

== ENCOUNTER → 2021-06-23 | Outpatient (CLI) | payer BC ==
[2021-06-24 16:56] LABS: Coronavirus SARS CoV-2 Not Detected (Not Detected)
== END | disposition home or self-care (01) ==
LOC: LABPAT 10:24
PROVIDERS: ATTEND Surgery Plastic and Reconstructive Surgery
DX: Z03.818 Encounter for observation for suspected exposure to other biological agents ruled out (principal); Z20.822 Contact with and (suspected) exposure to COVID-19
CPT/HCPCS: U0003; C9803; U0005

== ENCOUNTER 2021-10-18 11:27 | Emergency (ER) | payer BC ==
[2021-10-18] MEDS ORDERED: KETOROLAC 15 MG/ML 1 ML VIAL IVP STA (12:07)
[2021-10-18] MEDS ORDERED: SODIUM CHLORIDE 0.9% 1,000 ML IV STA (12:07)
[2021-10-18 12:25] LABS: Basophils % (A) 0 %; Eosinophils # (A) 0.2 k/uL (0-0.7); Eosinophils % (A) 4 %; HCT 35.6 % (34.0-46.0); HGB 10.9 gm/dL (11.4-16.0); Hypochromasia Moderate; Lymphocytes # (A) 1.6 k/uL (1.0-4.8); Lymphocytes % (A) 32 %; MCH 28.5 pg (25.0-35.0); MCHC 30.5 g/dL (31.0-37.0); MCV 93.5 fL (80.0-100.0); Mean Platelet Volume 9.1; Monocytes # (A) 0.3 k/uL (0-1.0); Monocytes % (A) 5 %; Neutrophils # (A) 2.8 k/uL (1.3-7.7); Neutrophils % (A) 56 %; Platelet Count 232 k/uL (150-450); RBC 3.81 m/uL (3.80-5.40); RDW 15.7 % (11.5-15.5); WBC 5.1 k/uL (3.8-10.6)
[2021-10-18 12:39] LABS: ALT 15 U/L (4-34); AST 22 U/L (14-36); African American GFR (CKD) >90 (>60 ml/min/1.73 sqM); Albumin 3.9 g/dL (3.5-5.0); Alkaline Phosphatase 52 U/L (38-126); Amylase 62 U/L (30-110); Anion Gap 8 mmol/L; Blood Urea Nitrogen 12 mg/dL (7-17); Calcium 8.7 mg/dL (8.4-10.2); Carbon Dioxide 24 mmol/L (22-30); Chloride 108 mmol/L (98-107); Glucose 85 mg/dL (74-99); Lipase 101 U/L (23-300); Non-African American GFR(CKD) 84 (>60 ml/min/1.73 sqM); Potassium 4.6 mmol/L (3.5-5.1); Sodium 140 mmol/L (137-145); Total Bilirubin 0.1 mg/dL (0.2-1.3); Total Protein 6.5 g/dL (6.3-8.2)
--- NOTE | 2021-10-18 12:43 | XR ---
EXAMINATION TYPE: XR chest 2V DATE OF EXAM: 10/18/2021 12:23 PM COMPARISON: Multiple radiographs, with the most recent on 01/14/2021. TECHNIQUE: XR chest 2V Frontal and lateral views of the chest. CLINICAL INDICATION:Female, 46 years old with history of shortness of breath; FINDINGS: Lungs/Pleura: There is no evidence of pleural effusion, focal consolidation, or pneumothorax. Pulmonary vascularity: Unremarkable. Heart/mediastinum: Cardiomediastinal silhouette is unremarkable. Musculoskeletal: No acute osseous pathology. IMPRESSION: No acute cardiopulmonary disease/process.
[2021-10-18 13:03] LABS: Partial Thromboplastin Time 23.9 sec (22.0-30.0); Prothrombin Time 10.7 sec (9.0-12.0)
[2021-10-18] MEDS ORDERED: ACETAMINOPHEN TAB 500 MG TAB PO STA (13:23)
--- NOTE | 2021-10-18 13:40 | CT ---
EXAMINATION TYPE: CT abdomen pelvis w con CT DLP: 872.2 mGycm, Automated exposure control for dose reduction was used. DATE OF EXAM: 10/18/2021 12:48 PM COMPARISON: CT abdomen pelvis most recent from 11/26/2016 02/07/2020 CLINICAL INDICATION:Female, 46 years old with history of abdominal pain; history of bowel obstruction and colitis TECHNIQUE: Standard CT of the abdomen and pelvis following the administration of 100 cc of Isovue 3 00 IV contrast material. Coronal and sagittal reformats were performed. FINDINGS: LOWER CHEST: Unremarkable ABDOMEN LIVER: Unremarkable GALLBLADDER AND BILE DUCTS: The gallbladder is surgically absent. PANCREAS: Unremarkable. SPLEEN: Unremarkable. ADRENAL GLANDS: Unremarkable. KIDNEYS AND URETERS: No evidence of hydronephrosis or renal calculus. The ureters are unremarkable. PELVIS BLADDER: Unremarkable REPRODUCTIVE: Unremarkable. ABDOMEN & PELVIS STOMACH AND BOWEL: Postsurgical changes of the gastric lumen. No evidence of bowel obstruction. Posts urgical changes of the small bowel and rectum. Similar ectasia of the small bowel at the anastomotic site. No bowel wall thickening identified. PERITONEUM: No evidence of pneumoperitoneum or free fluid. VASCULATURE: No evidence of aortic aneurysm. MUSCULOSKELETAL: No acute osseous abnormalities. LYMPH NODES: No gross evidence for lymphadenopathy. SOFT TISSUE/ABDOMINAL WALL: Ventral wall fat-containing hernia measuring 3 mm at the neck. IMPRESSION: 1. Postsurgical changes of the large and small bowel without evidence of bowel obstruction or acute process. 2. Ventral fat-containing hernia. 3. Surgical changes of gastric lumen.
[2021-10-18] MEDS ORDERED: MORPHINE SULFATE 2 MG/ML SYRINGE IVP STA (13:51)
--- NOTE | 2021-10-18 14:48 | ED ---
Abdominal Pain HPI - General Chief Complaint: Abdominal Pain Stated Complaint: abd pain Time Seen by Provider: 10/18/21 11:53 Source: patient Mode of arrival: ambulatory Limitations: no limitations - History of Present Illness Initial Comments: Patient is a 46-year-old female presenting with chief complaint of abdominal pain. Patient has been having bilateral lower quadrant abdominal pain for the last 3 days. She states it feels like a gas-related pain, as she admits to a lot of bloating, and pain relief after passing gas. She has had an issue like this in the past before. Patient had a colon resection in June, and wanted to ensure that this was not a complication from the surgery. She denies any nausea, vomiting, diarrhea. Denies any chest pain or shortness of breath. Denies any dysuria, hematuria, urgency, frequency. No flank pain. No fever or chills. No diarrhea, constipation, melena, hematochezia.. - Related Data Home Medications Medication Instructions Recorded Confirmed busPIRone HCL 10 mg PO BID 11/29/19 10/18/21 Estrogen,Con/M-Progest Acet 1 tab PO Q48H 01/14/21 10/18/21 [Prempro 0.625-2.5 mg Tablet] Estrogens, Conjugated [Premarin] 0.3 mg PO Q48H 10/18/21 10/18/21 FLUoxetine HCL [PROzac] 10 mg PO DAILY 10/18/21 10/18/21 buPROPion XL [Wellbutrin XL] 150 mg PO DAILY 10/18/21 10/18/21 Previous Rx's Medication Instructions Recorded Acetaminophen Tab [Tylenol Tab] 1,000 mg PO Q6HR PRN #30 tablet 06/28/21 Simethicone [Gas-X] 125 mg PO AC-TID PRN #30 capsule 06/28/21 Dicyclomine [Bentyl] 20 mg PO QID PRN #10 tablet 10/18/21 Allergies Allergy/AdvReac Type Severity Reaction Status Date / Time cephalexin monohydrate Allergy Rash/Hives Verified 10/18/21 13:48 [From Keflex] erythromycin base Allergy Rash/Hives Verified 10/18/21 13:48 [Erythromycin Base] metoclopramide HCl Allergy Rash/Hives Verified 10/18/21 13:48 [From Reglan] ibuprofen AdvReac Nausea & Verified 10/18/21 13:48 Vomiting trazodone AdvReac night Verified 10/18/21 13:48 terrors Review of Systems ROS Statement: Those systems with pertinent positive or pertinent negative responses have been documented in the HPI. ROS Other: All systems not noted in ROS Statement are negative. Past Medical History Past Medical History: Asthma, Seizure Disorder Additional Past Medical History / Comment(s): colitis, asthma as a child, hx of ruptured gallbladder with + hepatitis c, anemia., Gastric Bypass (2011). States having vomiting, stomach pains and loose stools. last seizure 2014. History of Any Multi-Drug Resistant Organisms: None Reported Past Surgical History: Adenoidectomy, Appendectomy, Bariatric Surgery, Cholecystectomy, Hysterectomy, Tonsillectomy, Tubal Ligation, Uterine Ablation Additional Past Surgical History / Comment(s): ovarian cyst removal, Gastric bypass (2011) D&C , ovaries/fallopian tubes removed Past Anesthesia/Blood Transfusion Reactions: Motion Sickness, Postoperative Nausea & Vomiting (PONV) Additional Past Anesthesia/Blood Transfusion Reaction / Comment(s): HX OF BLOOD TRANSFUSION - NO REACTION Past Psychological History: Anxiety, Depression Smoking Status: Former smoker Past Alcohol Use History: None Reported Past Drug Use History: None Reported - Past Family History Mother Family Medical History: Cancer Additional Family Medical History / Comment(s): endometrial and breast cancer Father Family Medical History: Cancer Additional Family Medical History / Comment(s): esophageal cancer General Exam Limitations: no limitations General appearance: alert, in no apparent distress Head exam: Present: atraumatic, normocephalic, normal inspection Eye exam: Present: normal appearance, EOMI. Absent: scleral icterus Neck exam: Present: normal inspection Respiratory exam: Present: normal lung sounds bilaterally. Absent: respiratory distress, wheezes, rales, rhonchi, stridor Cardiovascular Exam: Present: regular rate, normal rhythm, normal heart sounds. Absent: systolic murmur, diastolic murmur, rubs, gallop, clicks GI/Abdominal exam: Present: soft, tenderness (Some tenderness to the bilateral lower quadrants), normal bowel sounds. Absent: distended, guarding, rebound, rigid Back exam: Present: normal inspection. Absent: CVA tenderness (R), CVA tenderness (L) Neurological exam: Present: alert, oriented X3, CN II-XII intact Psychiatric exam: Present: normal affect, normal mood Skin exam: Present: warm, dry, intact, normal color. Absent: rash Course Vital Signs 10/18/21 10/18/21 11:35 14:56 Temperature 98.5 F 98.8 F Pulse Rate 79 78 Respiratory 16 18 Rate Blood Pressure 95/74 100/64 O2 Sat by Pulse 100 99 Oximetry Medical Decision Making - Medical Decision Making Patient is a 46-year-old female presenting with chief complaint of abdominal pain. Located in the bilateral lower quadrants, patient states he feels related to gas production. On examination she is somewhat tender to the bilateral lower quadrants. Normal bowel sounds. No CVA tenderness. Lab work is grossly unremarkable. EKG is unremarkable. Chest x-ray is negative. CT of the abdomen and pelvis with contrast is negative. Patient was advised to continue taking Gas-X, and provided with a prescription for Bentyl. Follow-up with PCP this week. Report back to ER if any new or worsening symptoms. Discussed return parameters alarm symptoms. Answered all questions. Patient conveyed verbal understanding and agreed to the plan. I discussed this case with my attending Dr. Loco. - Lab Data Result diagrams: 10/18/21 12:09 10/18/21 12:09 Lab Results 10/18/21 10/18/21 10/18/21 Range/Units 12:09 12:09 12:09 WBC 5.1 (3.8-10.6) k/uL RBC 3.81 (3.80-5.40) m/uL Hgb 10.9 L (11.4-16.0) gm/dL Hct 35.6 (34.0-46.0) % MCV 93.5 (80.0-100.0) fL MCH 28.5 (25.0-35.0) pg MCHC 30.5 L (31.0-37.0) g/dL RDW 15.7 H (11.5-15.5) % Plt Count 232 (150-450) k/uL MPV 9.1 Neutrophils % 56 % Lymphocytes % 32 % Monocytes % 5 % Eosinophils % 4 % Basophils % 0 % Neutrophils # 2.8 (1.3-7.7) k/uL Lymphocytes # 1.6 (1.0-4.8) k/uL Monocytes # 0.3 (0-1.0) k/uL Eosinophils # 0.2 (0-0.7) k/uL Basophils # 0.0 (0-0.2) k/uL Hypochromasia Moderate PT 10.7 (9.0-12.0) sec INR 1.0 (<1.2) APTT 23.9 (22.0-30.0) sec Sodium 140 (137-145) mmol/L Potassium 4.6 (3.5-5.1) mmol/L Chloride 108 H (98-107) mmol/L Carbon Dioxide 24 (22-30) mmol/L Anion Gap 8 mmol/L BUN 12 (7-17) mg/dL Creatinine 0.84 (0.52-1.04) mg/dL Est GFR (CKD-EPI)AfAm >90 (>60 ml/min/1.73 sqM) Est GFR (CKD-EPI)NonAf 84 (>60 ml/min/1.73 sqM) Glucose 85 (74-99) mg/dL Plasma Lactic Acid Will (0.7-2.0) mmol/L Calcium 8.7 (8.4-10.2) mg/dL Total Bilirubin 0.1 L (0.2-1.3) mg/dL AST 22 (14-36) U/L ALT 15 (4-34) U/L Alkaline Phosphatase 52 (38-126) U/L Troponin I (0.000-0.034) ng/mL Total Protein 6.5 (6.3-8.2) g/dL Albumin 3.9 (3.5-5.0) g/dL Amylase 62 (30-110) U/L Lipase 101 (23-300) U/L 10/18/21 10/18/21 Range/Units 12:09 12:09 WBC (3.8-10.6) k/uL RBC (3.80-5.40) m/uL Hgb (11.4-16.0) gm/dL Hct (34.0-46.0) % MCV (80.0-100.0) fL MCH (25.0-35.0) pg MCHC (31.0-37.0) g/dL RDW (11.5-15.5) % Plt Count (150-450) k/uL MPV Neutrophils % % Lymphocytes % % Monocytes % % Eosinophils % % Basophils % % Neutrophils # (1.3-7.7) k/uL Lymphocytes # (1.0-4.8) k/uL Monocytes # (0-1.0) k/uL Eosinophils # (0-0.7) k/uL Basophils # (0-0.2) k/uL Hypochromasia PT (9.0-12.0) sec INR (<1.2) APTT (22.0-30.0) sec Sodium (137-145) mmol/L Potassium (3.5-5.1) mmol/L Chloride (98-107) mmol/L Carbon Dioxide (22-30) mmol/L Anion Gap mmol/L BUN (7-17) mg/dL Creatinine (0.52-1.04) mg/dL Est GFR (CKD-EPI)AfAm (>60 ml/min/1.73 sqM) Est GFR (CKD-EPI)NonAf (>60 ml/min/1.73 sqM) Glucose (74-99) mg/dL Plasma Lactic Acid Will 0.8 (0.7-2.0) mmol/L Calcium (8.4-10.2) mg/dL Total Bilirubin (0.2-1.3) mg/dL AST (14-36) U/L ALT (4-34) U/L Alkaline Phosphatase (38-126) U/L Troponin I <0.012 (0.000-0.034) ng/mL Total Protein (6.3-8.2) g/dL Albumin (3.5-5.0) g/dL Amylase (30-110) U/L Lipase (23-300) U/L Disposition Clinical Impression: Abdominal pain Disposition: HOME SELF-CARE Condition: Good Instructions (If sedation given, give patient instructions): Abdominal Pain (ED) Additional Instructions: Follow-up with PCP on Wednesday. Report back to ER if any worsening symptoms. Prescriptions: Dicyclomine [Bentyl] 20 mg PO QID PRN #10 tablet PRN Reason: Pain Is patient prescribed a controlled substance at d/c from ED?: No Referrals: Hayder Cabrera MD [Primary Care Provider] - 10/20/21 Time of Disposition: 14:48
[2021-10-18 14:58] VITALS: BP 100/64; PULSE 78; RESP 18; TEMP 98.8
== END 2021-10-18 14:57 | disposition home or self-care (01) ==
LOC: EC 11:27
DX: R10.31 Right lower quadrant pain (principal); R10.32 Left lower quadrant pain; J45.909 Unspecified asthma, uncomplicated; Z88.8 Allergy status to other drugs, medicaments and biological substances; Z88.1 Allergy status to other antibiotic agents; Z88.6 Allergy status to analgesic agent; Z90.49 Acquired absence of other specified parts of digestive tract; Z87.891 Personal history of nicotine dependence
CPT/HCPCS: 36415; 93005; 80053; 82150; 83605; 83690; 84484; 85025; 85610; 85730; 71046; 74177; 99284; 96374; 96375; 96361; J2270; J1885; Q9967

== ENCOUNTER → 2021-12-31 | Outpatient (CLI) | payer BC ==
[2021-12-31 15:25] VITALS: BP 116/65; PULSE 62; TEMP 98.6; BMI 27.2
--- NOTE | 2021-12-31 15:47 | P.BASOAP ---
Subjective Progress Note Date: 12/31/21 Panniculitis. Visit eligibility services representative. REcommend Nystatin powder since 2017 for treatment. Objective - Vital Signs Vital signs: Vital Signs Temp 98.6 F 12/31/21 15:17 Pulse 62 12/31/21 15:17 Resp BP 116/65 12/31/21 15:17 Pulse Ox FiO2 Intake & Output 12/30/21 12/31/21 12/31/21 18:59 06:59 18:59 Weight 76.657 kg Assessment/Plan Plan: Date: 12/31/21 Initial Weight: 77.564 kg Initial BMI: 27.6 Current Weight: 76.657 kg Current BMI: 27.2 Type of Surgery: Total Volume in Band: Previous Volume: Volume Removed: Volume Added: Band Size:
== END | disposition home or self-care (01) ==
LOC: BARWHC3 14:16
PROVIDERS: ATTEND Surgery Plastic and Reconstructive Surgery
DX: M79.3 Panniculitis, unspecified (principal)
CPT/HCPCS: 99211

== ENCOUNTER → 2022-02-04 | Outpatient (CLI) | payer BC ==
--- NOTE | 2022-02-04 13:48 | P.BASOAP ---
Subjective Progress Note Date: 02/04/22 She reports resolved diarrhea and abdominal pain. She comes in with panniculitis. Nystatin prescribed. She is pending to see the manager of housekeeping for pannus. She has been treated in the past for panniculitis for 2 years and treatment. She reports chronic lower back pain from her skin. SHe reports trouble with grooming and wearing a brace. Pannus over 6 cm, grade 3/4 panniculus. Recommend panniculectomy. She has to wear chronic panniculectomy. SHe has an abdominal wall hernia with abdominal wall reconstruction and loss of domain. 8 cm x 15 cm. Objective - Vital Signs Vital signs: Vital Signs Temp 98.6 F 02/04/22 13:16 Pulse 92 02/04/22 13:16 Resp BP 112/78 02/04/22 13:16 Pulse Ox FiO2 Intake & Output 02/03/22 02/04/22 02/04/22 18:59 06:59 18:59 Weight 75.75 kg Assessment/Plan Plan: Date: 02/04/22 Initial Weight: 77.564 kg Initial BMI: 27.6 Current Weight: 75.75 kg Current BMI: 26.9 Type of Surgery: Total Volume in Band: Previous Volume: Volume Removed: Volume Added: Band Size:
[2022-02-04 15:15] VITALS: BP 112/78; PULSE 92; TEMP 98.6; BMI 26.9
== END | disposition home or self-care (01) ==
LOC: BARWHC3 12:44
PROVIDERS: ATTEND Surgery Plastic and Reconstructive Surgery
DX: M79.3 Panniculitis, unspecified (principal)
CPT/HCPCS: 99211

== ENCOUNTER → 2022-04-22 | Outpatient (CLI) | payer BC ==
[2022-04-22 18:44] LABS: Basophils # (A) 0.04 X 10*3/uL (0.00-0.10); Eosinophils # (A) 0.29 X 10*3/uL (0.04-0.35); Eosinophils % (A) 7.1 %; HCT 37.6 % (37.2-46.3); HGB 11.6 g/dL (12.0-15.0); Immature Grans, Automated 0 %; Lymphocytes # (A) 1.74 X 10*3/uL (0.90-5.00); Lymphocytes % (A) 42.4 %; MCH 29.2 pg (27.0-32.0); MCHC 30.9 g/dL (32.0-37.0); MCV 94.7 fL (80.0-97.0); Mean Platelet Volume 12.8 fL (9.5-12.2); Monocytes # (A) 0.31 X 10*3/uL (0.20-1.00); Monocytes % (A) 7.6 %; NRBC Per 100 WBC 0 /100 WBCS (0.0-0.0); Neutrophils # (A) 1.72 X 10*3/uL (1.80-7.70); Neutrophils % (A) 41.9 %; Platelet Count 190 X 10*3/uL (140-440); RBC 3.97 X 10*6/uL (4.10-5.20); RDW 17.5 % (11.5-14.5)
[2022-04-22 20:19] LABS: African American GFR (CKD) 90.2 (60.0-200.0); Albumin 4.1 g/dL (3.8-4.9); Albumin/Globulin Ratio 1.61 (1.60-3.17); Anion Gap 8.8 mmol/L (10.00-18.00); BUN/Creat Ratio 15.52 Ratio (12.00-20.00); Blood Urea Nitrogen 13.8 mg/dL (9.0-27.0); Calcium 9.2 mg/dL (8.7-10.3); Carbon Dioxide 25.4 mmol/L (20.0-27.5); Globulin 2.5 g/dL (1.6-3.3); Non-African American GFR(CKD) 77.8 (60.0-200.0); Potassium 5.2 mmol/L (3.5-5.5); Total Bilirubin 0.2 mg/dL (0.30-1.20); Total Protein 6.6 g/dL (6.2-8.2)
== END | disposition home or self-care (01) ==
LOC: LABPAT 11:08
PROVIDERS: ATTEND Surgery Plastic and Reconstructive Surgery
DX: Z01.812 Encounter for preprocedural laboratory examination (principal)
CPT/HCPCS: 80053; 85025

== ENCOUNTER 2022-05-04 12:31 | Observation (INO) | payer BC ==
[~2022-05-04 12:31] MED LIST changes: -ACETAMINOPHEN TAB 500 MG TAB PO STA; -CLINDAMYCIN 900 MG in DEXTROSE 5% IN WATER 50 ML IVPB PRN; -GABAPENTIN 300 MG CAP PO STA; -LACTATED RINGERS 1,000 ML IV SCH; +LIDOCAINE 1% (10MG/ML) FOR IV START INTRADERMA PRN; -ONDANSETRON 4 MG/2 ML VIAL IVP ONE; -SCOPOLAMINE 1.5MG/72HR PATCH TRANSDERM ONE; -SCOPOLAMINE 1.5MG/72HR PATCH TRANSDERM STA
--- NOTE | 2022-05-04 12:33 | P.GSHP ---
History of Present Illness H&P Date: 05/04/22 CHIEF COMPLAINT: Panniculitis HISTORY OF PRESENT ILLNESS: The patient is a 46-year-old female presents with symptomatic panniculus with panniculitis and lower back pain. She presents today for surgical excision of her pannus. PAST MEDICAL HISTORY: 1. Morbid obesity due to excess calories 2. Panniculitis PAST SURGICAL HISTORY: 1. Status post gastric bypass HOME MEDICATIONS: ALLERGIES: SOCIAL HISTORY: No past tobacco use. FAMILY HISTORY: No family history of ulcerative colitis disease or Crohn's disease. Family history of morbid obesity. No lupus in the family. No reports of stomach or esophageal cancer. REVIEW OF ORGAN SYSTEMS: CONSTITUTIONAL: At height of 5 feet 6 inches. HEENT: Denies any active troubles with vision or hearing. No troubles with swallowing. ENDOCRINE: No diabetes. Has hypothyroidism. CARDIOVASCULAR: No reports of palpitations or heart attacks or chest pain. RESPIRATORY: Has daytime somnolence. GI: Denies any bright red blood per rectum. No diarrhea. Has constipation. MUSCULOSKELETAL: Has lower back pain and joint pain. Has osteoarthritis of the knees and hips. NEURO: No headaches. No seizure disorders. PSYCH: Has depression. No suicidal ideation. Has anxiety. RHEUMATOLOGIC: No lupus. No rheumatoid arthritis. HEMATOLOGIC: Denies any abnormal bleeding or bruising. No personal history of DVTs. SKIN: No rash. No skin cancer. PHYSICAL EXAM: VITAL SIGNS: Height 5 foot 6 inches. BMI 26.6 GENERAL: Well-developed in no acute distress. HEENT: No scleral icterus. Extraocular movements grossly intact. Hears conversational speech. No nasal drainage. NECK: Supple without lymphadenopathy. CHEST: Nonlabored respirations with equal bilateral excursions. CARDIOVASCULAR: Regular rate and regular rhythm. Distal 2+ pulses. ABDOMEN: Obese, soft, nontender, nondistended. Moderate panniculus, grade 3+ MUSCULOSKELETAL: No clubbing, cyanosis. Gross strength 5/5 distal lower extremities. NEURO: No focal or lateralizing signs. Cranial nerves 2 through 12 grossly within normal limits. PSYCH: Appropriate affect. Alert and oriented to person, place and time. SKIN: Good skin turgor. Well perfused. ASSESSMENT: 1. Panniculitis 2. Status post gastric bypass PLAN: 1. Panniculectomy described inpatient hospitalization. Past Medical History Past Medical History: Asthma, Seizure Disorder Additional Past Medical History / Comment(s): asthma as a child, hx of ruptured gallbladder with + hepatitis c, anemia., Gastric Bypass (2011). mild arthritis in rt hand. hanging skin from wt loss causing pain- no skin issues at this time. last seizure 2014. History of Any Multi-Drug Resistant Organisms: None Reported Past Surgical History: Adenoidectomy, Appendectomy, Bariatric Surgery, Bowel Resection, Cholecystectomy, Tonsillectomy, Tubal Ligation, Uterine Ablation Additional Past Surgical History / Comment(s): ovarian cyst removal, Gastric bypass (2011) D&C , ovaries/fallopian tubes removed Past Anesthesia/Blood Transfusion Reactions: Motion Sickness, Postoperative Nausea & Vomiting (PONV) Additional Past Anesthesia/Blood Transfusion Reaction / Comment(s): HX OF BLOOD TRANSFUSION - NO REACTION Smoking Status: Former smoker - Past Family History Mother Family Medical History: Cancer Additional Family Medical History / Comment(s): endometrial and breast cancer Father Family Medical History: Cancer Additional Family Medical History / Comment(s): esophageal cancer Medications and Allergies Home Medications Medication Instructions Recorded Confirmed Type Estrogens, Conjugated [Premarin] 0.3 mg PO DAILY 10/18/21 04/30/22 History FLUoxetine HCL [PROzac] 10 mg PO DAILY 10/18/21 04/30/22 History Multivitamins, Thera [Multivitamin 1 tab PO DAILY 12/31/21 04/30/22 History (formulary)] Nystatin 100,000 Unit/gm Powd 1 applic TOPICAL BID #60 gm 02/04/22 04/30/22 Rx [Mycostatin Powder] Ferrous Sulfate [Iron] 325 mg PO Q48H 04/30/22 04/30/22 History Allergies Allergy/AdvReac Type Severity Reaction Status Date / Time cephalexin monohydrate Allergy Rash/Hives Verified 04/30/22 10:11 [From Keflex] erythromycin base Allergy Rash/Hives Verified 04/30/22 10:11 [Erythromycin Base] metoclopramide HCl Allergy Rash/Hives Verified 04/30/22 10:11 [From Reglan] ibuprofen AdvReac Nausea & Verified 04/30/22 10:11 Vomiting trazodone AdvReac night Verified 04/30/22 10:11 lauren
[2022-05-04] MEDS: LACTATED RINGERS 1,000 ML IV SCH (12:40)
[2022-05-04] MEDS: ONDANSETRON 4 MG/2 ML VIAL IVP ONE ×2 (12:51→19:44)
[2022-05-04] MEDS ORDERED: SCOPOLAMINE 1 MG/72 HR PATCH TRANSDERM ONE (13:05)
[2022-05-04] MEDS ORDERED: MIDAZOLAM 2 MG/2 ML VIAL IVP ONE (13:31)
[2022-05-04] MEDS ORDERED: fentaNYL (PF) 50 MCG/ML 2 ML AMP IVP ONE (13:31)
--- NOTE | 2022-05-04 14:16 | P.ANPRN ---
Procedure Note - Anesthesia - Nerve Block Performed Bilateral Transversus Abdominis Single Time Out Performed: Yes Date of Procedure: 05/04/22 Location of Patient: PreOp Indication: Acute Post-Operative Pain, Dx/Pain Location (abdominal pain), Requested by Surgeon Specifically requested for management of pain by DrAndrea: Echo Nickerson Sedation Type: Sedate with meaningful contact maintained Preparation: Sterile Prep Position: Supine Catheter: None Needle Types: Pajunk Needle Gauge: 21 (100 mm) Ultrasound used to visualize needle placement: Yes Ultrasound used to observe medication spread: Yes Injectate: 0.5% Ropivacaine (see comment for volume) (20 cc + 10 cc of saline on each side) Blood Aspirated: No Pain Paresthesia on Injection Noted: No Resistance on Injection: Normal Image Stored and Saved: Yes Events: Uneventful and Well Tolerated
[2022-05-04] MEDS ORDERED: SUCCINYLCHOLINE CHLORIDE 200 MG/10 ML VIAL IV ONE (16:25)
[2022-05-04] MEDS ORDERED: LIDOCAINE 2% INJ 20 MG/ML (2 ML VIAL) ONE (16:25)
[2022-05-04] MEDS ORDERED: ROCURONIUM 10 MG/ML (5 ML VIAL) IV ONE (16:25)
[2022-05-04] MEDS ORDERED: HYDROmorphone (PF) 1 MG/ML ONE (16:25)
[2022-05-04] MEDS ORDERED: ROPIVACAINE 5 MG/ML 30 ML VIAL ONE (16:25)
[2022-05-04] MEDS ORDERED: PROPOFOL 10 MG/ML 20 ML VIAL IV ONE (16:25)
[2022-05-04] MEDS ORDERED: fentaNYL (PF) 50 MCG/ML 2 ML AMP ONE (16:25)
[2022-05-04] MEDS ORDERED: SODIUM CHLORIDE 0.9% (PF) 10 ML VIAL ONE (16:25)
[2022-05-04] MEDS ORDERED: MIDAZOLAM 2 MG/2 ML VIAL ONE (16:25)
[2022-05-04] MEDS ORDERED: LACTATED RINGERS 1,000 ML IV ONE (17:00)
[2022-05-04] MEDS: HYDROmorphone 0.5 MG/0.5 ML SYRINGE IVP PRN ×4 (19:44→20:16)
[2022-05-04] MEDS ORDERED: ONDANSETRON 4 MG/2 ML VIAL IVP PRN (19:55)
[2022-05-04] MEDS ORDERED: NALOXONE 0.4 MG/ML 1 ML VIAL IV PRN ×2 (19:55→19:59)
[2022-05-04] MEDS ORDERED: HYDROmorphone 1 MG/ML 1 ML SYRINGE IVP PRN (19:55)
--- NOTE | 2022-05-04 20:03 | P.OP ---
Date of Procedure: 05/04/22 Description of Procedure: SURGEON: STEPHANIE PATEL MD PREOPERATIVE DIAGNOSES: 1. Panniculitis 2. Adiposus panniculus. 3. Status post gastric bypass POSTOPERATIVE DIAGNOSES: 1. Panniculitis 2. Adiposus panniculus. 3. Status post gastric bypass 4. Abdominal ventral hernia, 25 x 10 cm, unrelated to prior bariatric surgery. OPERATION: 1. Panniculectomy. 2. Primary repair of ventral hernia 25 x 10 cm cm without mesh. 3. Abdominal wall reconstruction with myocutaneous bilateral flap advancement. ANESTHESIA: General, regional block ESTIMATED BLOOD LOSS: 250 mL SPECIMENS REMOVED: Pannus 5.1 pounds. COMPLICATIONS: None. CONDITION: Stable. DRAINS: Two #19 Joseph drains below abdominal flap extending through the pubis. OPERATIVE FINDINGS: 1. Pannus weighing 5.12 pounds, excised. 2. Abdominal ventral hernia of 25 x 10 cm along the midline repaired primarily using fascial imbrication. INDICATIONS: The patient is a 46-year-old female with a history of massive weight loss over 150 pounds over 2 years. Despite medical therapy with prescription powders such as Nystatin over 1 year, she has developed severe medical refractory panniculitis including chronic lower back pain. Her body mass index has been reduced to 27.6. Given her clinical symptoms, including massive weight loss, she elected for surgical intervention with a panniculectomy. Benefits and risks of the procedure including bleeding, infection, risk of flap failure were described at length. Informed consent was obtained. DESCRIPTION: In the preanesthesia care unit the patient was marked with an indelible marker. Additionally, regional block was placed per anesthesia She had also been given heparin subcutaneously. The patient was brought into the operating room and laid in supine position. After general induction, a Tillman catheter was placed. The abdomen was then prepped and draped in standard sterile fashion using ChloraPrep. The skin was prepped as far laterally to the back, inferiorly to the upper thighs and superiorly to above the bilateral breasts. A timeout protocol was confirmed with the surgical team regarding patient's name, procedure to be performed, including preoperative medications. She had received Ancef 2 grams IV antibiotics. Once the time-out protocol was confirmed with the surgical team, the patient was re-marked with indelible marker whereby the midline of the xiphoid to the mons pubis was marked. The anterior/superior iliac spine along the bilateral hips was also marked. Approximately 8 cm above the pubis commissure a transverse incision was made for the inferior portion of the flap. Using a #10 blade, the incision was taken from the midline laterally to above the anterior/superior iliac spine, initially on the left side of the patient and then on the right side of the patient. Electro-Bovie cautery was used to control for hemostasis. The dissection was t aken down to the level of the fascia. Landmarks used were the xiphoid process as well as the bilateral costal margins for the superior margin. Care was taken to avoid any creation of dog ears during the dissection. Once hemostasis was checked, a large ventral hernia fascial defect of 10 width x 25 cm length was identified. During this dissection, the umbilicus was truncated at its fascial insertion. Bilateral myocutaneous flap advancement was performed to close the large defect of 10 x 25 cm using the rectus muscle. After the flaps were raised, the midline was re-marked again from the xiphoid to the pubis commissure. Fascial imbrication was proposed for primary repair and to reinforce the bilateral myocutaneous flap advancement. Starting from the xiphoid process, the rectus muscle was overlapped in the bilateral myocutaneous flap advancement using #2 Ethibond. The ventral hernia defect was completely repaired and closed. Hemostasis was once again checked with electro-Bovie cautery and all defects were addressed. Attention was now brought to closure of the flap. Using stainless steel skin yaneth, the midline was once again marked of the upper flap as well as the pubic commissure. The patient was placed in a flexed position of approximately 30 degrees at the hips. The pannus was extended inferiorly to the feet. The upper flap was created once the excess skin was excised. Again care was taken to avoid any dog ears along the lateral aspect of the incisions. Once excised, the pannus weighed approximately 5.12 pounds. The upper and lower flaps were reapproximated at the midline and then laterally to the skin with skin yaneth. Once reapproximated, the skin was closed in layers using 0 Vicryl for the superficial fascial system followed by running 3-0 Monocryl for the deep dermis and finally 4-0 Monocryl in a running subcuticular fashion. Prior to skin closure, two round #19 Joseph drains were placed underneath the flap and brought out just inferior to the incision along the pubis. Drain stitch using 2-0 nylon was placed. Once the incision was closed, bulb suction was attached. Hemostasis was checked. Exofin tape with glue including Optifoam dressing was placed. At the end of the procedure, the needle, sponge and instrument count was verified correct. The patient was then transferred to a hospital bed in a beach chair position. An abdominal binder was placed and marked. The patient was taken to the postanesthesia care unit in stable condition, awake and extubated.
[2022-05-04] MEDS ORDERED: diphenhydrAMINE 50 MG/ML 1 ML VIAL IVP ONE (20:15)
[2022-05-04] MEDS: ACETAMINOPHEN IV (For NPO) 1,000 MG in EMPTY BAG 1 BAG IVPB SCH (20:34)
[2022-05-04] MEDS: ALBUTEROL NEBULIZED 2.5 MG/3 ML INHALATION SCH (21:20)
[2022-05-04] MEDS: 0.9% NACL WITH KCL 20 MEQ/L 1,000 ML IV SCH (21:26)
[2022-05-04] MEDS: fentaNYL PCA 500 MCG/50 ML BAG IV PRN (22:49)
[2022-05-04] MEDS ORDERED: diphenhydrAMINE 50 MG/ML 1 ML VIAL IVP PRN (23:09)
[2022-05-05] MEDS: ACETAMINOPHEN IV (For NPO) 1,000 MG in EMPTY BAG 1 BAG IVPB SCH ×2 (04:03→12:03)
[2022-05-05] MEDS: 0.9% NACL WITH KCL 20 MEQ/L 1,000 ML IV SCH (04:04)
[2022-05-05] MEDS: LACTATED RINGERS 1,000 ML IV SCH (04:09)
[2022-05-05] MEDS: fentaNYL PCA 500 MCG/50 ML BAG IV PRN ×3 (05:00→12:22)
[2022-05-05] MEDS ORDERED: 0.9% NACL WITH KCL 20 MEQ/L 1,000 ML IV SCH (08:00)
[2022-05-05] MEDS ORDERED: PANTOPRAZOLE 40 MG/10 ML VIAL IV SCH (09:00)
[2022-05-05] MEDS ORDERED: ENOXAPARIN 30 MG/0.3 ML SYRINGE SQ SCH (09:00)
[2022-05-05 09:06] LABS: Basophils # (A) 0.03 X 10*3/uL (0.00-0.10); Basophils % (A) 0.4 %; Eosinophils # (A) 0.02 X 10*3/uL (0.04-0.35); Eosinophils % (A) 0.3 %; HCT 32.8 % (37.2-46.3); HGB 10.2 g/dL (12.0-15.0); Immature Grans, Automated 0.3 %; Lymphocytes # (A) 1.49 X 10*3/uL (0.90-5.00); MCH 29.4 pg (27.0-32.0); MCHC 31.1 g/dL (32.0-37.0); MCV 94.5 fL (80.0-97.0); Mean Platelet Volume 12.3 fL (9.5-12.2); Monocytes # (A) 0.58 X 10*3/uL (0.20-1.00); Monocytes % (A) 7.4 %; NRBC Per 100 WBC 0 /100 WBCS (0.0-0.0); Neutrophils # (A) 5.71 X 10*3/uL (1.80-7.70); Neutrophils % (A) 72.6 %; Platelet Count 210 X 10*3/uL (140-440); RBC 3.47 X 10*6/uL (4.10-5.20); RDW 17.6 % (11.5-14.5); WBC 7.85 X 10*3/uL (4.50-10.00)
[2022-05-05] MEDS: ALBUTEROL NEBULIZED 2.5 MG/3 ML INHALATION SCH ×3 (11:04→16:01)
[2022-05-05] MEDS ORDERED: SODIUM CHLORIDE 0.9% 1,000 ML IV SCH (13:45)
--- NOTE | 2022-05-05 14:52 | P.DS ---
Providers Date of admission: 05/05/22 07:16 Expected date of discharge: 05/05/22 Attending physician: Echo Nickerson Consults: 05/04/22 12:33 Consult Physician Routine Consulting Provider: [facility] Consult Reason/Comments: Regional block Do you want consulting provider notified?: Yes Primary care physician: Hayder Cabrera Hospital Course: Discharge diagnosis 1. Panniculitis 2. Adiposus panniculus. 3. Status post gastric bypass 4. Abdominal ventral hernia, 25 x 10 cm, unrelated to prior bariatric surgery. 5. Hyperkalemia likely hemolyzed. Repeat K pending. Nurse to notify myself or surgeon if K is not within the normal range Hospital course The patient is a 46-year-old female with a history of massive weight loss over 150 pounds over 2 years. Despite medical therapy with prescription powders such as Nystatin over 1 year, she has developed severe medical refractory panniculitis including chronic lower back pain. Patient is status post panniculectomy, repair of ventral hernia without mesh and Abdominal wall reconstruction with myocutaneous bilateral flap advancement. Patient reports that her pain is controlled. She is tolerating diet. She has been up and ambulating. She is having flatus. She denies any difficulty urinating. She is afebrile. She is stable for discharge. Physician Injection Specialist note has been reviewed by physician. Signing provider agrees with the documented findings, assessment, and plan of care. Patient Condition at Discharge: Stable Plan - Discharge Summary Discharge Rx Participant: No New Discharge Prescriptions: New Acetaminophen Tab [Tylenol] 1,000 mg PO Q6HR PRN #30 tablet PRN Reason: Pain Continue Nystatin 100,000 Unit/gm Powd [Mycostatin Powder] 1 applic TOPICAL BID #60 gm FLUoxetine HCL [PROzac] 10 mg PO DAILY Estrogens, Conjugated [Premarin] 0.3 mg PO DAILY Discontinued Ferrous Sulfate [Iron] 325 mg PO Q48H Multivitamins, Thera [Multivitamin (formulary)] 1 tab PO DAILY Discharge Medication List Estrogens, Conjugated [Premarin] 0.3 mg PO DAILY 10/18/21 [History] FLUoxetine HCL [PROzac] 10 mg PO DAILY 10/18/21 [History] Nystatin 100,000 Unit/gm Powd [Mycostatin Powder] 1 applic TOPICAL BID #60 gm 02/04/22 [Rx] Acetaminophen Tab [Tylenol] 1,000 mg PO Q6HR PRN #30 tablet 05/05/22 [Rx] Follow up Appointment(s)/Referral(s): FIL[facility] Visiting Nurse, [NON-STAFF] - As Needed [place], [place] [NON-STAFF] - 05/08/22 9:00 am Patient Instructions/Handouts: *Surgery [facility] - Scopalamine Patch Instructions, Carlos-Morel Drain Care (DC), Non-pharmacological Pain Management Therapies for Adults (GEN) Activity/Diet/Wound Care/Special Instructions: Wear abdominal binder at all times for comfort. No lifting over 4 pounds in 4 weeks You May shower. No bath tub soaks for two weeks Use Tylenol scheduled for the next 24-48 hours for best pain relief. Use ice along incisions for the today to prevent swelling. Keep a log of HAILY drain output and bring with you to your follow-up appointment Milk/strip drains 2-3 times a day Hold on taking vitamins until seen by surgeon Discharge Disposition: HOME SELF-CARE
[2022-05-05 14:55] LABS: African American GFR (CKD) >90 (>60 ml/min/1.73 sqM); Anion Gap 4 mmol/L; Blood Urea Nitrogen 10 mg/dL (7-17); Calcium 8.3 mg/dL (8.4-10.2); Carbon Dioxide 26 mmol/L (22-30); Chloride 108 mmol/L (98-107); Glucose 114 mg/dL (74-99); Non-African American GFR(CKD) >90 (>60 ml/min/1.73 sqM); Potassium 4.6 mmol/L (3.5-5.1); Sodium 138 mmol/L (137-145)
[2022-05-05 14:58] VITALS: BP 110/77; RESP 16; TEMP 99.7
[2022-05-05 16:11] VITALS: PULSE 76
[2022-05-05 23:41] LABS: % Iron Saturation 17.12 (12.00-45.00); Ferritin 16.2 ng/mL (10.0-291.0); Iron 64 ug/dL (50-170); Total Iron Binding Capacity 374 ug/dL (228-460)
== END 2022-05-05 16:24 | disposition home or self-care (01) ==
LOC: OR 12:31 → 4SSUR 19:40 → OR 05-05 07:16 → 4SSUR 05-05 07:16
PROVIDERS: ADMIT Surgery Plastic and Reconstructive Surgery; ATTEND Surgery Plastic and Reconstructive Surgery
DX: M79.3 Panniculitis, unspecified (principal); K43.9 Ventral hernia without obstruction or gangrene; G40.909 Epilepsy, unspecified, not intractable, without status epilepticus; M19.041 Primary osteoarthritis, right hand; G89.29 Other chronic pain; M54.50 Low back pain, unspecified; J45.909 Unspecified asthma, uncomplicated; Z79.818 Long term (current) use of other agents affecting estrogen receptors and estrogen levels; Z79.899 Other long term (current) drug therapy; Z88.1 Allergy status to other antibiotic agents; Z88.6 Allergy status to analgesic agent; Z88.8 Allergy status to other drugs, medicaments and biological substances; Z87.891 Personal history of nicotine dependence; Z98.84 Bariatric surgery status; Z86.39 Personal history of other endocrine, nutritional and metabolic disease; Z90.49 Acquired absence of other specified parts of digestive tract; Z90.79 Acquired absence of other genital organ(s); Z90.722 Acquired absence of ovaries, bilateral; Z98.890 Other specified postprocedural states; Z80.3 Family history of malignant neoplasm of breast; Z80.0 Family history of malignant neoplasm of digestive organs; Z80.49 Family history of malignant neoplasm of other genital organs
CPT/HCPCS: 15830; 15847; 94640 ×2; 97161; 97166; 81025; 64488; 88305; 80048; 82728; 83540; 83550; 84132; 85025; 49560; G0378; J2250; J0330; J1200; J1100; J0690 ×2; J2405; J3010 ×3; J1650; J1170 ×2; J2795; J0131 ×2; J2704; C9113; J2001

== ENCOUNTER 2022-05-06 13:33 | Emergency (ER) | payer BC ==
[2022-05-06 13:40] VITALS: RESP 20; TEMP 99.1
[2022-05-06] MEDS ORDERED: SODIUM CHLORIDE 0.9% 1,000 ML IV STA (13:50)
[2022-05-06] MEDS ORDERED: PANTOPRAZOLE 40 MG/10 ML VIAL IVP STA (13:50)
--- NOTE | 2022-05-06 13:53 | ED ---
General Adult HPI - General Chief complaint: Nausea/Vomiting/Diarrhea Stated complaint: Nausea,Vomiting Time Seen by Provider: 05/06/22 13:35 Source: patient, EMS, RN notes reviewed Mode of arrival: EMS Limitations: no limitations - History of Present Illness Initial comments: Patient is a pleasant 46-year-old female presenting to the emergency department with concerns with nausea vomiting. Onset of symptoms was a few days ago. Patient did have panic to be done just 2 days ago. Patient did have fever yesterday and today as well. Patient is still having some nausea and vomiting. Patient does have cough. Patient does have abdominal discomfort that is rated 6/10. Patient believes this is likely secondary to the vomiting. Patient does have history of previous volvulus and several surgeries with Dr. Ortiz. - Related Data Home Medications Medication Instructions Recorded Confirmed Estrogens, Conjugated [Premarin] 0.3 mg PO DAILY 10/18/21 05/06/22 FLUoxetine HCL [PROzac] 10 mg PO DAILY 10/18/21 05/06/22 Previous Rx's Medication Instructions Recorded Acetaminophen Tab [Tylenol] 1,000 mg PO Q6HR PRN #30 tablet 05/05/22 Ondansetron Odt [Zofran Odt] 4 mg PO Q8HR PRN #10 tab 05/06/22 Simethicone [Simethicone Chew] 80 mg PO BID #15 tab 05/06/22 Allergies Allergy/AdvReac Type Severity Reaction Status Date / Time cephalexin monohydrate Allergy Rash/Hives Verified 05/06/22 14:56 [From Keflex] erythromycin base Allergy Rash/Hives Verified 05/06/22 14:56 [Erythromycin Base] metoclopramide HCl Allergy Rash/Hives Verified 05/06/22 14:56 [From Reglan] ibuprofen AdvReac Nausea & Verified 05/06/22 14:56 Vomiting trazodone AdvReac night Verified 05/06/22 14:56 terrors Review of Systems ROS Statement: Those systems with pertinent positive or pertinent negative responses have been documented in the HPI. ROS Other: All systems not noted in ROS Statement are negative. Constitutional: Reports: fever, chills Eyes: Denies: eye pain ENT: Denies: ear pain Respiratory: Reports: cough. Denies: dyspnea Cardiovascular: Denies: chest pain Endocrine: Reports: fatigue Gastrointestinal: Reports: abdominal pain, nausea, vomiting, other (Patient is passing gas). Denies: diarrhea, constipation Genitourinary: Denies: dysuria Musculoskeletal: Denies: back pain Skin: Denies: rash Neurological: Denies: weakness Past Medical History Past Medical History: Asthma, Seizure Disorder Additional Past Medical History / Comment(s): asthma as a child, hx of ruptured gallbladder with + hepatitis c, anemia., Gastric Bypass (2011). States having vomiting, stomach pains and loose stools. last seizure 2014. History of Any Multi-Drug Resistant Organisms: None Reported Past Surgical History: Adenoidectomy, Appendectomy, Bariatric Surgery, Bowel Resection, Cholecystectomy, Tonsillectomy, Tubal Ligation, Uterine Ablation Additional Past Surgical History / Comment(s): ovarian cyst removal, Gastric bypass (2011) D&C , ovaries/fallopian tubes removed, panniculectomy 04/2022 Past Anesthesia/Blood Transfusion Reactions: Motion Sickness, Postoperative Nausea & Vomiting (PONV) Additional Past Anesthesia/Blood Transfusion Reaction / Comment(s): HX OF BLOOD TRANSFUSION - NO REACTION Past Psychological History: Anxiety, Depression Smoking Status: Former smoker Past Alcohol Use History: None Reported Past Drug Use History: None Reported - Past Family History Mother Family Medical History: Cancer Additional Family Medical History / Comment(s): endometrial and breast cancer Father Family Medical History: Cancer Additional Family Medical History / Comment(s): esophageal cancer General Exam Limitations: no limitations General appearance: alert, in no apparent distress Head exam: Present: normocephalic Eye exam: Present: normal appearance Neck exam: Present: normal inspection Respiratory exam: Present: normal lung sounds bilaterally. Absent: respiratory distress, wheezes Cardiovascular Exam: Present: regular rate, normal rhythm Expanded Peripheral pulses: 2+: Posterior Tibialis (R), Posterior Tibialis (L) GI/Abdominal exam: Present: soft, tenderness (Moderate diffuse tenderness to palpation), guarding, normal bowel sounds. Absent: distended, rebound, rigid, pulsatile mass Extremities exam: Present: normal inspection Neurological exam: Present: alert Psychiatric exam: Present: normal affect, normal mood Skin exam: Present: normal color Course Vital Signs 05/06/22 13:36 Temperature 99.1 F Pulse Rate 96 Respiratory 20 Rate Blood Pressure 101/77 O2 Sat by Pulse 100 Oximetry Medical Decision Making - Medical Decision Making Patient reevaluated and feeling much better following Zofran and IV fluids. Case was discussed with Dr. Ortiz who is comfortable with discharge of patient. She recommends simethicone. Patient updated. - Lab Data Result diagrams: 05/06/22 14:12 05/06/22 14:12 Lab Results 05/06/22 05/06/22 05/06/22 Range/Units 14:12 14:12 14:12 WBC 7.5 (3.8-10.6) k/uL RBC 3.45 L (3.80-5.40) m/uL Hgb 10.2 L (11.4-16.0) gm/dL Hct 32.3 L (34.0-46.0) % MCV 93.8 (80.0-100.0) fL MCH 29.5 (25.0-35.0) pg MCHC 31.5 (31.0-37.0) g/dL RDW 16.2 H (11.5-15.5) % Plt Count 207 (150-450) k/uL MPV 9.1 Neutrophils % 79 % Lymphocytes % 12 % Monocytes % 4 % Eosinophils % 3 % Basophils % 0 % Neutrophils # 5.9 (1.3-7.7) k/uL Lymphocytes # 0.9 L (1.0-4.8) k/uL Monocytes # 0.3 (0-1.0) k/uL Eosinophils # 0.2 (0-0.7) k/uL Basophils # 0.0 (0-0.2) k/uL Hypochromasia Slight Anisocytosis Slight PT 10.8 (9.0-12.0) sec INR 1.0 (<1.2) APTT 26.3 (22.0-30.0) sec Sodium 136 L (137-145) mmol/L Potassium 4.2 (3.5-5.1) mmol/L Chloride 106 (98-107) mmol/L Carbon Dioxide 24 (22-30) mmol/L Anion Gap 6 mmol/L BUN 8 (7-17) mg/dL Creatinine 0.56 (0.52-1.04) mg/dL Est GFR (CKD-EPI)AfAm >90 (>60 ml/min/1.73 sqM) Est GFR (CKD-EPI)NonAf >90 (>60 ml/min/1.73 sqM) Glucose 104 H (74-99) mg/dL Calcium 8.5 (8.4-10.2) mg/dL Total Bilirubin 0.3 (0.2-1.3) mg/dL AST 44 H (14-36) U/L ALT 28 (4-34) U/L Alkaline Phosphatase 98 (38-126) U/L Total Protein 6.1 L (6.3-8.2) g/dL Albumin 3.4 L (3.5-5.0) g/dL Amylase 44 (30-110) U/L Lipase 42 (23-300) U/L Urine Color Urine Appearance (Clear) Urine pH (5.0-8.0) Ur Specific [place] (1.001-1.035) Urine Protein (Negative) Urine Glucose (UA) (Negative) Urine Ketones (Negative) Urine Blood (Negative) Urine Nitrite (Negative) Urine Bilirubin (Negative) Urine Urobilinogen (<2.0) mg/dL Ur Leukocyte Esterase (Negative) Influenza Type A (PCR) (Not Detectd) Influenza Type B (PCR) (Not Detectd) RSV (PCR) (Not Detectd) SARS-CoV-2 (PCR) (Not Detectd) 05/06/22 05/06/22 Range/Units 14:12 14:28 WBC (3.8-10.6) k/uL RBC (3.80-5.40) m/uL Hgb (11.4-16.0) gm/dL Hct (34.0-46.0) % MCV (80.0-100.0) fL MCH (25.0-35.0) pg MCHC (31.0-37.0) g/dL RDW (11.5-15.5) % Plt Count (150-450) k/uL MPV Neutrophils % % Lymphocytes % % Monocytes % % Eosinophils % % Basophils % % Neutrophils # (1.3-7.7) k/uL Lymphocytes # (1.0-4.8) k/uL Monocytes # (0-1.0) k/uL Eosinophils # (0-0.7) k/uL Basophils # (0-0.2) k/uL Hypochromasia Anisocytosis PT (9.0-12.0) sec INR (<1.2) APTT (22.0-30.0) sec Sodium (137-145) mmol/L Potassium (3.5-5.1) mmol/L Chloride (98-107) mmol/L Carbon Dioxide (22-30) mmol/L Anion Gap mmol/L BUN (7-17) mg/dL Creatinine (0.52-1.04) mg/dL Est GFR (CKD-EPI)AfAm (>60 ml/min/1.73 sqM) Est GFR (CKD-EPI)NonAf (>60 ml/min/1.73 sqM) Glucose (74-99) mg/dL Calcium (8.4-10.2) mg/dL Total Bilirubin (0.2-1.3) mg/dL AST (14-36) U/L ALT (4-34) U/L Alkaline Phosphatase (38-126) U/L Total Protein (6.3-8.2) g/dL Albumin (3.5-5.0) g/dL Amylase (30-110) U/L Lipase (23-300) U/L Urine Color Yellow Urine Appearance Clear (Clear) Urine pH 5.5 (5.0-8.0) Ur Specific [place] 1.021 (1.001-1.035) Urine Protein Trace H (Negative) Urine Glucose (UA) Negative (Negative) Urine Ketones 2+ H (Negative) Urine Blood Negative (Negative) Urine Nitrite Negative (Negative) Urine Bilirubin Negative (Negative) Urine Urobilinogen <2.0 (<2.0) mg/dL Ur Leukocyte Esterase Negative (Negative) Influenza Type A (PCR) Not Detected (Not Detectd) Influenza Type B (PCR) Not Detected (Not Detectd) RSV (PCR) Not Detected (Not Detectd) SARS-CoV-2 (PCR) Not Detected (Not Detectd) - Radiology Data Radiology results: report reviewed (Abdominal CT shows postsurgical changes.) Disposition Clinical Impression: Vomiting, Abdominal pain Disposition: HOME SELF-CARE Condition: Stable Instructions (If sedation given, give patient instructions): Abdominal Pain (ED), Acute Nausea and Vomiting (ED) Additional Instructions: Prescriptions have been sent to pharmacy. Please do follow-up with your surgeon in the next couple days for recheck. Return for increased pain, fever, persistent vomiting, not tolerating oral intake, worsening symptoms or other concerns. Prescriptions: Simethicone [Simethicone Chew] 80 mg PO BID #15 tab Ondansetron Odt [Zofran Odt] 4 mg PO Q8HR PRN #10 tab PRN Reason: Nausea Is patient prescribed a controlled substance at d/c from ED?: No Referrals: Hayder Cabrera MD [Primary Care Provider] - 1-2 days Echo Nickerson MD [STAFF PHYSICIAN] - 1-2 days Time of Disposition: 16:14
[2022-05-06] MEDS ORDERED: ONDANSETRON 4 MG/2 ML VIAL IVP STA (14:04)
[2022-05-06 14:19] LABS: Anisocytosis Slight; Basophils % (A) 0 %; Eosinophils # (A) 0.2 k/uL (0-0.7); Eosinophils % (A) 3 %; HCT 32.3 % (34.0-46.0); HGB 10.2 gm/dL (11.4-16.0); Hypochromasia Slight; Lymphocytes # (A) 0.9 k/uL (1.0-4.8); Lymphocytes % (A) 12 %; MCH 29.5 pg (25.0-35.0); MCHC 31.5 g/dL (31.0-37.0); MCV 93.8 fL (80.0-100.0); Mean Platelet Volume 9.1; Monocytes # (A) 0.3 k/uL (0-1.0); Monocytes % (A) 4 %; Neutrophils # (A) 5.9 k/uL (1.3-7.7); Neutrophils % (A) 79 %; Platelet Count 207 k/uL (150-450); RBC 3.45 m/uL (3.80-5.40); RDW 16.2 % (11.5-15.5); WBC 7.5 k/uL (3.8-10.6)
[2022-05-06] MEDS ORDERED: HYDROmorphone 0.5 MG/0.5 ML SYRINGE IVP STA ×2 (14:25→17:10)
[2022-05-06 14:31] LABS: ALT 28 U/L (4-34); AST 44 U/L (14-36); African American GFR (CKD) >90 (>60 ml/min/1.73 sqM); Albumin 3.4 g/dL (3.5-5.0); Alkaline Phosphatase 98 U/L (38-126); Amylase 44 U/L (30-110); Anion Gap 6 mmol/L; Blood Urea Nitrogen 8 mg/dL (7-17); Calcium 8.5 mg/dL (8.4-10.2); Carbon Dioxide 24 mmol/L (22-30); Chloride 106 mmol/L (98-107); Glucose 104 mg/dL (74-99); Lipase 42 U/L (23-300); Non-African American GFR(CKD) >90 (>60 ml/min/1.73 sqM); Partial Thromboplastin Time 26.3 sec (22.0-30.0); Potassium 4.2 mmol/L (3.5-5.1); Prothrombin Time 10.8 sec (9.0-12.0); Sodium 136 mmol/L (137-145); Total Bilirubin 0.3 mg/dL (0.2-1.3); Total Protein 6.1 g/dL (6.3-8.2)
[2022-05-06 14:35] LABS: Appearance,Urine Clear (Clear); Bilirubin,Urine Negative (Negative); Blood,Urine Negative (Negative); Color,Urine Yellow; Glucose,Urine (UA) Negative (Negative); Ketones,Urine 2+ (Negative); Leukocyte Esterase,Urine Negative (Negative); Nitrite,Urine Negative (Negative); PH, Urine 5.5 (5.0-8.0); Protein,Urine Trace (Negative); Specific Gravity,Urine 1.021 (1.001-1.035); Urobilinogen,Urine <2.0 mg/dL (<2.0)
--- NOTE | 2022-05-06 15:14 | CT ---
EXAMINATION TYPE: CT abdomen pelvis w con DATE OF EXAM: 05/06/2022 COMPARISON: 10/18/2021 HISTORY: abdominal pain, fever, vomiting 2 days post abdominal sx CT DLP: 887.1 mGycm CONTRAST: CT scan of the abdomen and pelvis is performed without Oral Contrast and with IV Contrast, patient in jected with 100 mL of Isovue 300. FINDINGS: LUNG BASES-: No visible nodule. No infiltrate. LIVER/GB: The gallbladder surgically absent. Postoperative prominence of the biliary tree. No spac e occupying hepatic lesion. Biliary tree is of normal caliber. PANCREAS: No inflammation. No distinct mass. SPLEEN: No splenic enlargement. No lesion seen. ADRENALS: No nodule. No thickening. KIDNEYS/BLADDER: No hydronephrosis. No nephrolithiasis. No distinct renal mass. Urinary bladder g rossly unremarkable. BOWEL: Normal appendix. Left lower quadrant bowel suture line is noted. There is no evidence for absc ess or surrounding fluid. Moderate fecal stasis is seen. There appears to be mild ileus. GENITAL ORGANS: No gross abnormality. LYMPH NODES: No greater than 1cm abdominal or pelvic lymph nodes are appreciated. AORTA: No significant abnormality. OSSEOUS STRUCTURES: No significant abnormality is seen. OTHER: Anterior abdominal wall demonstrates surgical drains. There is a fat attenuation with foci of air however no drainable abscess is seen. IMPRESSION: 1. Anterior abdominal wall demonstrates surgical drains. There is a fat attenuation with foci of air however no drainable abscess is seen.
[2022-05-06] MEDS ORDERED: SODIUM CHLORIDE 0.9% 1,000 ML IV ONE (15:56)
[2022-05-06 17:20] VITALS: BP 115/57; PULSE 82
--- NOTE | 2022-05-06 18:03 | P.GSCN ---
History of Present Illness Consult date: 05/06/22 History of present illness: Patient seen and evaluated. CT review demonstrated findings were consistent with ileus. No bowel obstruction. No infection. Where possible count normal. Patient did report a low-grade fever which resolved since been emergency room. After IV fluid hydration, symptoms resolved. HAILY is serosanguineous. Dressings clean dry and intact. Patient stable for discharge. Follow-up in the bariatric center in 1 week. Past Medical History Past Medical History: Asthma, Seizure Disorder Additional Past Medical History / Comment(s): asthma as a child, hx of ruptured gallbladder with + hepatitis c, anemia., Gastric Bypass (2011). States having vomiting, stomach pains and loose stools. last seizure 2014. History of Any Multi-Drug Resistant Organisms: None Reported Past Surgical History: Adenoidectomy, Appendectomy, Bariatric Surgery, Bowel Resection, Cholecystectomy, Tonsillectomy, Tubal Ligation, Uterine Ablation Additional Past Surgical History / Comment(s): ovarian cyst removal, Gastric bypass (2011) D&C , ovaries/fallopian tubes removed, panniculectomy 04/2022 Past Anesthesia/Blood Transfusion Reactions: Motion Sickness, Postoperative Nausea & Vomiting (PONV) Additional Past Anesthesia/Blood Transfusion Reaction / Comm: HX OF BLOOD DOUGLAS SFUSION - NO REACTION Past Psychological History: Anxiety, Depression Smoking Status: Former smoker Past Alcohol Use History: None Reported Past Drug Use History: None Reported - Past Family History Mother Family Medical History: Cancer Additional Family Medical History / Comment(s): endometrial and breast cancer Father Family Medical History: Cancer Additional Family Medical History / Comment(s): esophageal cancer Medications and Allergies Home Medications Medication Instructions Recorded Confirmed Type Estrogens, Conjugated [Premarin] 0.3 mg PO DAILY 10/18/21 05/06/22 History FLUoxetine HCL [PROzac] 10 mg PO DAILY 10/18/21 05/06/22 History Acetaminophen Tab [Tylenol] 1,000 mg PO Q6HR PRN #30 tablet 05/05/22 05/06/22 Rx Ondansetron Odt [Zofran Odt] 4 mg PO Q8HR PRN #10 tab 05/06/22 Rx Simethicone [Simethicone Chew] 80 mg PO BID #15 tab 05/06/22 Rx Allergies Allergy/AdvReac Type Severity Reaction Status Date / Time cephalexin monohydrate Allergy Rash/Hives Verified 05/06/22 14:56 [From Keflex] erythromycin base Allergy Rash/Hives Verified 05/06/22 14:56 [Erythromycin Base] metoclopramide HCl Allergy Rash/Hives Verified 05/06/22 14:56 [From Reglan] ibuprofen AdvReac Nausea & Verified 05/06/22 14:56 Vomiting trazodone AdvReac night Verified 05/06/22 14:56 terrors Surgical - Exam Vital Signs Temp Pulse Resp BP Pulse Ox 99.1 F 96 20 101/77 100 05/06/22 13:36 05/06/22 13:36 05/06/22 13:36 05/06/22 13:36 05/06/22 13:36 Results - Labs 05/06/22 14:12 05/06/22 14:12 Abnormal Lab Results - Last 24 Hours (Table) 05/06/22 05/06/22 05/06/22 Range/Units 14:12 14:12 14:28 RBC 3.45 L (3.80-5.40) m/uL Hgb 10.2 L (11.4-16.0) gm/dL Hct 32.3 L (34.0-46.0) % RDW 16.2 H (11.5-15.5) % Lymphocytes # 0.9 L (1.0-4.8) k/uL Sodium 136 L (137-145) mmol/L Glucose 104 H (74-99) mg/dL AST 44 H (14-36) U/L Total Protein 6.1 L (6.3-8.2) g/dL Albumin 3.4 L (3.5-5.0) g/dL Urine Protein Trace H (Negative) Urine Ketones 2+ H (Negative) Diabetes panel 05/06/22 Range/Units 14:12 Sodium 136 L (137-145) mmol/L Potassium 4.2 (3.5-5.1) mmol/L Chloride 106 (98-107) mmol/L Carbon Dioxide 24 (22-30) mmol/L BUN 8 (7-17) mg/dL Creatinine 0.56 (0.52-1.04) mg/dL Glucose 104 H (74-99) mg/dL Calcium 8.5 (8.4-10.2) mg/dL AST 44 H (14-36) U/L ALT 28 (4-34) U/L Alkaline Phosphatase 98 (38-126) U/L Total Protein 6.1 L (6.3-8.2) g/dL Albumin 3.4 L (3.5-5.0) g/dL Calcium panel 05/06/22 Range/Units 14:12 Calcium 8.5 (8.4-10.2) mg/dL Albumin 3.4 L (3.5-5.0) g/dL Pituitary panel 05/06/22 Range/Units 14:12 Sodium 136 L (137-145) mmol/L Potassium 4.2 (3.5-5.1) mmol/L Chloride 106 (98-107) mmol/L Carbon Dioxide 24 (22-30) mmol/L BUN 8 (7-17) mg/dL Creatinine 0.56 (0.52-1.04) mg/dL Glucose 104 H (74-99) mg/dL Calcium 8.5 (8.4-10.2) mg/dL Adrenal panel 05/06/22 Range/Units 14:12 Sodium 136 L (137-145) mmol/L Potassium 4.2 (3.5-5.1) mmol/L Chloride 106 (98-107) mmol/L Carbon Dioxide 24 (22-30) mmol/L BUN 8 (7-17) mg/dL Creatinine 0.56 (0.52-1.04) mg/dL Glucose 104 H (74-99) mg/dL Calcium 8.5 (8.4-10.2) mg/dL Total Bilirubin 0.3 (0.2-1.3) mg/dL AST 44 H (14-36) U/L ALT 28 (4-34) U/L Alkaline Phosphatase 98 (38-126) U/L Total Protein 6.1 L (6.3-8.2) g/dL Albumin 3.4 L (3.5-5.0) g/dL
== END 2022-05-06 17:58 | disposition home or self-care (01) ==
LOC: EC 13:33
DX: R10.9 Unspecified abdominal pain (principal); R11.2 Nausea with vomiting, unspecified; J45.909 Unspecified asthma, uncomplicated; G40.909 Epilepsy, unspecified, not intractable, without status epilepticus; F41.9 Anxiety disorder, unspecified; F32.A Depression, unspecified; Z87.891 Personal history of nicotine dependence; Z88.1 Allergy status to other antibiotic agents; Z88.8 Allergy status to other drugs, medicaments and biological substances; Z88.6 Allergy status to analgesic agent; Z20.822 Contact with and (suspected) exposure to COVID-19
CPT/HCPCS: 36415; 80053; 82150; 83690; 85025; 85610; 85730; 81003; 87040; 87636; 74177; 99284; 96374; 96375 ×2; 96376; 96361 ×4; J2405; C9113; J1170; Q9967

== ENCOUNTER → 2022-05-13 | Outpatient (CLI) | payer BC ==
[2022-05-13 15:26] VITALS: BP 106/64; PULSE 83; RESP 16; TEMP 98.3; BMI 26.6
--- NOTE | 2022-05-13 16:36 | P.BASOAP ---
Subjective Progress Note Date: 05/13/22 Patient has adequate protein intake of 30 g daily. Optimal goal is 90 g daily. She has moderate fluid retention. Initial panniculectomy of old 5+ pounds. Patient comes in with weight regain into too much or too little in this case protein intake. External dressing discontinued however tape and intact. HAILY strip. No infection. Patient reports exposure to cats with which is sleeping with her. Patient advised to avoid exposure to cats. Otherwise additional dressing sent home. Follow-up in one week. Increase protein intake. Follow-up sooner for any issues. Objective - Vital Signs Vital signs: Vital Signs Temp 98.3 F 05/13/22 15:24 Pulse 83 05/13/22 15:24 Resp 16 05/13/22 15:24 BP 106/64 05/13/22 15:24 Pulse Ox FiO2 Intake & Output 05/12/22 05/13/22 05/13/22 18:59 06:59 18:59 Weight 74.843 kg Assessment/Plan Plan: Date: 05/13/22 Initial Weight: 77.564 kg Initial BMI: 27.6 Current Weight: 74.843 kg Current BMI: 26.6 Type of Surgery: Total Volume in Band: Previous Volume: Volume Removed: Volume Added: Band Size:
== END ==
LOC: BARWHC3 15:07
PROVIDERS: ATTEND Surgery Plastic and Reconstructive Surgery
DX: E66.01 Morbid (severe) obesity due to excess calories (principal); Z68.26 Body mass index [BMI] 26.0-26.9, adult; Z87.891 Personal history of nicotine dependence; Z88.1 Allergy status to other antibiotic agents; Z88.5 Allergy status to narcotic agent; Z88.8 Allergy status to other drugs, medicaments and biological substances; Z88.6 Allergy status to analgesic agent
CPT/HCPCS: 99211

== ENCOUNTER 2022-05-14 21:22 | Emergency (ER) | payer BC ==
[2022-05-14 22:20] VITALS: BP 109/65; PULSE 96; RESP 16; TEMP 98.1
[2022-05-14] MEDS ORDERED: ACETAMINOPHEN TAB 325 MG TAB PO STA (22:32)
[2022-05-14] MEDS ORDERED: HYDROcodone/APAP 5-325MG 1 EACH TAB PO STA (23:42)
--- NOTE | 2022-05-14 23:48 | ED ---
General Adult HPI - General Chief complaint: Recheck/Abnormal Lab/Rx Stated complaint: Post-op comp Time Seen by Provider: 05/14/22 22:11 Source: patient Mode of arrival: ambulatory Limitations: no limitations - History of Present Illness Initial comments: This patient is a 46-year-old woman who presents with complaint that she is having leakage around her Carlos-Morel drain. Patient had a panniculectomy by Dr. Ortiz on April . She states that she has been having intermittent clotting of the drain. She states she was not able to reverse that at home tonight. She is having some stinging discomfort related to fluid that is draining around the drain. Patient denies fever or chills. No abdominal pain. No other complaints. -: days(s) Location: abdomen Quality: other (Stinging pain) Consistency: intermittent Improves with: none Worsens with: none Treatments Prior to Arrival: none - Related Data Home Medications Medication Instructions Recorded Confirmed Estrogens, Conjugated [Premarin] 0.3 mg PO DAILY 10/18/21 05/14/22 FLUoxetine HCL [PROzac] 10 mg PO DAILY 10/18/21 05/14/22 Previous Rx's Medication Instructions Recorded Acetaminophen Tab [Tylenol] 1,000 mg PO Q6HR PRN #30 tablet 05/05/22 Ondansetron Odt [Zofran Odt] 4 mg PO Q8HR PRN #10 tab 05/06/22 Simethicone [Simethicone Chew] 80 mg PO BID #15 tab 05/06/22 Allergies Allergy/AdvReac Type Severity Reaction Status Date / Time cephalexin monohydrate Allergy Rash/Hives Verified 05/06/22 14:56 [From Keflex] erythromycin base Allergy Rash/Hives Verified 05/06/22 14:56 [Erythromycin Base] meperidine [From Demerol] Allergy Rash/Hives Verified 05/14/22 21:34 metoclopramide HCl Allergy Rash/Hives Verified 05/06/22 14:56 [From Reglan] ibuprofen AdvReac Nausea & Verified 05/06/22 14:56 Vomiting trazodone AdvReac night Verified 05/06/22 14:56 terrors Review of Systems ROS Statement: Those systems with pertinent positive or pertinent negative responses have been documented in the HPI. ROS Other: All systems not noted in ROS Statement are negative. Constitutional: Denies: fever, chills Gastrointestinal: Denies: abdominal pain, vomiting, diarrhea Genitourinary: Denies: dysuria, frequency, hematuria Skin: Denies: rash Past Medical History Past Medical History: Asthma, Seizure Disorder Additional Past Medical History / Comment(s): asthma as a child, hx of ruptured gallbladder with + hepatitis c, anemia., Gastric Bypass (2011). States having vomiting, stomach pains and loose stools. last seizure 2014. History of Any Multi-Drug Resistant Organisms: None Reported Past Surgical History: Adenoidectomy, Appendectomy, Bariatric Surgery, Bowel Resection, Cholecystectomy, Tonsillectomy, Tubal Ligation, Uterine Ablation Additional Past Surgical History / Comment(s): ovarian cyst removal, Gastric bypass (2011) D&C , ovaries/fallopian tubes removed, panniculectomy 04/2022. panniculectomy 05-04-22 Past Anesthesia/Blood Transfusion Reactions: Motion Sickness, Postoperative Nausea & Vomiting (PONV) Additional Past Anesthesia/Blood Transfusion Reaction / Comment(s): HX OF BLOOD TRANSFUSION - NO REACTION Past Psychological History: Anxiety, Depression Smoking Status: Former smoker Past Alcohol Use History: None Reported Past Drug Use History: None Reported - Past Family History Mother Family Medical History: Cancer Additional Family Medical History / Comment(s): endometrial and breast cancer Father Family Medical History: Cancer Additional Family Medical History / Comment(s): esophageal cancer General Exam Limitations: no limitations General appearance: alert, in no apparent distress Respiratory exam: Present: normal lung sounds bilaterally. Absent: respiratory distress, wheezes, rales, rhonchi, stridor Cardiovascular Exam: Present: regular rate, normal rhythm, normal heart sounds. Absent: systolic murmur, diastolic murmur, rubs, gallop GI/Abdominal exam: Present: soft, other (Patient's surgical incisions are clean and intact. There is a small amount of serous drainage from the Carlos-Morel drain sites. No purulent drainage. No abnormal erythema or warmth. There are some clots in the drain tubes.). Absent: distended, tenderness, guarding, rebound, rigid, mass Extremities exam: Present: normal inspection, normal capillary refill Back exam: Present: normal inspection. Absent: CVA tenderness (R), CVA tenderness (L) Neurological exam: Present: alert Skin exam: Present: warm, dry, intact, normal color. Absent: rash Course Vital Signs 05/14/22 05/14/22 21:30 22:18 Temperature 98.5 F 98.1 F Pulse Rate 100 96 Respiratory 20 16 Rate Blood Pressure 135/82 109/65 O2 Sat by Pulse 95 99 Oximetry Medical Decision Making - Medical Decision Making I did attempt to strip the clots from the drain tubes in the standard fashion. The tube on the patient's left side does appear to still contain some clot that I'm not sure could be dislodged. I was able to successfully remove the clot from the right drain tube. Patient will follow with Dr. Ortiz. We discussed further follow-up as well as return parameters. Disposition Clinical Impression: Carlos morel drain site pain Disposition: HOME SELF-CARE Condition: Good Instructions (If sedation given, give patient instructions): Carlos-Morel Drain Care (ED) Is patient prescribed a controlled substance at d/c from ED?: No Referrals: Hayder Cabrera MD [Primary Care Provider] - 1-2 days Echo Nickerson MD [STAFF PHYSICIAN] - 1-2 days
== END 2022-05-15 00:03 | disposition home or self-care (01) ==
LOC: EC 21:22
DX: F41.9 Anxiety disorder, unspecified (principal); F32.A Depression, unspecified; J45.909 Unspecified asthma, uncomplicated; Z48.03 Encounter for change or removal of drains; Z88.1 Allergy status to other antibiotic agents; Z88.5 Allergy status to narcotic agent; Z88.6 Allergy status to analgesic agent; Z88.8 Allergy status to other drugs, medicaments and biological substances; Z87.891 Personal history of nicotine dependence
CPT/HCPCS: 99283

== ENCOUNTER 2022-05-15 12:24 | Emergency (ER) | payer BC ==
[2022-05-15 12:31] VITALS: BP 107/70; PULSE 100; RESP 20; TEMP 98.4
--- NOTE | 2022-05-15 13:53 | ED ---
General Adult HPI - General Chief complaint: Abdominal Pain Stated complaint: revisit - clogged surgical drain Time Seen by Provider: 05/15/22 13:45 Source: patient, family, RN notes reviewed, old records reviewed Mode of arrival: ambulatory Limitations: no limitations - History of Present Illness Initial comments: Nontoxic-appearing 46-year-old female presents to the emergency room with family complaining of no drainage in her HAILY drains that were placed after Panniculectomy by Dr. Nickerson. Patient states she had problems with drainage last night and was seen in the emergency room and directe to follow-up with Dr Nickerson this morning. She did have a visiting nurse to the house today who could not get drains working and was referred back to the emergency room. Denies any nausea vomiting or fevers. -: days(s) (1) Location: abdomen Severity scale (1-10): 4 Associated Symptoms: other (No drainage in HAILY drains, oozing around site) - Related Data Home Medications Medication Instructions Recorded Confirmed Estrogens, Conjugated [Premarin] 0.3 mg PO DAILY 10/18/21 05/14/22 FLUoxetine HCL [PROzac] 10 mg PO DAILY 10/18/21 05/14/22 Previous Rx's Medication Instructions Recorded Acetaminophen Tab [Tylenol] 1,000 mg PO Q6HR PRN #30 tablet 05/05/22 Ondansetron Odt [Zofran Odt] 4 mg PO Q8HR PRN #10 tab 05/06/22 Simethicone [Simethicone Chew] 80 mg PO BID #15 tab 05/06/22 Allergies Allergy/AdvReac Type Severity Reaction Status Date / Time cephalexin monohydrate Allergy Rash/Hives Verified 05/06/22 14:56 [From Keflex] erythromycin base Allergy Rash/Hives Verified 05/06/22 14:56 [Erythromycin Base] meperidine [From Demerol] Allergy Rash/Hives Verified 05/14/22 21:34 metoclopramide HCl Allergy Rash/Hives Verified 05/06/22 14:56 [From Reglan] ibuprofen AdvReac Nausea & Verified 05/06/22 14:56 Vomiting trazodone AdvReac night Verified 05/06/22 14:56 terrors Review of Systems ROS Statement: Those systems with pertinent positive or pertinent negative responses have been documented in the HPI. ROS Other: All systems not noted in ROS Statement are negative. Past Medical History Past Medical History: Asthma, Seizure Disorder Additional Past Medical History / Comment(s): asthma as a child, hx of ruptured gallbladder with + hepatitis c, anemia., Gastric Bypass (2011). States having vomiting, stomach pains and loose stools. last seizure 2014. History of Any Multi-Drug Resistant Organisms: None Reported Past Surgical History: Adenoidectomy, Appendectomy, Bariatric Surgery, Bowel Resection, Cholecystectomy, Tonsillectomy, Tubal Ligation, Uterine Ablation Additional Past Surgical History / Comment(s): ovarian cyst removal, Gastric bypass (2011) D&C , ovaries/fallopian tubes removed, panniculectomy 04/2022. panniculectomy 05-04-22 Past Anesthesia/Blood Transfusion Reactions: Motion Sickness, Postoperative Nausea & Vomiting (PONV) Additional Past Anesthesia/Blood Transfusion Reaction / Comment(s): HX OF BLOOD TRANSFUSION - NO REACTION Past Psychological History: Anxiety, Depression Smoking Status: Former smoker Past Alcohol Use History: None Reported Past Drug Use History: None Reported - Past Family History Mother Family Medical History: Cancer Additional Family Medical History / Comment(s): endometrial and breast cancer Father Family Medical History: Cancer Additional Family Medical History / Comment(s): esophageal cancer General Exam Limitations: no limitations General appearance: alert, in no apparent distress Head exam: Present: atraumatic Eye exam: Absent: scleral icterus, conjunctival injection, periorbital swelling Respiratory exam: Absent: respiratory distress, accessory muscle use Cardiovascular Exam: Present: tachycardia GI/Abdominal exam: Present: tenderness, other (HAILY drain sites with minimal drainage on gauze dressings bilaterally). Absent: rigid Extremities exam: Present: normal capillary refill Neurological exam: Present: alert, oriented X3 Psychiatric exam: Present: normal affect, normal mood Skin exam: Present: warm, dry. Absent: cyanosis, diaphoretic, petechiae Course Vital Signs 05/15/22 12:28 Temperature 98.4 F Pulse Rate 100 Respiratory 20 Rate Blood Pressure 107/70 O2 Sat by Pulse 98 Oximetry Medical Decision Making - Medical Decision Making I spoke with Dr. Nickerson who states that drainage around the HAILY drains is normal. Directed to reassure patient and encourage her to increase her protein which patient states had 75 g today and was requested to eat up to 90. She denies any fevers. She is agreeable to being discharged home. She was offered to wait in the emergency room for Dr. Nickerson who is in a procedure but could be down within the next 90 minutes however patient opted to be discharged home. She was directed to use a barrier cream like Vaseline or Desitin to avoid skin breakdown and change dressings frequently. She is agreeable to this plan of care. Case discussed with Dr. Zimmer. Disposition Clinical Impression: Drainage from surgical wound Disposition: HOME SELF-CARE Condition: Good Instructions (If sedation given, give patient instructions): [facility] (ED) Additional Instructions: Follow-up with Dr. Nickerson next week. Return to the emergency room with any new or concerning symptoms including increased pain or fevers. Keep skin dry and change dressings frequently if saturated to prevent skin breakdown. Is patient prescribed a controlled substance at d/c from ED?: No Referrals: Hayder Cabrera MD [Primary Care Provider] - 1-2 days Echo Nickerson MD [STAFF PHYSICIAN] - 1-2 days Time of Disposition: 14:17
--- NOTE | 2022-05-15 18:01 | P.PN ---
Progress Note - Text Progress Note Date: 05/15/22 Contacted patient via telephone for dressing management and drain mamnagement. Will follow up with telehealth tomorrow.
== END 2022-05-15 14:22 | disposition home or self-care (01) ==
LOC: EC 12:24
DX: J45.909 Unspecified asthma, uncomplicated (principal); F32.A Depression, unspecified; F41.9 Anxiety disorder, unspecified; Z48.03 Encounter for change or removal of drains; Z88.1 Allergy status to other antibiotic agents; Z88.5 Allergy status to narcotic agent; Z88.6 Allergy status to analgesic agent; Z88.8 Allergy status to other drugs, medicaments and biological substances; Z87.891 Personal history of nicotine dependence
CPT/HCPCS: 99283

== ENCOUNTER → 2022-05-22 | Outpatient (CLI) | payer BC ==
[2022-05-22 09:16] VITALS: BP 104/69; PULSE 83; TEMP 99.5; BMI 27.7
--- NOTE | 2022-05-22 18:38 | P.BASOAP ---
Subjective Progress Note Date: 05/22/22 Drains discontinued 2 days ago. No palpable abdominal wall seroma. No erythema along panniculectomy site. Pubis with mild fullness. Skin cleansed. Abdominal binder repositioned. Recommend showering with antibacterial soap and using hydrogen peroxide along all incisions. Follow-up in the bariatric center in 1 week. Patient will follow-up with me in 2 weeks. Cultures at this time pending. Objective - Vital Signs Vital signs: Vital Signs Temp 99.5 F 05/22/22 09:11 Pulse 83 05/22/22 09:11 Resp BP 104/69 05/22/22 09:11 Pulse Ox FiO2 Intake & Output 05/21/22 05/22/22 05/22/22 18:59 06:59 18:59 Weight 78.018 kg Assessment/Plan Plan: Date: 05/22/22 Initial Weight: 77.564 kg Initial BMI: 27.6 Current Weight: 78.018 kg Current BMI: 27.7 Type of Surgery: Total Volume in Band: Previous Volume: Volume Removed: Volume Added: Band Size:
== END ==
LOC: BARWHC3 08:50
PROVIDERS: ATTEND Surgery Plastic and Reconstructive Surgery
DX: E66.01 Morbid (severe) obesity due to excess calories (principal); Z68.27 Body mass index [BMI] 27.0-27.9, adult; Z88.1 Allergy status to other antibiotic agents; Z88.5 Allergy status to narcotic agent; Z88.6 Allergy status to analgesic agent; Z88.8 Allergy status to other drugs, medicaments and biological substances; Z87.891 Personal history of nicotine dependence
CPT/HCPCS: 99212

== ENCOUNTER → 2022-06-10 | Outpatient (CLI) | payer BC ==
[2022-06-10 15:10] VITALS: BP 113/78; PULSE 78; TEMP 98.3; BMI 29.2
--- NOTE | 2022-06-10 15:37 | P.BASOAP ---
Subjective Progress Note Date: 06/10/22 Patient reports having purulent drainage from pubis. Patient had Pseudomonas infection. No further drainage noted. Patient happy with the cosmetic response. Recommend additional wound care treatment including Hibiclens for the skin and hydroperoxide along the open drain sites. Continue protein intake at least 80 g daily. Continue to wear a binder at least 2 months postop. Follow up in the office in 2 weeks. Objective - Vital Signs Vital signs: Vital Signs Temp 98.3 F 06/10/22 15:06 Pulse 78 06/10/22 15:06 Resp BP 113/78 06/10/22 15:06 Pulse Ox FiO2 Intake & Output 06/09/22 06/10/22 06/10/22 18:59 06:59 18:59 Weight 82.1 kg Assessment/Plan Plan: Date: 06/10/22 Initial Weight: 77.564 kg Initial BMI: 27.6 Current Weight: 82.1 kg Current BMI: 29.2 Type of Surgery: Total Volume in Band: Previous Volume: Volume Removed: Volume Added: Band Size:
[2022-06-10 16:52] LABS: Partial Thromboplastin Time 24.5 sec (22.0-30.0); Prothrombin Time 10.5 sec (9.0-12.0)
[2022-06-10 22:38] LABS: HCT 32.6 % (37.2-46.3); HGB 9.6 g/dL (12.0-15.0); MCH 28.1 pg (27.0-32.0); MCHC 29.4 g/dL (32.0-37.0); MCV 95.3 fL (80.0-97.0); Mean Platelet Volume 11.8 fL (9.5-12.2); NRBC Per 100 WBC 0 /100 WBCS (0.0-0.0); Platelet Count 346 X 10*3/uL (140-440); RBC 3.42 X 10*6/uL (4.10-5.20); RDW 16.2 % (11.5-14.5); WBC 4.86 X 10*3/uL (4.50-10.00)
[2022-06-10 23:22] LABS: % Iron Saturation 3.49 (12.00-45.00); Total Iron Binding Capacity 496 ug/dL (228-460)
[2022-06-10 23:26] LABS: ALT 18 U/L (8-44); AST 20 U/L (13-35); African American GFR (CKD) 121.3 (60.0-200.0); Albumin/Globulin Ratio 1.54 (1.60-3.17); Alkaline Phosphatase 78 U/L (41-126); BUN/Creat Ratio 18.69 Ratio (12.00-20.00); Blood Urea Nitrogen 12.8 mg/dL (9.0-27.0); Calcium 8.8 mg/dL (8.7-10.3); Chloride 103 mmol/L (96-109); Ferritin 17.1 ng/mL (10.0-291.0); Globulin 2.6 g/dL (1.6-3.3); Glucose 81 mg/dL (70-110); Iron 17 ug/dL (50-170); Magnesium 2.2 mg/dL (1.5-2.4); Non-African American GFR(CKD) 104.7 (60.0-200.0); Phosphorus 3.5 mg/dL (2.4-5.1); Potassium 4.4 mmol/L (3.5-5.5); Sodium 139 mmol/L (135-145); Total Bilirubin <0.15 mg/dL (0.30-1.20); Total Protein 6.6 g/dL (6.2-8.2)
[2022-06-11 00:03] LABS: Chol/HDL Ratio 2.77 Ratio; LDL Cholesterol,Calculated 83.4 mg/dL (0.0-131.0)
[2022-06-12 11:53] LABS: Zinc, Serum 60 ug/dL (60-130)
== END ==
LOC: BARWHC3 14:35
PROVIDERS: ATTEND Surgery Plastic and Reconstructive Surgery
DX: E66.01 Morbid (severe) obesity due to excess calories (principal); E89.1 Postprocedural hypoinsulinemia; K90.89 Other intestinal malabsorption; K90.9 Intestinal malabsorption, unspecified; K74.1 Hepatic sclerosis; E55.9 Vitamin D deficiency, unspecified; N19 Unspecified kidney failure; T56.894A Toxic effect of other metals, undetermined, initial encounter; K50.90 Crohn's disease, unspecified, without complications; Z68.29 Body mass index [BMI] 29.0-29.9, adult; Z88.1 Allergy status to other antibiotic agents; Z88.5 Allergy status to narcotic agent; Z88.6 Allergy status to analgesic agent; Z88.8 Allergy status to other drugs, medicaments and biological substances; Z87.891 Personal history of nicotine dependence
CPT/HCPCS: 80053; 80061; 82306; 82525; 82607; 82728; 82746; 83036; 83540; 83550; 83735; 83970; 84100; 84134; 84255; 84425; 84590; 84630; 85027; 85610; 85730; 99212

== ENCOUNTER → 2022-06-24 | Outpatient (CLI) | payer BC ==
[2022-06-24 15:23] VITALS: BP 115/75; PULSE 120; TEMP 98.5; BMI 28.0
--- NOTE | 2022-06-24 15:50 | P.BASOAP ---
Subjective Progress Note Date: 06/24/22 She is doing well. Recommend food diary journal. She is eating too much carbs. 3 weeks. She is eating sphagetti. Symptomatic anemia. Recommend IV infusion. Green tea and christine. Objective - Vital Signs Vital signs: Vital Signs Temp 98.5 F 06/24/22 15:20 Pulse 120 H 06/24/22 15:20 Resp BP 115/75 06/24/22 15:20 Pulse Ox FiO2 Intake & Output 06/23/22 06/24/22 06/24/22 18:59 06:59 18:59 Weight 78.925 kg Assessment/Plan Plan: Date: 06/24/22 Initial Weight: 77.564 kg Initial BMI: 27.6 Current Weight: 78.925 kg Current BMI: 28.0 Type of Surgery: Total Volume in Band: Previous Volume: Volume Removed: Volume Added: Band Size:
== END ==
LOC: BARWHC3 14:38
PROVIDERS: ATTEND Surgery Plastic and Reconstructive Surgery
DX: E66.01 Morbid (severe) obesity due to excess calories (principal); Z53.9 Procedure and treatment not carried out, unspecified reason
CPT/HCPCS: 99211

== ENCOUNTER → 2022-09-04 | Outpatient (CLI) | payer BC ==
[2022-09-04 16:33] LABS: % Iron Saturation 29.28 (12.00-45.00)
== END | disposition home or self-care (01) ==
LOC: LABWHC1 09:25
PROVIDERS: ATTEND Physician Assistant Medical
DX: R77.8 Other specified abnormalities of plasma proteins (principal)
CPT/HCPCS: 36415; 82728; 83540; 83550

== ENCOUNTER → 2022-09-22 | Outpatient (CLI) | payer BC ==
--- NOTE | 2022-09-23 18:59 | MM ---
Reason for Exam: Screening (asymptomatic). Baseline mammogram. Patient History: Menarche at age 13. First Full-Term at age 20. Left ovary removed at age 45. Right ovary removed at age 45. Hysterectomy at age 45. Postmenopausal. Currently using Unspecified Hormone, starting at age 45. Mother had breast cancer, left, age 48. Risk Values: Denisse 5 year model risk: 1.7%. NCI Lifetime model risk: 17.1%. Prior Study Comparison: Patient's first Mammogram. Tissue Density: The breast tissue is heterogeneously dense. This may lower the sensitivity of mammography. Findings: Analyzed By CAD. Pattern appears symmetrical. There are multiple benign-appearing rounded calcifications present bilaterally. No suspicious groups of microcalcifications, spiculated or lobular masses, architectural distortion or other secondary signs of malignancy are mammographically apparent. Overall Assessment: Benign, BI-RAD 2 Management: Screening Mammogram of both breasts in 1 year. A negative mammogram report should not preclude additional follow up of suspicious palpable abnormalities. Patient should continue monthly self breast exam. A clinical breast exam by your physician is recommended on an annual basis and results should be correlated with mammographic findings. Electronically signed and approved by: Norbert Gamboa D.O. Radiologis
== END | disposition home or self-care (01) ==
LOC: RADMAMWWP 13:39
PROVIDERS: ATTEND Family Medicine
DX: Z12.31 Encounter for screening mammogram for malignant neoplasm of breast (principal); Z78.0 Asymptomatic menopausal state; Z80.3 Family history of malignant neoplasm of breast
CPT/HCPCS: 77063; 77067

== ENCOUNTER → 2023-02-17 | Outpatient (CLI) | payer BC | END | disposition home or self-care (01) | LOC: LABWHC1 09:57 | PROVIDERS: ATTEND Family Medicine | DX: Z98.84 Bariatric surgery status (principal) | CPT/HCPCS: 36415; 84425 ==

== ENCOUNTER 2023-07-05 10:18 | Emergency (ER) | payer BC ==
[2023-07-05] MEDS: ASPIRIN 81 MG PO STA (10:54)
[2023-07-05] MEDS: KETOROLAC 15 MG/ML 1 ML VIAL IVP STA (10:57)
[2023-07-05] MEDS: SODIUM CHLORIDE 0.9% 1,000 ML IV STA (10:57)
[2023-07-05 11:02] LABS: Basophils % (A) 1 %; Eosinophils # (A) 0.3 k/uL (0-0.7); Eosinophils % (A) 6 %; HCT 43.9 % (34.0-46.0); HGB 14.4 gm/dL (11.4-16.0); Lymphocytes # (A) 1.5 k/uL (1.0-4.8); Lymphocytes % (A) 31 %; MCH 32.6 pg (25.0-35.0); MCHC 32.8 g/dL (31.0-37.0); MCV 99.5 fL (80.0-100.0); Mean Platelet Volume 8.9; Monocytes # (A) 0.3 k/uL (0-1.0); Monocytes % (A) 5 %; Neutrophils # (A) 2.7 k/uL (1.3-7.7); Neutrophils % (A) 56 %; Platelet Count 229 k/uL (150-450); RBC 4.41 m/uL (3.80-5.40); RDW 12.3 % (11.5-15.5); WBC 4.8 k/uL (3.8-10.6)
--- NOTE | 2023-07-05 11:02 | ED ---
General Adult HPI - General Chief complaint: Chest Pain Stated complaint: Chest Pains Time Seen by Provider: 07/05/23 10:30 Source: patient, RN notes reviewed, old records reviewed Mode of arrival: wheelchair Limitations: no limitations - History of Present Illness Initial comments: Patient is a 47-year-old female who presents emergency department complaining of chest pain. Is complaining of chest pain since 6 AM. States she has experienced these in the past. Describes it as a tightness with intermittent sharp pain that radiates from her middle to right chest to her right arm and down her arm. Worse with movements of her right arm as well as palpation of her chest and right arm. Does lift boxes at work. Denies any shortness of breath. Denies any abdominal pain, nausea, vomiting. Denies any other acute complaints at this time. No history of cardiac stents in himself but they do exist in family members. She does follow-up with a sales recruitment specialist. Presents for further evaluation. Denies any sweating, nausea, vomiting. Currently pain is controlled and less palpated or with movements. - Related Data Home Medications Medication Instructions Recorded Confirmed Estrogens, Conjugated [Premarin] 0.3 mg PO DAILY 10/18/21 07/05/23 FLUoxetine HCL [PROzac] 10 mg PO DAILY 10/18/21 07/05/23 Cariprazine HCl [Vraylar] 1.5 mg PO DAILY 07/05/23 07/05/23 Multivitamins, Thera [Multivitamin 1 tab PO DAILY 07/05/23 07/05/23 (formulary)] medroxyPROGESTERone [Provera] 2.5 mg PO DAILY 07/05/23 07/05/23 Allergies Allergy/AdvReac Type Severity Reaction Status Date / Time cephalexin monohydrate Allergy Rash/Hives Verified 07/05/23 12:11 [From Keflex] erythromycin base Allergy Rash/Hives Verified 07/05/23 12:11 [Erythromycin Base] meperidine [From Demerol] Allergy Rash/Hives Verified 07/05/23 12:11 metoclopramide HCl Allergy Rash/Hives Verified 07/05/23 12:11 [From Reglan] ibuprofen AdvReac Nausea & Verified 07/05/23 12:11 Vomiting trazodone AdvReac night Verified 07/05/23 12:11 terrors Review of Systems ROS Statement: Those systems with pertinent positive or pertinent negative responses have been documented in the HPI. Review of Systems: CONST: Denies fever EYES: Denies blurry vision ENT: Denies nasal congestion C/V: Endorses chest pain RESP: Denies shortness of breath GI: Denies abdominal pain : Denies dysuria SKIN: Denies rash. MSK: Denies joint pain. NEURO: Denies headache ROS Other: All systems not noted in ROS Statement are negative. Past Medical History Past Medical History: Asthma, Seizure Disorder Additional Past Medical History / Comment(s): asthma as a child, hx of ruptured gallbladder with + hepatitis c, anemia., Gastric Bypass (2011). States having v omiting, stomach pains and loose stools. last seizure 2014. History of Any Multi-Drug Resistant Organisms: None Reported Past Surgical History: Adenoidectomy, Appendectomy, Bariatric Surgery, Bowel Resection, Cholecystectomy, Tonsillectomy, Tubal Ligation, Uterine Ablation Additional Past Surgical History / Comment(s): ovarian cyst removal, Gastric bypass (2011) D&C , ovaries/fallopian tubes removed, panniculectomy 04/2022. panniculectomy 05-04-22 Past Anesthesia/Blood Transfusion Reactions: Motion Sickness, Postoperative Nausea & Vomiting (PONV) Additional Past Anesthesia/Blood Transfusion Reaction / Comment(s): HX OF BLOOD TRANSFUSION - NO REACTION Past Psychological History: Anxiety, Depression Smoking Status: Former smoker Past Alcohol Use History: None Reported Past Drug Use History: None Reported - Past Family History Mother Family Medical History: Cancer Additional Family Medical History / Comment(s): endometrial and breast cancer Father Family Medical History: Cancer Additional Family Medical History / Comment(s): esophageal cancer General Exam - General Exam Comments Initial Comments: General: Appears in no acute distress. HEAD: Normal with no signs of head trauma. EYES: PERRLA, EOMI, conjunctiva normal, no discharge. ENT: Hearing grossly intact, normal oropharynx. RESPIRATORY: Clear breath sounds bilaterally. No wheezes, rales, or rhonchi. C/V: Regular rate and rhythm. S1 and S2 auscultated, no edema, peripheral pulses 2+ and intact throughout. Tenderness to palpation over the right chest and right arm and worse with movements and palpation. Seems to be chest wall pain. ABD: Abd is soft, nontender, nondistended EXT: Normal range of motion, no obvious deformity SKIN: No rashes or lesions observed on exposed skin. NEURO: Alert and oriented x 4. Limitations: no limitations Course Vital Signs 07/05/23 07/05/23 07/05/23 10:19 10:48 12:21 Temperature 98.2 F Pulse Rate 97 81 74 Respiratory 18 20 18 Rate Blood Pressure 107/67 116/74 101/69 O2 Sat by Pulse 99 99 99 Oximetry Medical Decision Making - Medical Decision Making Was pt. sent in by a medical professional or institution (, [facility], BAFFLE INSTALLER, urgent care, hospital, or jail...) When possible be specific @ -No Did you speak to anyone other than the patient for history (EMS, parent, family, police, friend...)? What history was obtained from this source @ -No Did you review nursing and triage notes (agree or disagree)? Why? @ -I reviewed and agree with nursing and triage notes Were old charts reviewed (outside hosp., previous admission, EMS record, old EKG, old radiological studies, urgent care reports/EKG's, jail records)? Report findings @ -Old charts reviewed Differential Diagnosis (chest pain, altered mental status, abdominal pain women, abdominal pain men, vaginal bleeding, weakness, fever, dyspnea, syncope, headache, dizziness, GI bleed, back pain, seizure, CVA, palpatations, mental h ealth, musculoskeletal)? @ -Differential Chest Pain: Stable Angina, Unstable Angina, STEMI, NSTEMI Aortic Dissection, Pneumothorax, Musculoskeletal, Esophageal Spasm GERD, Cholecystitis, Pancreatitis, Zoster, this is not meant to be an all-inclusive list. EKG interpreted by me (3pts min.). @ -As above X-rays interpreted by me (1pt min.). @ -Chest x-ray reveals no obvious acute cardiopulmonary process. CT interpreted by me (1pt min.). @ -None done U/S interpreted by me (1pt. min.). @ -None done What testing was considered but not performed or refused? (CT, X-rays, U/S, labs)? Why? @ -None What meds were considered but not given or refused? Why? @ -None Did you discuss the management of the patient with other professionals (professionals i.e. , PA, BAFFLE INSTALLER, lab, RT, psych nurse, web content & social media manager, fitness center attendant, teacher, investment officer, window caser)? Give summary @ -No Was smoking cessation discussed for >3mins.? @ -No Was critical care preformed (if so, how long)? @ -No Were there social determinants of health that impacted care today? How? (Homelessness, low income, unemployed, alcoholism, drug addiction, transportation, low edu. Level, literacy, decrease access to med. care, usp, rehab)? @ -No Was there de-escalation of care discussed even if they declined (Discuss DNR or withdrawal of care, Hospice)? DNR status @ -No What co-morbidities impacted this encounter? (DM, HTN, Smoking, COPD, CAD, Cancer, CVA, ARF, Chemo, Hep., AIDS, mental health diagnosis, sleep apnea, morbi d obesity)? @ -None Was patient admitted / discharged? Hospital course, mention meds given and rout e, prescriptions, significant lab abnormalities, going to OR and other pertinent info. @ -Based on the patient's presentation and physical exam, presents with what appears to be chest wall pain. Cardiopulmonary workup will be obtained. Patient will be given IV Toradol as well as aspirin. Vital signs are within acceptable limits. She was in agreement this plan. EKG shows no signs of acute ischemia.Chest x-ray reveals no obvious acute cardiopulmonary process. Right shoulder x-ray also reveals no obvious acute process. Patient's laboratory studies unremarkable including D-dimer within acc eptable limits, undetectable troponin, BNP within acceptable limits. On reevaluation, patient's chest pain is resolved. I discussed her workup. Due to family history, we did discuss observation admission versus discharge. She would like to go home. We will obtain a second troponin. Patient was in agreement this plan. Heart score is low. Second troponin remains undetectable. She remains asymptomatic. She will be discharged home at this time with a work note. I instructed the patient to follow up with their PCP in the next 1-3 days. I explained that the patient should return to the emergency department if they experience any worsening symptoms. Strict return precautions were discussed with the patient. The patient expressed understanding of these instructions. I answered all questions that the patient had. The patient was discharged home in good condition with their prescriptions and follow up information. Undiagnosed new problem with uncertain prognosis? @ -No Drug Therapy requiring intensive monitoring for toxicity (Heparin, Nitro, Insulin, Cardizem)? @ -No Were any procedures done? @ -No Diagnosis/symptom? @ -Chest wall pain, right shoulder pain Acute, or Chronic, or Acute on Chronic? @ -Acute Uncomplicated (without systemic symptoms) or Complicated (systemic symptoms)? @ -Complicated Side effects of treatment? @ -None Exacerbation, Progression, or Severe Exacerbation] @ -No Poses a threat to life or bodily function? @ -Unlikely - Lab Data Result diagrams: 07/05/23 10:50 07/05/23 10:50 Lab Results 07/05/23 07/05/23 07/05/23 Range/Units 10:50 10:50 10:50 WBC 4.8 (3.8-10.6) k/uL RBC 4.41 (3.80-5.40) m/uL Hgb 14.4 (11.4-16.0) gm/dL Hct 43.9 (34.0-46.0) % MCV 99.5 (80.0-100.0) fL MCH 32.6 (25.0-35.0) pg MCHC 32.8 (31.0-37.0) g/dL RDW 12.3 (11.5-15.5) % Plt Count 229 (150-450) k/uL MPV 8.9 Neutrophils % 56 % Lymphocytes % 31 % Monocytes % 5 % Eosinophils % 6 % Basophils % 1 % Neutrophils # 2.7 (1.3-7.7) k/uL Lymphocytes # 1.5 (1.0-4.8) k/uL Monocytes # 0.3 (0-1.0) k/uL Eosinophils # 0.3 (0-0.7) k/uL Basophils # 0.0 (0-0.2) k/uL PT 10.4 (10.0-12.5) sec INR 0.9 (<1.2) APTT 25.1 (22.0-30.0) sec D-Dimer 0.50 (<0.60) mg/L FEU Sodium 140 (137-145) mmol/L Potassium 4.7 (3.5-5.1) mmol/L Chloride 108 H (98-107) mmol/L Carbon Dioxide 27 (22-30) mmol/L Anion Gap 5 mmol/L BUN 11 (7-17) mg/dL Creatinine 0.70 (0.52-1.04) mg/dL Est GFR (CKD-EPI)AfAm >90 (>60 ml/min/1.73 sqM) Est GFR (CKD-EPI)NonAf >90 (>60 ml/min/1.73 sqM) Glucose 88 (74-99) mg/dL Calcium 9.3 (8.4-10.2) mg/dL Magnesium 2.1 (1.6-2.3) mg/dL Total Bilirubin 0.4 (0.2-1.3) mg/dL AST 28 (14-36) U/L ALT 20 (4-34) U/L Alkaline Phosphatase 80 (38-126) U/L Troponin I (0.000-0.034) ng/mL NT-Pro-B Natriuret Pep 163 pg/mL Total Protein 6.5 (6.3-8.2) g/dL Albumin 3.7 (3.5-5.0) g/dL 07/05/23 07/05/23 Range/Units 10:50 13:30 WBC (3.8-10.6) k/uL RBC (3.80-5.40) m/uL Hgb (11.4-16.0) gm/dL Hct (34.0-46.0) % MCV (80.0-100.0) fL MCH (25.0-35.0) pg MCHC (31.0-37.0) g/dL RDW (11.5-15.5) % Plt Count (150-450) k/uL MPV Neutrophils % % Lymphocytes % % Monocytes % % Eosinophils % % Basophils % % Neutrophils # (1.3-7.7) k/uL Lymphocytes # (1.0-4.8) k/uL Monocytes # (0-1.0) k/uL Eosinophils # (0-0.7) k/uL Basophils # (0-0.2) k/uL PT (10.0-12.5) sec INR (<1.2) APTT (22.0-30.0) sec D-Dimer (<0.60) mg/L FEU Sodium (137-145) mmol/L Potassium (3.5-5.1) mmol/L Chloride (98-107) mmol/L Carbon Dioxide (22-30) mmol/L Anion Gap mmol/L BUN (7-17) mg/dL Creatinine (0.52-1.04) mg/dL Est GFR (CKD-EPI)AfAm (>60 ml/min/1.73 sqM) Est GFR (CKD-EPI)NonAf (>60 ml/min/1.73 sqM) Glucose (74-99) mg/dL Calcium (8.4-10.2) mg/dL Magnesium (1.6-2.3) mg/dL Total Bilirubin (0.2-1.3) mg/dL AST (14-36) U/L ALT (4-34) U/L Alkaline Phosphatase (38-126) U/L Troponin I <0.012 <0.012 (0.000-0.034) ng/mL NT-Pro-B Natriuret Pep pg/mL Total Protein (6.3-8.2) g/dL Albumin (3.5-5.0) g/dL - EKG Data -: EKG Interpreted by Me EKG Comments: 12-lead Electrocardiogram Interpretation Note EKG was reviewed and interpreted by myself. 12-lead ECG performed at 1028 is interpreted by me as revealing normal sinus rhythm at a rate of 80 beats per minute. [place] is normal. CO interval is 142 ms, QRS duration is 81 ms, QTc is 389 ms.. There were no ST or T wave abnormalities to suggest myocardial ischemia or injury. R wave progression across the precordium was satisfactory. By my interpretation this EKG is non-diagnostic for acute ischemia. Disposition Clinical Impression: Chest wall pain, Shoulder pain, right Disposition: ADMITTED IP TO THIS HOSP Condition: Stable Instructions (If sedation given, give patient instructions): Chest Pain (ED), Chest Wall Pain (ED) Is patient prescribed a controlled substance at d/c from ED?: No Referrals: Hayder Cabrera MD [Primary Care Provider] - 1-2 days Time of Disposition: 14:20
[2023-07-05 11:11] LABS: ALT 20 U/L (4-34); AST 28 U/L (14-36); African American GFR (CKD) >90 (>60 ml/min/1.73 sqM); Albumin 3.7 g/dL (3.5-5.0); Alkaline Phosphatase 80 U/L (38-126); Anion Gap 5 mmol/L; Blood Urea Nitrogen 11 mg/dL (7-17); Calcium 9.3 mg/dL (8.4-10.2); Carbon Dioxide 27 mmol/L (22-30); Chloride 108 mmol/L (98-107); Glucose 88 mg/dL (74-99); Magnesium 2.1 mg/dL (1.6-2.3); Non-African American GFR(CKD) >90 (>60 ml/min/1.73 sqM); Potassium 4.7 mmol/L (3.5-5.1); Sodium 140 mmol/L (137-145); Total Bilirubin 0.4 mg/dL (0.2-1.3); Total Protein 6.5 g/dL (6.3-8.2)
[2023-07-05 11:15] VITALS: TEMP 98.2
[2023-07-05 11:16] LABS: INR 0.9 (<1.2); Partial Thromboplastin Time 25.1 sec (22.0-30.0); Prothrombin Time 10.4 sec (10.0-12.5)
[2023-07-05 11:19] LABS: NT-Pro-B-Type Natriuretic Pept 163 pg/mL
--- NOTE | 2023-07-05 11:23 | XR ---
EXAMINATION TYPE: XR chest 2V DATE OF EXAM: 07/05/2023 11:12 AM CLINICAL INDICATION:Female, 47 years old with history of Chest Pain; [facility] COMPARISON: Chest radiographs from 10/18/2021 TECHNIQUE: XR chest 2V Frontal and lateral views of the chest. FINDINGS: Lungs/Pleura: There is no evidence of pleural effusion, focal consolidation, or pneumothorax. Pulmonary vascularity: Unremarkable. Heart/mediastinum: Cardiomediastinal silhouette is unremarkable. Musculoskeletal: No acute osseous pathology. Other findings: None IMPRESSION: No acute cardiopulmonary disease/process.
--- NOTE | 2023-07-05 11:24 | XR ---
EXAMINATION TYPE: XR shoulder limited RT DATE OF EXAM: 07/05/2023 11:12 AM CLINICAL INDICATION:Female, 47 years old with history of atraumatic pain; COMPARISON: None TECHNIQUE: XR shoulder limited RT; examined in AP, internally rotated and scapular Y projections. FINDINGS: No evidence of acute osseous pathology, joint dislocation, or soft tissue swelling. The remaining po rtions of the visualized chest are unremarkable. Mild degeneration changes of the left acromion and distal clavicle. IMPRESSION: No acute osseous pathology.
--- NOTE | 2023-07-05 14:34 | ED ---
Medical Decision Making - Lab Data Result diagrams: 07/05/23 10:50 07/05/23 10:50 Lab Results 07/05/23 07/05/23 07/05/23 Range/Units 10:50 10:50 10:50 WBC 4.8 (3.8-10.6) k/uL RBC 4.41 (3.80-5.40) m/uL Hgb 14.4 (11.4-16.0) gm/dL Hct 43.9 (34.0-46.0) % MCV 99.5 (80.0-100.0) fL MCH 32.6 (25.0-35.0) pg MCHC 32.8 (31.0-37.0) g/dL RDW 12.3 (11.5-15.5) % Plt Count 229 (150-450) k/uL MPV 8.9 Neutrophils % 56 % Lymphocytes % 31 % Monocytes % 5 % Eosinophils % 6 % Basophils % 1 % Neutrophils # 2.7 (1.3-7.7) k/uL Lymphocytes # 1.5 (1.0-4.8) k/uL Monocytes # 0.3 (0-1.0) k/uL Eosinophils # 0.3 (0-0.7) k/uL Basophils # 0.0 (0-0.2) k/uL PT 10.4 (10.0-12.5) sec INR 0.9 (<1.2) APTT 25.1 (22.0-30.0) sec D-Dimer 0.50 (<0.60) mg/L FEU Sodium 140 (137-145) mmol/L Potassium 4.7 (3.5-5.1) mmol/L Chloride 108 H (98-107) mmol/L Carbon Dioxide 27 (22-30) mmol/L Anion Gap 5 mmol/L BUN 11 (7-17) mg/dL Creatinine 0.70 (0.52-1.04) mg/dL Est GFR (CKD-EPI)AfAm >90 (>60 ml/min/1.73 sqM) Est GFR (CKD-EPI)NonAf >90 (>60 ml/min/1.73 sqM) Glucose 88 (74-99) mg/dL Calcium 9.3 (8.4-10.2) mg/dL Magnesium 2.1 (1.6-2.3) mg/dL Total Bilirubin 0.4 (0.2-1.3) mg/dL AST 28 (14-36) U/L ALT 20 (4-34) U/L Alkaline Phosphatase 80 (38-126) U/L Troponin I (0.000-0.034) ng/mL NT-Pro-B Natriuret Pep 163 pg/mL Total Protein 6.5 (6.3-8.2) g/dL Albumin 3.7 (3.5-5.0) g/dL 07/05/23 07/05/23 Range/Units 10:50 13:30 WBC (3.8-10.6) k/uL RBC (3.80-5.40) m/uL Hgb (11.4-16.0) gm/dL Hct (34.0-46.0) % MCV (80.0-100.0) fL MCH (25.0-35.0) pg MCHC (31.0-37.0) g/dL RDW (11.5-15.5) % Plt Count (150-450) k/uL MPV Neutrophils % % Lymphocytes % % Monocytes % % Eosinophils % % Basophils % % Neutrophils # (1.3-7.7) k/uL Lymphocytes # (1.0-4.8) k/uL Monocytes # (0-1.0) k/uL Eosinophils # (0-0.7) k/uL Basophils # (0-0.2) k/uL PT (10.0-12.5) sec INR (<1.2) APTT (22.0-30.0) sec D-Dimer (<0.60) mg/L FEU Sodium (137-145) mmol/L Potassium (3.5-5.1) mmol/L Chloride (98-107) mmol/L Carbon Dioxide (22-30) mmol/L Anion Gap mmol/L BUN (7-17) mg/dL Creatinine (0.52-1.04) mg/dL Est GFR (CKD-EPI)AfAm (>60 ml/min/1.73 sqM) Est GFR (CKD-EPI)NonAf (>60 ml/min/1.73 sqM) Glucose (74-99) mg/dL Calcium (8.4-10.2) mg/dL Magnesium (1.6-2.3) mg/dL Total Bilirubin (0.2-1.3) mg/dL AST (14-36) U/L ALT (4-34) U/L Alkaline Phosphatase (38-126) U/L Troponin I <0.012 <0.012 (0.000-0.034) ng/mL NT-Pro-B Natriuret Pep pg/mL Total Protein (6.3-8.2) g/dL Albumin (3.5-5.0) g/dL Disposition Clinical Impression: Chest wall pain, Shoulder pain, right Disposition: HOME SELF-CARE Condition: Good Instructions (If sedation given, give patient instructions): Chest Pain (ED), Chest Wall Pain (ED) Is patient prescribed a controlled substance at d/c from ED?: No Referrals: Hayder Cabrera MD [Primary Care Provider] - 1-2 days
[2023-07-05 14:46] VITALS: BP 105/60; PULSE 77; RESP 20
== END 2023-07-05 14:36 | disposition home or self-care (01) ==
LOC: EC 10:18
DX: M25.511 Pain in right shoulder (principal); R07.89 Other chest pain; J45.909 Unspecified asthma, uncomplicated; F32.A Depression, unspecified; F41.9 Anxiety disorder, unspecified; Z87.891 Personal history of nicotine dependence; Z79.899 Other long term (current) drug therapy; Z88.1 Allergy status to other antibiotic agents; Z88.5 Allergy status to narcotic agent; Z88.6 Allergy status to analgesic agent; Z88.8 Allergy status to other drugs, medicaments and biological substances; Z90.49 Acquired absence of other specified parts of digestive tract
CPT/HCPCS: 36415; 93005; 85379; 83880; 80053; 83735; 84484; 85025; 85610; 85730; 73020; 71046; 99285; 96374; 96361; J1885

== ENCOUNTER 2023-08-13 12:17 | Emergency (ER) | payer OTHER, BC ==
[2023-08-13 12:52] VITALS: RESP 18
--- NOTE | 2023-08-13 13:21 | ED ---
Head Injury HPI - General Chief complaint: Head Injury Stated complaint: [facility]-Headache Time Seen by Provider: 08/13/23 12:41 Source: patient, RN notes reviewed Mode of arrival: ambulatory Limitations: no limitations - History of Present Illness Initial comments: This is a 47-year-old female who presents to the emergency department for a head injury. 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 A wooden easel ended up falling off the shelf and hitting her on the top of the head. This only weighed about 1 pound, but fell around 3 feet onto her head. She has since had a headache. Also reports mild nausea. Denies any loss of consciousness. Not taking any blood thinners. MD Complaint: head injury - Related Data Home Medications Medication Instructions Recorded Confirmed Estrogens, Conjugated [Premarin] 0.3 mg PO DAILY 10/18/21 07/05/23 FLUoxetine HCL [PROzac] 10 mg PO DAILY 10/18/21 07/05/23 Cariprazine HCl [Vraylar] 1.5 mg PO DAILY 07/05/23 07/05/23 Multivitamins, Thera [Multivitamin 1 tab PO DAILY 07/05/23 07/05/23 (formulary)] medroxyPROGESTERone [Provera] 2.5 mg PO DAILY 07/05/23 07/05/23 Allergies/Adverse reactions: Allergies Allergy/AdvReac Type Severity Reaction Status Date / Time cephalexin monohydrate Allergy Rash/Hives Verified 08/13/23 12:25 [From Keflex] erythromycin base Allergy Rash/Hives Verified 08/13/23 12:25 [Erythromycin Base] meperidine [From Demerol] Allergy Rash/Hives Verified 08/13/23 12:25 metoclopramide HCl Allergy Rash/Hives Verified 08/13/23 12:25 [From Reglan] ibuprofen AdvReac Nausea & Verified 08/13/23 12:25 Vomiting trazodone AdvReac night Verified 08/13/23 12:25 terrors Review of Systems ROS Statement: Those systems with pertinent positive or pertinent negative responses have been documented in the HPI. ROS Other: All systems not noted in ROS Statement are negative. Past Medical History Past Medical History: Asthma, Seizure Disorder Additional Past Medical History / Comment(s): asthma as a child, hx of ruptured gallbladder with + hepatitis c, anemia., Gastric Bypass (2011). States having vomiting, stomach pains and loose stools. last seizure 2014. History of Any Multi-Drug Resistant Organisms: None Reported Past Surgical History: Adenoidectomy, Appendectomy, Bariatric Surgery, Bowel Resection, Cholecystectomy, Tonsillectomy, Tubal Ligation, Uterine Ablation Additional Past Surgical History / Comment(s): ovarian cyst removal, Gastric bypass (2011) D&C , ovaries/fallopian tubes removed, panniculectomy 04/2022. panniculectomy 05-04-22 Past Anesthesia/Blood Transfusion Reactions: Motion Sickness, Postoperative Nausea & Vomiting (PONV) Additional Past Anesthesia/Blood Transfusion Reaction / Comment(s): HX OF BLOOD TRANSFUSION - NO REACTION Past Psychological History: Anxiety, Depression Smoking Status: Former smoker Past Alcohol Use History: None Reported Past Drug Use History: Marijuana - Past Family History Mother Family Medical History: Cancer Additional Family Medical History / Comment(s): endometrial and breast cancer Father Family Medical History: Cancer Additional Family Medical History / Comment(s): esophageal cancer General Exam Limitations: no limitations General appearance: alert, in no apparent distress Head exam: Present: atraumatic Eye exam: Present: normal appearance, PERRL, EOMI. Absent: scleral icterus, conjunctival injection, periorbital swelling Respiratory exam: Present: normal lung sounds bilaterally. Absent: respiratory distress, wheezes, rales, rhonchi, stridor Cardiovascular Exam: Present: regular rate, normal rhythm, normal heart sounds. Absent: systolic murmur, diastolic murmur, rubs, gallop, clicks Neurological exam: Present: alert, oriented X3, CN II-XII intact Psychiatric exam: Present: normal affect, normal mood Skin exam: Present: warm, dry, intact, normal color. Absent: rash Course Vital Signs 08/13/23 08/13/23 08/13/23 12:21 13:24 14:43 Temperature 98.1 F 97.9 F Pulse Rate 83 76 71 Respiratory 18 18 18 Rate Blood Pressure 114/78 114/74 121/78 O2 Sat by Pulse 100 99 100 Oximetry Medical Decision Making - Medical Decision Making This is a 47 year old female who presents to the emergency department for a head injury. Was pt. sent in by a medical professional or institution? @ -No Did you speak to anyone other than the patient for history? @ -No Did you review nursing and triage notes? @ -Yes, and I agree, it is accurate with regards to the patient's symptoms. Were old charts reviewed? @ -No Differential Diagnosis? @ -Differential Diagnosis Head Injury: Contusion, hematoma, intracranial hemorrhage, skull fracture, whiplash, concussion, this is not meant to be an all-inclusive list. EKG interpreted by me (3pts min.)? @ -Not obtained X-rays interpreted by me (1pt min.)? @ -Not obtained CT interpreted by me (1pt min.)? @ -Not obtained U/S interpreted by me (1pt. min.)? @ -Not obtained What testing was considered but not performed? (CT, X-rays, U/S, labs)? Why? @ -None What meds were considered but not given? Why? @ -None Did you discuss the management of the patient with other professionals? @ -No Did you reconcile home meds? @ -No Was smoking cessation discussed for >3mins.? @ -No Was critical care preformed (if so, how long)? @ -No Were there social determinants of health that impacted care today? How? (Homelessness, low income, unemployed, alcoholism, drug addiction, transportation, low edu. Level, literacy, decrease access to med. care, senior living, rehab)? @ -No Was there de-escalation of care discussed even if they declined? (Discuss DNR or withdrawal of care, Hospice)? @ -No What co-morbidities impacted this encounter? (DM, HTN, Smoking, COPD, CAD, Cancer, CVA, Hep., AIDS, mental health diagnosis, sleep apnea, morbid obesity)? @ -None Was patient admitted / discharged? @ -Discharged. Patient has a GCS of 15. She had no loss of consciousness, is not taking any blood thinners, and has no signs of a skull fracture. Given these findings, no CT scan of the brain was obtained with regards to minor blunt head trauma. Her headache was well-controlled in the emergency department and she was discharged home in stable condition. Advised ibuprofen and Tylenol as needed for pain relief. Undiagnosed new problem with uncertain prognosis? @ -None Drug Therapy requiring intensive monitoring for toxicity (Heparin, Nitro, Insulin, Cardizem)? @ -None Were any procedures done? @ -None Diagnosis/symptom? @ -Minor blunt head injury Acute, or Chronic, or Acute on Chronic? @ -Acute Uncomplicated (without systemic symptoms) or Complicated (systemic symptoms)? @ -Uncomplicated Side effects of treatment? @ -None Exacerbation, Progression, or Severe Exacerbation] @ -Not applicable Poses a threat to life or bodily function? @ -No Return precautions reviewed in depth, the patient is instructed to return to the emergency department with any new, worsening, or concerning symptoms. Patient verbalized understanding. This case was discussed in detail with the attending ED physician, Dr. Longo. Presentation, findings, and treatment plan discussed in detail as well. Disposition Clinical Impression: Blunt head injury Disposition: HOME SELF-CARE Instructions (If sedation given, give patient instructions): Head Injury (ED) Additional Instructions: Return to the emergency department with any new, worsening, or concerning symptoms. Alternate with ibuprofen and Tylenol as needed for pain relief. Follow up with your primary care provider in 1-2 days. Is patient prescribed a controlled substance at d/c from ED?: No Referrals: Hayder Cabrera MD [Primary Care Provider] - 1-2 days
[2023-08-13] MEDS: DEXAMETHASONE SOD PHOSPHATE 10 MG/ML 1 ML VIAL IM STA (13:48)
[2023-08-13] MEDS: ONDANSETRON ODT 4 MG TAB PO STA (13:48)
[2023-08-13] MEDS: KETOROLAC 15 MG/ML 1 ML VIAL IM STA (13:48)
[2023-08-13] MEDS: ACETAMINOPHEN TAB 500 MG TAB PO STA (13:48)
[2023-08-13 14:43] VITALS: TEMP 97.9
[2023-08-13 15:19] VITALS: BP 121/78; PULSE 71
== END 2023-08-13 14:44 | disposition home or self-care (01) ==
LOC: EC 12:17
DX: S09.90XA Unspecified injury of head, initial encounter (principal); F12.90 Cannabis use, unspecified, uncomplicated; Z87.891 Personal history of nicotine dependence; Z88.1 Allergy status to other antibiotic agents; Z88.6 Allergy status to analgesic agent; Z88.8 Allergy status to other drugs, medicaments and biological substances; Z88.5 Allergy status to narcotic agent; W18.09XA Striking against other object with subsequent fall, initial encounter
CPT/HCPCS: 99283; 96372 ×2; J1100; J1885

== ENCOUNTER → 2023-09-01 | Outpatient (CLI) | payer BC ==
[2023-09-01 18:36] LABS: HCT 41.3 % (37.2-46.3); HGB 13.2 g/dL (12.0-15.0); MCH 31.7 pg (27.0-32.0); Mean Platelet Volume 12.1 FL (9.5-12.2); NRBC Per 100 WBC 0 X 10*3/uL (0.00-0.01); Platelet Count 255 X 10*3/uL (140-440); RBC 4.17 X 10*6/uL (4.10-5.20); RDW 12.9 % (11.5-14.5); WBC 8.25 X 10*3/uL (4.50-10.00)
[2023-09-01 18:37] LABS: Basophils # (A) 0.05 X 10*3/uL (0.00-0.10); Basophils % (A) 0.6 %; Eosinophils # (A) 0.16 X 10*3/uL (0.04-0.35); Eosinophils % (A) 1.9 %; Lymphocytes # (A) 2.13 X 10*3/uL (0.90-5.00); Lymphocytes % (A) 25.8 %; Monocytes # (A) 0.59 X 10*3/uL (0.20-1.00); Monocytes % (A) 7.2 %; Neutrophils % (A) 64.3 %
[2023-09-01 22:15] LABS: Blood Urea Nitrogen 11.2 mg/dL (9.0-27.0); Carbon Dioxide 23.1 mmol/L (21.6-31.8); Chloride 107 mmol/L (96-109); Potassium 4.2 mmol/L (3.5-5.5); Sodium 142 mmol/L (135-145)
== END | disposition home or self-care (01) ==
LOC: LABPAT 15:11
PROVIDERS: ATTEND Internal Medicine
DX: Z01.812 Encounter for preprocedural laboratory examination (principal); R07.9 Chest pain, unspecified
CPT/HCPCS: 80051; 82565; 84520; 85025

== ENCOUNTER 2023-10-15 09:40 | Observation (INO) | payer BC ==
--- NOTE | 2023-10-15 10:09 | ED ---
General Adult HPI - General Chief complaint: Chest Pain Stated complaint: Chest pain Time Seen by Provider: 10/15/23 09:54 Source: patient, family, RN notes reviewed Mode of arrival: ambulatory Limitations: no limitations - History of Present Illness Initial comments: Patient is a 48-year-old female present to the emergency department with chest discomfort. Onset of symptoms was a month ago. Patient had stress test and stress echo which was abnormal and has plans for heart catheterization. 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 Discomfort improved with rest and 1 nitroglycerin. Discomfort is mild at this time. Discomfort feels like pressure. There is associated nausea, dyspnea, and diaphoresis. Patient does have strong family history of heart disease. - Related Data Home Medications Medication Instructions Recorded Confirmed Estrogens, Conjugated [Premarin] 0.3 mg PO DAILY 10/18/21 10/15/23 FLUoxetine HCL [PROzac] 10 mg PO DAILY 10/18/21 10/15/23 Cariprazine HCl [Vraylar] 1.5 mg PO DAILY 07/05/23 10/15/23 medroxyPROGESTERone [Provera] 2.5 mg PO DAILY 07/05/23 10/15/23 Metoprolol Succinate (ER) [Toprol 12.5 mg PO DAILY 10/15/23 10/15/23 Xl] Nitroglycerin Sl Tabs [Nitrostat] 0.4 mg SUBLINGUAL Q5M PRN 10/15/23 10/15/23 amLODIPine [Norvasc] 2.5 mg PO DAILY 10/15/23 10/15/23 Allergies Allergy/AdvReac Type Severity Reaction Status Date / Time cephalexin monohydrate Allergy Rash/Hives Verified 10/15/23 11:27 [From Keflex] erythromycin base Allergy Rash/Hives Verified 10/15/23 11:27 [Erythromycin Base] meperidine [From Demerol] Allergy Rash/Hives Verified 10/15/23 11:27 metoclopramide HCl Allergy Rash/Hives Verified 10/15/23 11:27 [From Reglan] ibuprofen AdvReac Nausea & Verified 10/15/23 11:27 Vomiting trazodone AdvReac night Verified 10/15/23 11:27 terrors Review of Systems ROS Statement: Those systems with pertinent positive or pertinent negative responses have been documented in the HPI. ROS Other: All systems not noted in ROS Statement are negative. Constitutional: Denies: fever Eyes: Denies: eye pain ENT: Denies: ear pain Respiratory: Reports: as per HPI Cardiovascular: Reports: as per HPI, chest pain Endocrine: Denies: as per HPI Gastrointestinal: Reports: as per HPI Musculoskeletal: Denies: back pain Past Medical History Past Medical History: Asthma, Seizure Disorder Additional Past Medical History / Comment(s): asthma as a child, hx of ruptured gallbladder with + hepatitis c, anemia., Gastric Bypass (2011). States having vomiting, stomach pains and loose stools. last seizure 2014. History of Any Multi-Drug Resistant Organisms: None Reported Past Surgical History: Adenoidectomy, Appendectomy, Bariatric Surgery, Bowel Resection, Cholecystectomy, Tonsillectomy, Tubal Ligation, Uterine Ablation Additional Past Surgical History / Comment(s): ovarian cyst removal, Gastric bypass (2011) D&C , ovaries/fallopian tubes removed, panniculectomy 04/2022. panniculectomy 05-04-22 Past Anesthesia/Blood Transfusion Reactions: Motion Sickness, Postoperative Nausea & Vomiting (PONV) Additional Past Anesthesia/Blood Transfusion Reaction / Comment(s): HX OF BLOOD TRANSFUSION - NO REACTION Past Psychological History: Anxiety, Depression Smoking Status: Former smoker Past Alcohol Use History: None Reported Past Drug Use History: Marijuana - Past Family History Mother Family Medical History: Cancer Additional Family Medical History / Comment(s): endometrial and breast cancer Father Family Medical History: Cancer Additional Family Medical History / Comment(s): esophageal cancer General Exam Limitations: no limitations General appearance: alert, in no apparent distress Head exam: Present: normocephalic Eye exam: Present: normal appearance Neck exam: Present: normal inspection Respiratory exam: Present: normal lung sounds bilaterally. Absent: chest wall tenderness Cardiovascular Exam: Present: regular rate, normal rhythm, normal heart sounds Expanded Peripheral pulses: 2+: Radial (R), Radial (L), Posterior Tibialis (R), Posterior Tibialis (L) GI/Abdominal exam: Present: soft. Absent: tenderness Extremities exam: Present: normal inspection. Absent: pedal edema, calf tenderness Neurological exam: Present: alert Psychiatric exam: Present: normal affect, normal mood Skin exam: Present: normal color Course Vital Signs 10/15/23 09:45 Temperature 98.8 F Pulse Rate 80 Respiratory 18 Rate Blood Pressure 109/75 O2 Sat by Pulse 99 Oximetry EKG Findings - EKG Results: EKG: interpreted by ERMD, sinus rhythm, normal axis, normal QRS, normal ST/T Medical Decision Making - Medical Decision Making Was pt. sent in by a medical professional or institution (, ANDREAS, PET COUNSELOR, urgent care, hospital, or [facility]...) When possible be specific @ -No Did you speak to anyone other than the patient for history (EMS, parent, family, police, friend...)? What history was obtained from this source @ -Male is present and helps provide history including abnormal recent stress Did you review nursing and triage notes (agree or disagree)? Why? @ -I reviewed and agree with nursing and triage notes Were old charts reviewed (outside hosp., previous admission, EMS record, old EKG, old radiological studies, urgent care reports/EKG's, [facility] records)? Report findings @ -Differential Chest Pain: Stable Angina, Unstable Angina, STEMI, NSTEMI Aortic Dissection, Pneumothorax, Musculoskeletal, Esophageal Spasm GERD, Cholecystitis, Pancreatitis, Zoster, this is not meant to be an Differential Diagnosis (chest pain, altered mental status, abdominal pain women, abdominal pain men, vaginal bleeding, weakness, fever, dyspnea, syncope, headache, dizziness, GI bleed, back pain, seizure, CVA, palpatations, mental health, musculoskeletal)? @ -Differential Chest Pain: Stable Angina, Unstable Angina, STEMI, NSTEMI Aortic Dissection, Pneumothorax, Musculoskeletal, Esophageal Spasm GERD, Cholecystitis, Pancreatitis, Zoster, this is not meant to be an all-inclusive list. EKG interpreted by me (3pts min.). @ -As above X-rays interpreted by me (1pt min.). @ -Chest x-ray shows no acute process CT interpreted by me (1pt min.). @ -None done U/S interpreted by me (1pt. min.). @ -None done What testing was considered but not performed or refused? (CT, X-rays, U/S, labs)? Why? @ -None What meds were considered but not given or refused? Why? @ -None Did you discuss the management of the patient with other professionals (pro fessionals i.e. , ANDREAS, PET COUNSELOR, lab, RT, psych nurse, social media sr strategy manager, foxpro developer, teacher, returning officer, case mgr)? Give summary @ -Case was discussed with sound physician Dr. Griffin who will admit covering Dr. Cabrera Was smoking cessation discussed for >3mins.? @ -No Was critical care preformed (if so, how long)? @ -No Were there social determinants of health that impacted care today? How? ([place] elessness, low income, unemployed, alcoholism, drug addiction, transportation, low edu. Level, literacy, decrease access to med. care, group home, rehab)? @ -No Was there de-escalation of care discussed even if they declined (Discuss DNR or withdrawal of care, Hospice)? DNR status @ -No What co-morbidities impacted this encounter? (DM, HTN, Smoking, COPD, CAD, Cancer, CVA, ARF, Chemo, Hep., AIDS, mental health diagnosis, sleep apnea, morbid obesity)? @ -Recent abnormal stress test Was patient admitted / discharged? Hospital course, mention meds given and route, prescriptions, significant lab abnormalities, going to OR and other pertinent info. @ -Patient has had recurrent symptoms, exertional with recent abnormal stress test. Patient will be admitted with cardiac consult. Admission orders written Undiagnosed new problem with uncertain prognosis? @ -No Drug Therapy requiring intensive monitoring for toxicity (Heparin, Nitro, Insulin, Cardizem)? @ -No Were any procedures done? @ -No Diagnosis/symptom? @ -Chest pain Acute, or Chronic, or Acute on Chronic? @ -Acute Uncomplicated (without systemic symptoms) or Complicated (systemic symptoms)? @ -Default Side effects of treatment? @ -No Exacerbation, Progression, or Severe Exacerbation? @ -No Poses a threat to life or bodily function? How? (Chest pain, USA, VT, pneumonia, PE, COPD, DKA, ARF, appy, cholecystitis, CVA, Diverticulitis, Homicidal, Suicidal, threat to staff... and all critical care pts) @ -Threat to cardiac function - Lab Data Result diagrams: 10/15/23 10:39 10/15/23 10:39 Lab Results 10/15/23 10/15/23 10/15/23 Range/Units 10:39 10:39 10:39 WBC 6.9 (3.8-10.6) k/uL RBC 4.17 (3.80-5.40) m/uL Hgb 13.0 (11.4-16.0) gm/dL Hct 40.8 (34.0-46.0) % MCV 97.9 (80.0-100.0) fL MCH 31.3 (25.0-35.0) pg MCHC 31.9 (31.0-37.0) g/dL RDW 12.7 (11.5-15.5) % Plt Count 213 (150-450) k/uL MPV 9.4 Neutrophils % 62 % Lymphocytes % 27 % Monocytes % 5 % Eosinophils % 3 % Basophils % 0 % Neutrophils # 4.3 (1.3-7.7) k/uL Lymphocytes # 1.9 (1.0-4.8) k/uL Monocytes # 0.4 (0-1.0) k/uL Eosinophils # 0.2 (0-0.7) k/uL Basophils # 0.0 (0-0.2) k/uL PT (10.0-12.5) sec INR (<1.2) APTT (22.0-30.0) sec D-Dimer (<0.60) mg/L FEU Sodium 139 (137-145) mmol/L Potassium 4.3 (3.5-5.1) mmol/L Chloride 112 H (98-107) mmol/L Carbon Dioxide 24 (22-30) mmol/L Anion Gap 3 mmol/L BUN 12 (7-17) mg/dL Creatinine 0.74 (0.52-1.04) mg/dL Est GFR (CKD-EPI)AfAm >90 (>60 ml/min/1.73 sqM) Est GFR (CKD-EPI)NonAf >90 (>60 ml/min/1.73 sqM) Glucose 72 L (74-99) mg/dL Calcium 8.6 (8.4-10.2) mg/dL Magnesium 2.1 (1.6-2.3) mg/dL Total Bilirubin 0.4 (0.2-1.3) mg/dL AST 23 (14-36) U/L ALT 17 (4-34) U/L Alkaline Phosphatase 76 (38-126) U/L Troponin I <0.012 (0.000-0.034) ng/mL NT-Pro-B Natriuret Pep 113 pg/mL Total Protein 6.6 (6.3-8.2) g/dL Albumin 3.8 (3.5-5.0) g/dL 10/15/23 Range/Units 11:00 WBC (3.8-10.6) k/uL RBC (3.80-5.40) m/uL Hgb (11.4-16.0) gm/dL Hct (34.0-46.0) % MCV (80.0-100.0) fL MCH (25.0-35.0) pg MCHC (31.0-37.0) g/dL RDW (11.5-15.5) % Plt Count (150-450) k/uL MPV Neutrophils % % Lymphocytes % % Monocytes % % Eosinophils % % Basophils % % Neutrophils # (1.3-7.7) k/uL Lymphocytes # (1.0-4.8) k/uL Monocytes # (0-1.0) k/uL Eosinophils # (0-0.7) k/uL Basophils # (0-0.2) k/uL PT 10.7 (10.0-12.5) sec INR 1.0 (<1.2) APTT 24.4 (22.0-30.0) sec D-Dimer 0.48 (<0.60) mg/L FEU Sodium (137-145) mmol/L Potassium (3.5-5.1) mmol/L Chloride (98-107) mmol/L Carbon Dioxide (22-30) mmol/L Anion Gap mmol/L BUN (7-17) mg/dL Creatinine (0.52-1.04) mg/dL Est GFR (CKD-EPI)AfAm (>60 ml/min/1.73 sqM) Est GFR (CKD-EPI)NonAf (>60 ml/min/1.73 sqM) Glucose (74-99) mg/dL Calcium (8.4-10.2) mg/dL Magnesium (1.6-2.3) mg/dL Total Bilirubin (0.2-1.3) mg/dL AST (14-36) U/L ALT (4-34) U/L Alkaline Phosphatase (38-126) U/L Troponin I (0.000-0.034) ng/mL NT-Pro-B Natriuret Pep pg/mL Total Protein (6.3-8.2) g/dL Albumin (3.5-5.0) g/dL Disposition Clinical Impression: Chest pain Disposition: ADMITTED IP TO THIS HOSP Is patient prescribed a controlled substance at d/c from ED?: No Time of Disposition: 11:36
[2023-10-15 10:43] LABS: Basophils % (A) 0 %; Eosinophils # (A) 0.2 k/uL (0-0.7); Eosinophils % (A) 3 %; HCT 40.8 % (34.0-46.0); Lymphocytes # (A) 1.9 k/uL (1.0-4.8); Lymphocytes % (A) 27 %; MCH 31.3 pg (25.0-35.0); MCHC 31.9 g/dL (31.0-37.0); MCV 97.9 fL (80.0-100.0); Mean Platelet Volume 9.4; Monocytes # (A) 0.4 k/uL (0-1.0); Monocytes % (A) 5 %; Neutrophils # (A) 4.3 k/uL (1.3-7.7); Neutrophils % (A) 62 %; Platelet Count 213 k/uL (150-450); RBC 4.17 m/uL (3.80-5.40); RDW 12.7 % (11.5-15.5); WBC 6.9 k/uL (3.8-10.6)
[2023-10-15] MEDS: ASPIRIN 81 MG PO STA (10:44)
[2023-10-15] MEDS: NITROGLYCERIN OINT 1 INCH/GM PACKET TOPICAL STA (10:44)
[2023-10-15 10:57] LABS: ALT 17 U/L (4-34); AST 23 U/L (14-36); African American GFR (CKD) >90 (>60 ml/min/1.73 sqM); Albumin 3.8 g/dL (3.5-5.0); Alkaline Phosphatase 76 U/L (38-126); Anion Gap 3 mmol/L; Blood Urea Nitrogen 12 mg/dL (7-17); Calcium 8.6 mg/dL (8.4-10.2); Carbon Dioxide 24 mmol/L (22-30); Chloride 112 mmol/L (98-107); Glucose 72 mg/dL (74-99); Magnesium 2.1 mg/dL (1.6-2.3); Non-African American GFR(CKD) >90 (>60 ml/min/1.73 sqM); Potassium 4.3 mmol/L (3.5-5.1); Sodium 139 mmol/L (137-145); Total Bilirubin 0.4 mg/dL (0.2-1.3); Total Protein 6.6 g/dL (6.3-8.2)
[2023-10-15 11:06] LABS: NT-Pro-B-Type Natriuretic Pept 113 pg/mL
--- NOTE | 2023-10-15 11:13 | XR ---
EXAMINATION TYPE: XR chest 2V DATE OF EXAM: 10/15/2023 COMPARISON: 07/05/2023 HISTORY: 48-year-old female with chest pain TECHNIQUE: PA and lateral views FINDINGS: The cardiomediastinal silhouette, aorta, and pulmonary vasculature are within normal limits. Some str ezio atelectasis at the right base. Otherwise, lungs and pleural spaces are clear. IMPRESSION: No acute cardiopulmonary process.
[2023-10-15 11:30] LABS: Partial Thromboplastin Time 24.4 sec (22.0-30.0); Prothrombin Time 10.7 sec (10.0-12.5)
[2023-10-15] MEDS ORDERED: NITROGLYCERIN SL TABS 0.4 MG TAB SUBLINGUAL PRN ×3 (11:37→12:50)
[2023-10-15] MEDS: NITROGLYCERIN OINT 1 INCH/GM PACKET TOPICAL SCH (11:53)
[2023-10-15] MEDS ORDERED: HEPARIN SODIUM 1,000 UN/ML (10ML VL) IV PRN (12:05)
[2023-10-15] MEDS: HEPARIN SODIUM 1,000 UN/ML (10ML VL) IV ONE ×2 (12:25→14:55)
[2023-10-15] MEDS: HEPARIN SOD,PORK IN 0.45% NACL 25,000 UNIT in 0.45% NACL 1 250ML.BAG IV SCH (12:27)
[2023-10-15] MEDS ORDERED: ALPRAZolam 0.25 MG TAB PO PRN (12:50)
[2023-10-15] MEDS ORDERED: ALPRAZolam 0.5 MG TAB PO PRN (12:50)
--- NOTE | 2023-10-15 13:16 | P.CRDCN ---
History of Present Illness Consult date: 10/15/23 Consult reason: chest pain History of present illness: History of present illness: This is a 48-year-old female patient of Dr. Kinney with past medical history of morbid obesity status post gastric bypass with approximately 20 pound weight loss, family history of premature coronary artery disease with mother having [place] at age 46 and at age 69, abnormal EKG. She has been seen in the office by Dr. Kinney with last visit on 10/12/2023. And at that time patient had chest tightness associated with exertion. EKG was sinus rhythm with nonspecific inferior T wave inversions. Patient underwent stress echocardiogram and echocardiogram. EF was found to be 55% with mild aortic and tricuspid regurgitation. Patient also has been feeling more fatigued more shortness of breath with exertion and heart catheterization authorization was denied by her insurance company. A stress echocardiogram also was denied by her insurance company. She finally went for a exercise stress test where she walked for 6 minutes developed chest pain 710 and had to stop the testing. There were nonspecific stress EKG portion secondary to baseline EKG abnormalities. Patient was started on metoprolol and noticed some improvement of her symptoms. She was then scheduled for cardiac catheterization which has been delayed by her insurance until November 08. Patient states that she was having chest pressure that had become significantly worse over the past 3 days. She also developed numbness to her fingers on the right from her shoulder down to her fingertips. She also experienced nausea. All symptoms were improved with nitroglycerin and the numbness to her right arm completely relieved. Patient is seen today in the emergency center. Discussed option of undergoing cardiac catheterization which she is in agreement to move forward with. Dr. Kinney was contacted and this was scheduled for today. EKG sinus rhythm with nonspecific T wave change Chest x-ray: No acute findings Laboratory studies: CBC, INR, D-dimer all within normal limits. CMP unremarkable. Troponin negative x 1. proBNP 113. Home cardiac medications: Amlodipine 2.5 mg daily, Toprol XL 12.5 mg daily, Nitrostat as needed Review Of Systems: At the time of my exam: CONSTITUTIONAL: Denies fever or chills. HEENT: Denies blurred vision, vision changes, or eye pain. Denies hemoptysis CARDIOVASCULAR: Reports chest pain. Denies orthopnea. Denies PND. Denies palpita tions RESPIRATORY: Denies shortness of breath. GASTROINTESTINAL: Denies abdominal pain. Denies nausea or vomiting. HEMATOLOGIC: Denies bleeding disorders. GENITOURINARY: Denies any blood in urine. SKIN: Denies pruitis. Denies rash. Physical examination: Gen: This is a 48-year-old female in no acute distress. VS: reviewed, blood pressure 109/75, heart rate 80, pulse ox 99% on room air, afebrile. HEENT: Head is atraumatic, normocephalic. Pupils equal, round. Sclerae is anicteric. NECK: Supple. No JVD. LUNGS: Clear to auscultation. No wheezes or rhonchi. No intercostal retractions. HEART: Regular rate and rhythm. No murmur. ABDOMEN: Soft No tenderness. EXTREMITIES: No pedal edema. No calf tenderness. NEUROLOGICAL: Patient is awake, alert and oriented x3. Assessment: Chest pain relieved with nitroglycerin, recent abnormal exercise stress test History of morbid obesity status post gastric bypass Family history of premature coronary artery disease Plan: Resume patient's home cardiac medications Schedule patient for cardiac catheterization today with Dr. Kinney Start patient on IV fluids 0.9 normal saline at 75 cc/h N.p.o. Further recommendations to follow based upon clinical course Thank you kindly for this consultation. Nurse practitioner note has been reviewed, I agree with documented findings and plan of care. Patient was seen and examined. Past Medical History Past Medical History: Asthma, Seizure Disorder Additional Past Medical History / Comment(s): asthma as a child, hx of ruptured gallbladder with + hepatitis c, anemia., Gastric Bypass (2011). States having vomiting, stomach pains and loose stools. last seizure 2014. History of Any Multi-Drug Resistant Organisms: None Reported Past Surgical History: Adenoidectomy, Appendectomy, Bariatric Surgery, Bowel Resection, Cholecystectomy, Tonsillectomy, Tubal Ligation, Uterine Ablation Additional Past Surgical History / Comment(s): ovarian cyst removal, Gastric byp ass (2011) D&C , ovaries/fallopian tubes removed, panniculectomy 04/2022. panniculectomy 05-04-22 Past Anesthesia/Blood Transfusion Reactions: Motion Sickness, Postoperative Nausea & Vomiting (PONV) Additional Past Anesthesia/Blood Transfusion Reaction / Comment(s): HX OF BLOOD TRANSFUSION - NO REACTION Past Psychological History: Anxiety, Depression Smoking Status: Former smoker Past Alcohol Use History: None Reported Past Drug Use History: Marijuana - Past Family History Mother Family Medical History: Cancer Additional Family Medical History / Comment(s): endometrial and breast cancer Father Family Medical History: Cancer Additional Family Medical History / Comment(s): esophageal cancer Medications and Allergies Home Medications Medication Instructions Recorded Confirmed Type Estrogens, Conjugated [Premarin] 0.3 mg PO DAILY 10/18/21 10/15/23 History FLUoxetine HCL [PROzac] 10 mg PO DAILY 10/18/21 10/15/23 History Cariprazine HCl [Vraylar] 1.5 mg PO DAILY 07/05/23 10/15/23 History medroxyPROGESTERone [Provera] 2.5 mg PO DAILY 07/05/23 10/15/23 History Metoprolol Succinate (ER) [Toprol 12.5 mg PO DAILY 10/15/23 10/15/23 History Xl] Nitroglycerin Sl Tabs [Nitrostat] 0.4 mg SUBLINGUAL Q5M PRN 10/15/23 10/15/23 History amLODIPine [Norvasc] 2.5 mg PO DAILY 10/15/23 10/15/23 History Allergies Allergy/AdvReac Type Severity Reaction Status Date / Time cephalexin monohydrate Allergy Rash/Hives Verified 10/15/23 11:27 [From Keflex] erythromycin base Allergy Rash/Hives Verified 10/15/23 11:27 [Erythromycin Base] meperidine [From Demerol] Allergy Rash/Hives Verified 10/15/23 11:27 metoclopramide HCl Allergy Rash/Hives Verified 10/15/23 11:27 [From Reglan] ibuprofen AdvReac Nausea & Verified 10/15/23 11:27 Vomiting trazodone AdvReac night Verified 10/15/23 11:27 terrors Physical Exam Vitals: Vital Signs Temp Pulse Resp BP Pulse Ox 10/15/23 09:45 98.8 F 80 18 109/75 99 Intake and Output 10/14/23 10/15/23 10/15/23 22:59 06:59 14:59 Other: Weight 90.718 kg Results 10/15/23 10:39 10/15/23 10:39 Cardiac Enzymes 10/15/23 10/15/23 Range/Units 10:39 10:39 AST 23 (14-36) U/L Troponin I <0.012 (0.000-0.034) ng/mL Coagulation 10/15/23 Range/Units 11:00 PT 10.7 (10.0-12.5) sec APTT 24.4 (22.0-30.0) sec CBC 10/15/23 Range/Units 10:39 WBC 6.9 (3.8-10.6) k/uL RBC 4.17 (3.80-5.40) m/uL Hgb 13.0 (11.4-16.0) gm/dL Hct 40.8 (34.0-46.0) % Plt Count 213 (150-450) k/uL Comprehensive Metabolic Panel 10/15/23 Range/Units 10:39 Sodium 139 (137-145) mmol/L Potassium 4.3 (3.5-5.1) mmol/L Chloride 112 H (98-107) mmol/L Carbon Dioxide 24 (22-30) mmol/L BUN 12 (7-17) mg/dL Creatinine 0.74 (0.52-1.04) mg/dL Glucose 72 L (74-99) mg/dL Calcium 8.6 (8.4-10.2) mg/dL AST 23 (14-36) U/L ALT 17 (4-34) U/L Alkaline Phosphatase 76 (38-126) U/L Total Protein 6.6 (6.3-8.2) g/dL Albumin 3.8 (3.5-5.0) g/dL Current Medications Generic Name Dose Route Start Last Admin Trade Name Aram PRN Reason Stop Dose Admin Amlodipine Besylate 2.5 mg 10/16/23 09:00 Amlodipine 2.5 Mg Tab PO DAILY [facility] Aspirin 81 mg 10/16/23 09:00 Aspirin 81 Mg PO DAILY [facility] Estrogens Conjugated 0.3 mg 10/16/23 09:00 Estrogens, Conjugated 0.3 Mg Tab PO DAILY [facility] Fluoxetine HCl 10 mg 10/16/23 09:00 Fluoxetine Hcl 10 Mg Cap PO DAILY [facility] Heparin Sodium (Porcine) 0 unit 10/15/23 12:05 Heparin Sodium 1,000 Un/Ml (10ml Vl) IV PER PROTOCOL PRN Low PTT Protocol Heparin Sodium/Sodium Chloride 250 mls @ 10 mls/hr 10/15/23 12:15 10/15/23 12:27 25,000 unit/ Sodium Chloride IV 11.023 units/kg/hr .Q24H [facility] 10 mls/hr Administration Protocol 11.023 UNITS/KG/HR Medroxyprogesterone Acetate 2.5 mg 10/16/23 09:00 Medroxyprogesterone 2.5 Mg Tab PO DAILY [facility] Metoprolol Succinate 12.5 mg 10/16/23 09:00 Metoprolol Succinate (Er) 25 Mg Tab.Er.24h PO DAILY [facility] Nitroglycerin 0.4 mg 10/15/23 11:37 Nitroglycerin Sl Tabs 0.4 Mg Tab SUBLINGUAL Q5M PRN Chest Pain Nitroglycerin 1 inch 10/15/23 12:00 10/15/23 11:53 Nitroglycerin Oint 1 Inch/Gm Packet TOPICAL Not Given Q6HR [facility] Cariprazine Hcl [ 1.5 mg 10/16/23 09:00 Vraylar] 1.5 Mg PO Capsule DAILY [facility] Intake and Output 10/14/23 10/15/23 10/15/23 22:59 06:59 14:59 Other: Weight 90.718 kg Patient Weight 10/16/23 06:59 Weight 90.718 kg 10/15/23 10:39 10/15/23 10:39
[2023-10-15] MEDS: ASPIRIN 325 MG TAB PO STA (13:47)
[2023-10-15] MEDS: ATORVASTATIN 80 MG TAB PO STA (13:47)
[2023-10-15] MEDS: SODIUM CHLORIDE 0.9% 1,000 ML IV SCH (13:48)
[2023-10-15] MEDS: IV FLUID CONTINUATION 1,000 ML IV ONE (14:28)
[2023-10-15] MEDS: fentaNYL (PF) 50 MCG/ML 2 ML AMP IVP ONE (14:45)
[2023-10-15] MEDS: MIDAZOLAM 2 MG/2 ML VIAL IVP ONE (14:45)
[2023-10-15] MEDS: LIDOCAINE 1% INJ 10MG/ML (20 ML MDV) SQ ONE (14:53)
[2023-10-15] MEDS: VERAPAMIL SYRINGE (5 MG/10 ML) INTRAARTER ONE (14:54)
[2023-10-15] MEDS: IOPAMIDOL-370 100ML BTL INJ ONE (15:00)
--- NOTE | 2023-10-15 15:02 | P.CARDCATH ---
Description of Procedure: PROCEDURES PERFORMED: Left heart catheterization, bilateral coronary angiography, ultrasound guided arterial access INDICATION: Abnormal stress test, atypical chest pain CONSENT:I have discussed the risks, benefits and alternative therapies for the above-mentioned procedure and for both sedation/analgesia as well as necessary blood product administration, if indicated, as they pertain to this patient. The patient has indicated understanding and acceptance of the risks and procedures discussed. PROCEDURE: After the risks, benefits and alternatives of the above mentioned procedure explained in detail with the patient, informed consent was obtained. Patient was taken to the catheterization lab and prepped and draped in usual fashion. Ultrasound guidance was used to assess for arterial access. 1% lidocaine was used to anesthetize the right radial artery. A 6-[place] sheath was placed in the right radial artery using modified Seldinger technique and ultrasound guidance. Left coronary angiography was performed with a 5-[place] JL 3.5 catheter and right coronary angiography was performed with a 5-[place] FR5 catheter in various views. A 5-[place] FR5 catheter was inserted into the left ventricle and pressure measurements were obtained. The right radial sheath was removed and a TR band was placed with hemostasis achieved. The patient tolerated the procedure well. Patient was transported back to the post catheterization holding area in stable condition. Conscious Sedation: Patient was monitored under the direct supervision of myself for conscious sedation using Versed and fentanyl for a total duration of 7 minutes HEMODYNAMICS: Aorta: 91/55 LV: 100/1, LVEDP 4 SELECTIVE CORONARY ARTERIOGRAPHY: LEFT MAIN: The left main is a large caliber vessel which bifurcates into the LAD and circumflex. There is no significant stenosis. LEFT ANTERIOR DESCENDING CORONARY ARTERY: LAD is a large caliber vessel which wraps around to the apex. There is no significant stenosis. LEFT CIRCUMFLEX CORONARY ARTERY: Left circumflex is a moderate caliber vessel without significant stenosis. RIGHT CORONARY ARTERY: The right coronary artery is a large caliber vessel which gives off a PDA and PLV branch and is the dominant vessel. There is no significant stenosis. FINAL IMPRESSION: 1. Normal coronary arteries as described above. 2. Low normal left sided filling pressures PLAN: 1. Aggressive risk factor modification per most recent ACC/AHA guidelines. 2. Follow-up in the office in 1-2 weeks.
--- NOTE | 2023-10-15 15:04 | P.HPIM ---
History of Present Illness H&P Date: 10/15/23 Chief Complaint: chest pain 48-year-old woman with medical history of mood disorder, hypertension presented for evaluation of chest pain. Patient says that she has been having some chest pain for approximately 1 month. She describes it as pressure-like with the sensation of "elephant sitting on her chest" associated with some nausea, vomiting. Patient says that she saw her drier belt conveyor for this and was sent for a stress test which was abnormal and therefore was scheduled for left heart catheterization in approximately 1 week. However, she noted that her chest pain has become more frequent and longer in duration, and now is experiencing this at rest. She did try some nitroglycerin which resolved under her tongue and this resolved her pain and 30 minutes. She presented today because she was concerned she could no longer wait for left heart catheterization. She is concerned because there mom passed from major OR at the age of 48. She denies fevers, chills, palpitations, syncope, abdominal pain. In the emergency room, patient was afebrile, 109/75, heart rate 80, 99% room air. CBC is unremarkable. Basic metabolic panel is unremarkable. Liver functi on tests are unremarkable. Troponin was less than 0.012 then trended to less than 0.012. Coags are unremarkable. D-dimer is 0.48. BNP was 113. EKG shows normal sinus rhythm with normal axis and no evidence of ischemia. Chest x-ray shows clear parenchyma bilaterally. Patient was admitted to observation for chest pain rule out. All Systems reviewed and pertinent positives and negatives noted in HPI, all other symptoms are negative Gen: In NAD, non-toxic HEENT: normocephalic, atraumatic, hearing acuity is intant, mucous membranes moist CVS: perfusing all extremities well, no pitting edema, Respiratory: symmetric chest expansion, no accessory muscle use, GI: soft, NTTP, ND, : no suprapubic tenderness, no CVA tenderness MSK/Derm: no rashes, cyanosis Neuro: CN II-XII intact, no motor weakness, Psych: cooperative, euthymic mood, judgment and insight is intact Assessment/plan Unstable angina -Admit to observation with telemetry -Cardiology consult -Trend troponins -Aspirin, statin -Metoprolol -Heparin drip -Echocardiogram is deferred to cardiology team, I suspect she's had a recent echo, but these records are unavailable to me at this time -Lipid panel, A1c, TSH Mood disorder Hypertension -Home medications reviewed and reconciled Patient is full code Past Medical History Past Medical History: Asthma, Seizure Disorder Additional Past Medical History / Comment(s): asthma as a child, hx of ruptured gallbladder with + hepatitis c, anemia., Gastric Bypass (2011). States having vomiting, stomach pains and loose stools. last seizure 2014. History of Any Multi-Drug Resistant Organisms: None Reported Past Surgical History: Adenoidectomy, Appendectomy, Bariatric Surgery, Bowel Resection, Cholecystectomy, Tonsillectomy, Tubal Ligation, Uterine Ablation Additional Past Surgical History / Comment(s): ovarian cyst removal, Gastric bypass (2011) D&C , ovaries/fallopian tubes removed, panniculectomy 04/2022. panniculectomy 05-04-22 Past Anesthesia/Blood Transfusion Reactions: Motion Sickness, Postoperative Nausea & Vomiting (PONV) Additional Past Anesthesia/Blood Transfusion Reaction / Comment(s): HX OF BLOOD TRANSFUSION - NO REACTION Past Psychological History: Anxiety, Depression Smoking Status: Former smoker Past Alcohol Use History: None Reported Past Drug Use History: Marijuana - Past Family History Mother Family Medical History: Cancer Additional Family Medical History / Comment(s): endometrial and breast cancer Father Family Medical History: Cancer Additional Family Medical History / Comment(s): esophageal cancer Medications and Allergies Home Medications Medication Instructions Recorded Confirmed Type Estrogens, Conjugated [Premarin] 0.3 mg PO DAILY 10/18/21 10/15/23 History FLUoxetine HCL [PROzac] 10 mg PO DAILY 10/18/21 10/15/23 History Cariprazine HCl [Vraylar] 1.5 mg PO DAILY 07/05/23 10/15/23 History medroxyPROGESTERone [Provera] 2.5 mg PO DAILY 07/05/23 10/15/23 History Metoprolol Succinate (ER) [Toprol 12.5 mg PO DAILY 10/15/23 10/15/23 History Xl] Nitroglycerin Sl Tabs [Nitrostat] 0.4 mg SUBLINGUAL Q5M PRN 10/15/23 10/15/23 History amLODIPine [Norvasc] 2.5 mg PO DAILY 10/15/23 10/15/23 History Allergies Allergy/AdvReac Type Severity Reaction Status Date / Time cephalexin monohydrate Allergy Rash/Hives Verified 10/15/23 11:27 [From Keflex] erythromycin base Allergy Rash/Hives Verified 10/15/23 11:27 [Erythromycin Base] meperidine [From Demerol] Allergy Rash/Hives Verified 10/15/23 11:27 metoclopramide HCl Allergy Rash/Hives Verified 10/15/23 11:27 [From Reglan] ibuprofen AdvReac Nausea & Verified 10/15/23 11:27 Vomiting trazodone AdvReac night Verified 10/15/23 11:27 terrors Physical Exam Osteopathic Statement: *. No significant issues noted on an osteopathic structural exam other than those noted in the History and Physical/Consult. Vitals: Vital Signs Temp Pulse Resp BP Pulse Ox 10/15/23 09:45 98.8 F 80 18 109/75 99 Intake and Output 10/14/23 10/15/23 10/15/23 22:59 06:59 14:59 Other: Weight 90.718 kg Results CBC & Chem 7: 10/15/23 10:39 10/15/23 10:39 Labs: Abnormal Lab Results - Last 24 Hours (Table) 10/15/23 Range/Units 10:39 Chloride 112 H (98-107) mmol/L Glucose 72 L (74-99) mg/dL
--- NOTE | 2023-10-15 17:46 | P.DS ---
Providers Date of admission: 10/15/23 11:37 Expected date of discharge: 10/15/23 Attending physician: Rafa Rolle MD Consults: 10/15/23 11:37 Consult Physician Urgent Consulting Provider: Benjamin Govea Consult Reason/Comments: cp Do you want consulting provider notified?: Yes Primary care physician: Hayder Cabrera Hospital Course: Unstable angina Mood disorder Hypertension Hospital Course: 48-year-old woman with medical history of mood disorder, hypertension presented for evaluation of chest pain. In the emergency room, patient was afebrile, 109/75, heart rate 80, 99% room air. CBC is unremarkable. Basic metabolic panel is unremarkable. Liver function tests are unremarkable. Troponin was less than 0.012 then trended to less than 0.012. Coags are unremarkable. D- dimer is 0.48. BNP was 113. EKG shows normal sinus rhythm with normal axis and no evidence of ischemia. Chest x-ray shows clear parenchyma bilaterally. Patient was admitted to observation for chest pain rule out. Patient was seen by cardiology and recommended undergo left heart catheterization. The catheterization was completed today and was shown to be negative for coronary disease. Patient was subsequently cleared for discharge home with risk factor modification. I spent 32 minutes coordinating this discharge Gen: In NAD, non-toxic HEENT: normocephalic, atraumatic, hearing acuity is intant, mucous membranes moist CVS: perfusing all extremities well, no pitting edema, Respiratory: symmetric chest expansion, no accessory muscle use, GI: soft, NTTP, ND, : no suprapubic tenderness, no CVA tenderness MSK/Derm: no rashes, cyanosis Neuro: CN II-XII intact, no motor weakness, Psych: cooperative, euthymic mood, judgment and insight is intact Patient Condition at Discharge: Good Plan - Discharge Summary Discharge Rx Participant: Yes New Discharge Prescriptions: Continue medroxyPROGESTERone [Provera] 2.5 mg PO DAILY amLODIPine [Norvasc] 2.5 mg PO DAILY Nitroglycerin Sl Tabs [Nitrostat] 0.4 mg SUBLINGUAL Q5M PRN PRN Reason: Chest Pain FLUoxetine HCL [PROzac] 10 mg PO DAILY Estrogens, Conjugated [Premarin] 0.3 mg PO DAILY Cariprazine HCl [Vraylar] 1.5 mg PO DAILY Metoprolol Succinate (ER) [Toprol XL] 12.5 mg PO DAILY Discharge Medication List Estrogens, Conjugated [Premarin] 0.3 mg PO DAILY 10/18/21 [History] FLUoxetine HCL [PROzac] 10 mg PO DAILY 10/18/21 [History] Cariprazine HCl [Vraylar] 1.5 mg PO DAILY 07/05/23 [History] medroxyPROGESTERone [Provera] 2.5 mg PO DAILY 07/05/23 [History] Metoprolol Succinate (ER) [Toprol XL] 12.5 mg PO DAILY 10/15/23 [History] Nitroglycerin Sl Tabs [Nitrostat] 0.4 mg SUBLINGUAL Q5M PRN 10/15/23 [History] amLODIPine [Norvasc] 2.5 mg PO DAILY 10/15/23 [History] Follow up Appointment(s)/Referral(s): Chilo Kinney DO [STAFF PHYSICIAN] - 1 Week Hayder Cabrera MD [Primary Care Provider] - 1-2 days Patient Instructions/Handouts: After Radial Heart Catheterization (GEN) Discharge Disposition: HOME SELF-CARE
[2023-10-15 18:15] VITALS: BP 110/77; PULSE 77; RESP 14; TEMP 98.3
[2023-10-16] MEDS ORDERED: HEPARIN SODIUM,PORCINE 10,000 UNIT in SODIUM CHLORIDE 0.9% 1,000 ML IRRIGATION PRN (07:00)
[2023-10-16] MEDS ORDERED: HEPARIN SODIUM,PORCINE (1 ML) 2,500 UNIT in SODIUM CHLORIDE 0.9% 250 ML IRRIGATION PRN (07:00)
[2023-10-16] MEDS ORDERED: FLUoxetine HCL 10 MG CAP PO SCH (09:00)
[2023-10-16] MEDS ORDERED: ASPIRIN 325 MG TAB PO SCH (09:00)
[2023-10-16] MEDS ORDERED: amLODIPine 2.5 MG TAB PO SCH (09:00)
[2023-10-16] MEDS ORDERED: Cariprazine Hcl [Vraylar] 1.5 MG Capsule PO SCH (09:00)
[2023-10-16] MEDS ORDERED: ESTROGENS, CONJUGATED 0.3 MG TAB PO SCH (09:00)
[2023-10-16] MEDS ORDERED: METOPROLOL SUCCINATE (ER) 25 MG TAB.ER.24H PO SCH (09:00)
[2023-10-16] MEDS ORDERED: ASPIRIN 81 MG PO SCH (09:00)
== END 2023-10-15 18:54 | disposition home or self-care (01) ==
LOC: EC 09:40 → 6NMEDSUR 11:37
PROVIDERS: ADMIT Internal Medicine; ATTEND Internal Medicine
DX: I20.0 Unstable angina (principal); R94.39 Abnormal result of other cardiovascular function study; I08.2 Rheumatic disorders of both aortic and tricuspid valves; I10 Essential (primary) hypertension; E66.01 Morbid (severe) obesity due to excess calories; Z68.32 Body mass index [BMI] 32.0-32.9, adult; R20.0 Anesthesia of skin; F39 Unspecified mood [affective] disorder; Z79.810 Long term (current) use of selective estrogen receptor modulators (SERMs); Z79.3 Long term (current) use of hormonal contraceptives; Z79.899 Other long term (current) drug therapy; Z88.6 Allergy status to analgesic agent; Z88.1 Allergy status to other antibiotic agents; Z88.5 Allergy status to narcotic agent; Z88.8 Allergy status to other drugs, medicaments and biological substances; Z98.84 Bariatric surgery status; Z87.891 Personal history of nicotine dependence; Z82.49 Family history of ischemic heart disease and other diseases of the circulatory system
CPT/HCPCS: 96376; 96365; 96366; 99285; 36415; 93005; 93458; 76937; 85379; 83880; 80053; 83735; 84484; 85025; 85610; 85730; 71046; G0378; C1769; C1894; J2250; J2001; J3010; J1644 ×2; Q9967

== ENCOUNTER → 2023-11-10 | Outpatient (CLI) | payer BC ==
[2023-11-10 16:11] LABS: % Iron Saturation 25.31 (12.00-45.00)
[2023-11-10 16:12] LABS: Ferritin 20.1 ng/mL (10.0-291.0)
== END | disposition home or self-care (01) ==
LOC: LABWHC1 10:39
PROVIDERS: ATTEND Family Medicine
DX: E61.1 Iron deficiency (principal)
CPT/HCPCS: 36415; 82728; 83540; 83550

== ENCOUNTER → 2023-11-12 | Outpatient (CLI) | payer BC ==
--- NOTE | 2023-11-15 18:49 | MM ---
Reason for Exam: Screening (asymptomatic). Last mammogram was performed 1 year(s) and 1 month(s) ago. Patient History: Menarche at age 13. First Full-Term at age 20. Left ovary removed at age 45. Right ovary removed at age 45. Hysterectomy at age 45. Postmenopausal. Currently using Unspecified Hormone, starting at age 45. Mother had breast cancer, left, age 48. Risk Values: Denisse 5 year model risk: 1.7%. NCI Lifetime model risk: 16.9%. Prior Study Comparison: 09/22/2022 Bilateral MG 3D screening mammo w/cad, [facility]. Tissue Density: There are scattered areas of fibroglandular density. Findings: Analyzed By CAD. Benign bilateral oil cyst calcifications. There is no suspicious group of microcalcifications or new suspicious mass in either breast. Overall Assessment: Benign, BI-RAD 2 Management: Screening Mammogram of both breasts in 1 year. . Patient should continue monthly self-breast exams. A clinical breast exam by your physician is recommended on an annual basis. This exam should not preclude additional follow-up of suspicious palpable abnormalities. Note on Denisse scores and lifetime risk: 1. A Denisse score greater than 3% is considered moderate risk. If this is the case, consider specialist referral to assess eligibility for a risk reducing agent. 2. If overall lifetime risk for the development of breast cancer is 20% or higher, the patient may qualify for future screening with alternating mammogram and breast MRI. Electronically signed and approved by: Latonya Willson M.D. Radiologist
== END | disposition home or self-care (01) ==
LOC: RADMAMWWP 07:44
PROVIDERS: ATTEND Family Medicine
DX: Z12.31 Encounter for screening mammogram for malignant neoplasm of breast (principal); Z78.0 Asymptomatic menopausal state; Z80.3 Family history of malignant neoplasm of breast
CPT/HCPCS: 77063; 77067

== ENCOUNTER 2024-05-02 16:28 | Emergency (ER) | payer BC ==
[2024-05-02 16:37] VITALS: BP 126/84; PULSE 71; RESP 18; TEMP 98.7
--- NOTE | 2024-05-02 16:53 | ED ---
Chest Pain HPI - General Source: patient, RN notes reviewed Mode of arrival: ambulatory Limitations: no limitations <Shana Zuleta - Last Filed: 05/02/24 16:52> - General Source: patient, RN notes reviewed, old records reviewed Mode of arrival: ambulatory Limitations: no limitations - History of Present Illness MD Complaint: chest pain -: hour(s) Onset: during rest, during exertion Pain Location: substernal, left chest Pain Radiation: none Severity: moderate Severity scale (1-10): 4 Quality: tightness Consistency: now resolved Improves With: nothing Worsens With: nothing Treatments Prior to Arrival: none <Naga Longo - Last Filed: 05/03/24 13:11> - General Chief Complaint: Chest Pain Stated Complaint: chest pain Time Seen by Provider: 05/02/24 16:40 - History of Present Illness Initial Comments: Quick [id number] female presents emergency room chief complaint of left- sided chest pain described as a pressure and squeezing sensation. States that she took a nitro at approximately 1400. With alleviation of symptoms for an hour and a half. Endorses symptoms of sweating, nausea, shortness of breath with chest pain. denies history of OR. (Shana Zuleta) This is a 48-year-old female to the ER for chest pain left-sided chest pain and tightness, patient does not want further evaluation here at this time she feels better does have recent hospital admission with cardiac catheterization (Naga Longo) - Related Data Home Medications Medication Instructions Recorded Confirmed Estrogens, Conjugated [Premarin] 0.3 mg PO DAILY 10/18/21 10/15/23 FLUoxetine HCL [PROzac] 10 mg PO DAILY 10/18/21 10/15/23 Cariprazine HCl [Vraylar] 1.5 mg PO DAILY 07/05/23 10/15/23 medroxyPROGESTERone [Provera] 2.5 mg PO DAILY 07/05/23 10/15/23 Metoprolol Succinate (ER) [Toprol 12.5 mg PO DAILY 10/15/23 10/15/23 XL] Nitroglycerin Sl Tabs [Nitrostat] 0.4 mg SUBLINGUAL Q5M PRN 10/15/23 10/15/23 amLODIPine [Norvasc] 2.5 mg PO DAILY 10/15/23 10/15/23 Allergies Allergy/AdvReac Type Severity Reaction Status Date / Time cephalexin monohydrate Allergy Rash/Hives Verified 05/02/24 16:37 [From Keflex] erythromycin base Allergy Rash/Hives Verified 05/02/24 16:37 [Erythromycin Base] meperidine [From Demerol] Allergy Rash/Hives Verified 05/02/24 16:37 metoclopramide HCl Allergy Rash/Hives Verified 05/02/24 16:37 [From Reglan] ibuprofen AdvReac Nausea & Verified 05/02/24 16:37 Vomiting trazodone AdvReac night Verified 05/02/24 16:37 terrors Review of Systems ROS Other: All systems not noted in ROS Statement are negative. <Shana Zuleta - Last Filed: 05/02/24 16:52> ROS Other: All systems not noted in ROS Statement are negative. <Naga Longo - Last Filed: 05/03/24 13:11> ROS Statement: Those systems with pertinent positive or pertinent negative responses have been documented in the HPI. Past Medical History Past Medical History: Asthma, Seizure Disorder Additional Past Medical History / Comment(s): asthma as a child, hx of ruptured gallbladder with + hepatitis c, anemia., Gastric Bypass (2011). States having vomiting, stomach pains and loose stools. last seizure 2014. History of Any Multi-Drug Resistant Organisms: None Reported Past Surgical History: Adenoidectomy, Appendectomy, Bariatric Surgery, Bowel Resection, Cholecystectomy, Heart Catheterization, Tonsillectomy, Tubal Ligation, Uterine Ablation Additional Past Surgical History / Comment(s): ovarian cyst removal, Gastric bypass (2011) D&C , ovaries/fallopian tubes removed, panniculectomy 04/2022. panniculectomy 05-04-22 Past Anesthesia/Blood Transfusion Reactions: Motion Sickness, Postoperative Nausea & Vomiting (PONV) Additional Past Anesthesia/Blood Transfusion Reaction / Comment(s): HX OF BLOOD TRANSFUSION - NO REACTION Past Psychological History: Anxiety, Depression Smoking Status: Former smoker Past Alcohol Use History: None Reported Past Drug Use History: Marijuana - Past Family History Mother Family Medical History: Cancer Additional Family Medical History / Comment(s): endometrial and breast cancer Father Family Medical History: Cancer Additional Family Medical History / Comment(s): esophageal cancer <Miguel Zuletaoe - Last Filed: 05/02/24 16:52> General Exam Limitations: no limitations <Miguel Zuletaoe - Last Filed: 05/02/24 16:52> General appearance: alert, in no apparent distress Head exam: Present: atraumatic, normocephalic, normal inspection Eye exam: Present: normal appearance, PERRL, EOMI. Absent: scleral icterus, conjunctival injection, periorbital swelling ENT exam: Present: normal exam, mucous membranes moist Neck exam: Present: normal inspection. Absent: tenderness, meningismus, lymphadenopathy Respiratory exam: Present: normal lung sounds bilaterally. Absent: respiratory distress, wheezes, rales, rhonchi, stridor Cardiovascular Exam: Present: regular rate, normal rhythm, normal heart sounds. Absent: systolic murmur, diastolic murmur, rubs, gallop, clicks GI/Abdominal exam: Present: soft, normal bowel sounds. Absent: distended, tenderness, guarding, rebound, rigid Extremities exam: Present: normal inspection, full ROM, normal capillary refill. Absent: tenderness, pedal edema, joint swelling, calf tenderness Back exam: Present: normal inspection Neurological exam: Present: alert, oriented X3, CN II-XII intact Psychiatric exam: Present: normal affect, normal mood Skin exam: Present: warm, dry, intact, normal color. Absent: rash <Naga Longo - Last Filed: 05/03/24 13:11> - General Exam Comments Initial Comments: Visual Physical Exam Vital signs reviewed General: Well-appearing, nontoxic, no acute distress. Head: Normocephalic, atraumatic Eyes: PERRLA, EOMI ENT: Airway patent Chest: Nonlabored breathing Skin: No visual rash, normal skin tone Neuro: Alert and oriented 3 Musculoskeletal: No gross abnormalities (Song,Shana) Course <Naga Longo - Last Filed: 05/03/24 13:11> Vital Signs 05/02/24 16:33 Temperature 98.7 F Pulse Rate 71 Respiratory 18 Rate Blood Pressure 126/84 O2 Sat by Pulse 100 Oximetry - Reevaluation(s) Reevaluation #1: Medical records reviewed (Naga Longo) Reevaluation #2: Patient feels well and does not want further testing here in the ER (Naga Longo) Reevaluation #3: Was pt. sent in by a medical professional or institution (ANDREAS Bains, DEPUTY SHERIFF BUILDING GUARD, urgent care, hospital, or penitentiary...) When possible be specific @ -no Did you speak to anyone other than the patient for history (EMS, parent, family, police, friend...)? What history was obtained from this source @ -no Did you review nursing and triage notes (agree or disagree)? Why? @ -agree Are old charts reviewed (outside hosp., previous admission, EMS record, old EKG, old radiological studies, urgent care reports/EKG's, penitentiary records)? Report findings @ -yes Differential Diagnosis (chest pain, altered mental status, abdominal pain women, abdominal pain men, vaginal bleeding, weakness, fever, dyspnea, syncope, headache, dizziness, GI bleed, back pain, seizure, CVA, palpatations, mental health, musculoskeletal)? @ -prior EKG interpreted by me (3pts min.). @ -yes X-rays interpreted by me (1pt min.). @ -yes negative for acute disease CT interpreted by me (1pt min.). @ -no U/S interpreted by me (1pt. min.). @ -no What testing was considered but not performed or refused? (CT, X-rays, U/S, labs)? Why? @ -none What meds were considered but not given or refused? Why? @ -none Did you discuss the management of the patient with other professionals (ethan perez i.e. ANDREAS Bains, DEPUTY SHERIFF BUILDING GUARD, lab, RT, psych nurse, bilingual social worker, electric meter tester, teacher, loan review officer, family independence case manager)? Give summary @ -no Was smoking cessation discussed for >3mins.? @ -no Was critical care preformed (if so, how long)? @ -no Were there social determinants of health that impacted care today? How? (Homelessness, low income, unemployed, alcoholism, drug addiction, transportation, low edu. Level, literacy, decrease access to med. care, fci, rehab)? @ -none Was there de-escalation of care discussed even if they declined (Discuss DNR or withdrawal of care, Hospice)? DNR status @ -no What co-morbidities impacted this encounter? (DM, HTN, Smoking, COPD, CAD, Cancer, CVA, ARF, Chemo, Hep., AIDS, mental health diagnosis, sleep apnea, morbid obesity)? @ -none Was patient admitted / discharged? Hospital course, mention meds given and route, prescriptions, significant lab abnormalities, going to OR and other pertinent info. @ - Undiagnosed new problem with uncertain prognosis? @ -no Drug Therapy requiring intensive monitoring for toxicity (Heparin, Nitro, Insulin, Cardizem)? @ -no Were any procedures done? @ -no Diagnosis/symptom? @ - Acute, or Chronic, or Acute on Chronic? @ -Acute Uncomplicated (without systemic symptoms) or Complicated (systemic symptoms)? @ -Complicated Side effects of treatment? @ -no Exacerbation, Progression, or Severe Exacerbation? @ -exacerbation Poses a threat to life or bodily function? How? (Chest pain, USA, OR, pneumonia, PE, COPD, DKA, ARF, appy, cholecystitis, CVA, Diverticulitis, Homicidal, Suicidal, threat to staff... and all critical care pts) @ -yes (Naga Longo) Reevaluation #4: Differential Chest Pain: Stable Angina, Unstable Angina, STEMI, NSTEMI Aortic Dissection, Pneumothorax, Musculoskeletal, Esophageal Spasm GERD, Cholecystitis, Pancreatitis, Zoster, this is not meant to be an all-inclusive list. (Naga Longo) Chest Pain MDM <Shana Zuleta - Last Filed: 05/02/24 16:52> <Naga Longo - Last Filed: 05/03/24 13:11> - MDM I completed the quick note portion of this chart signed Shana Zuleta PA-C (Shana Zuleta) 48 female for chest pain, patient does have a prior recent hospital admission with cardiac catheterization, states at this point she feels well here in the ER and can be discharged home (Naga Longo) Disposition <Shana Zuleta - Last Filed: 05/02/24 16:52> Is patient prescribed a controlled substance at d/c from ED?: No Time of Disposition: 19:00 <Naga Longo - Last Filed: 05/03/24 13:11> Clinical Impression: Atypical chest pain, Panic attack, Chest pain Disposition: HOME SELF-CARE Condition: Undetermined Instructions (If sedation given, give patient instructions): Chest Pain (ED) Referrals: Hayder Cabrera MD [Primary Care Provider] - 1-2 days
--- NOTE | 2024-05-02 17:09 | XR ---
EXAMINATION TYPE: XR chest 2V DATE OF EXAM: 05/02/2024 5:05 PM COMPARISON: Previous chest regress, most recently dated 10/15/2023. CLINICAL INDICATION: Female, 48 years old with history of Chest Pain; [facility] TECHNIQUE: XR chest 2V Frontal and lateral views of the chest. FINDINGS: Lungs/Pleura: There is no evidence of pleural effusion, focal consolidation, or pneumothorax. Pulmonary vascularity: Unremarkable. Heart/mediastinum: Cardiomediastinal silhouette is unremarkable. Musculoskeletal: No acute osseous pathology. Other findings: None IMPRESSION: No acute cardiopulmonary disease/process. [facility], , 05/02/2024 5:06 PM
[2024-05-02 17:41] LABS: Basophils % (A) 0 %; Eosinophils # (A) 0.1 k/uL (0-0.7); Eosinophils % (A) 2 %; HCT 42.2 % (34.0-46.0); HGB 13.8 gm/dL (11.4-16.0); Lymphocytes % (A) 32 %; MCH 31.7 pg (25.0-35.0); MCHC 32.8 g/dL (31.0-37.0); MCV 96.7 fL (80.0-100.0); Mean Platelet Volume 9.4; Monocytes # (A) 0.3 k/uL (0-1.0); Monocytes % (A) 5 %; Neutrophils # (A) 3.7 k/uL (1.3-7.7); Neutrophils % (A) 60 %; Platelet Count 216 k/uL (150-450); RBC 4.36 m/uL (3.80-5.40); RDW 12.9 % (11.5-15.5); WBC 6.2 k/uL (3.8-10.6)
[2024-05-02 17:51] LABS: Partial Thromboplastin Time 24.2 sec (22.0-30.0); Prothrombin Time 11.1 sec (10.0-12.5)
[2024-05-02 18:17] LABS: ALT 15 U/L (4-34); AST 22 U/L (14-36); African American GFR (CKD) >90 (>60 ml/min/1.73 sqM); Albumin 4.2 g/dL (3.5-5.0); Alkaline Phosphatase 91 U/L (38-126); Anion Gap 5 mmol/L; Blood Urea Nitrogen 10 mg/dL (7-17); Calcium 9.5 mg/dL (8.4-10.2); Carbon Dioxide 22 mmol/L (22-30); Chloride 112 mmol/L (98-107); Glucose 92 mg/dL (74-99); Lipase 94 U/L (23-300); Non-African American GFR(CKD) >90 (>60 ml/min/1.73 sqM); Potassium 4.2 mmol/L (3.5-5.1); Sodium 139 mmol/L (137-145); Total Bilirubin 0.5 mg/dL (0.2-1.3); Total Protein 6.9 g/dL (6.3-8.2)
== END 2024-05-02 19:15 | disposition home or self-care (01) ==
LOC: EC 16:28
DX: R07.89 Other chest pain (principal); F41.0 Panic disorder [episodic paroxysmal anxiety]; Z87.891 Personal history of nicotine dependence; Z88.1 Allergy status to other antibiotic agents; Z88.8 Allergy status to other drugs, medicaments and biological substances; Z88.6 Allergy status to analgesic agent
CPT/HCPCS: 36415; 71046; 80053; 83690; 83735; 84484; 85025; 85610; 85730; 93005; 99284

== ENCOUNTER → 2024-07-12 | Outpatient (CLI) | payer BC ==
--- NOTE | 2024-07-12 13:56 | CT ---
EXAMINATION TYPE: CT abdomen pelvis w con DATE OF EXAM: 07/12/2024 COMPARISON: 05/06/2022 CLINICAL INDICATION: Female, 48 years old with history of R10.9 UNSPECIFIED ABDOMINAL PAIN; PHH, cons tipation, nausea and vomiting, history of bowel obstruction and bariartic surgery TECHNIQUE: Performed with Oral Contrast and with IV Contrast, patient injected with 100ML mL of Isovue 300. CT DLP: 1305.[address] CTDI: mGy Automated exposure control for dose reduction was used. FINDINGS: The lung bases are clear. There are postsurgical changes in the GE junction and stomach. There is surgical absence of the gallbladder. There is no biliary ductal dilatation. There is no focal mass or organomegaly involving the liver, pancreas, spleen or adrenal glands. There is no solid renal mass or hydronephrosis and there is homogeneous contrast enhancement of the r enal parenchyma. The caliber the abdominal aorta is normal is no retroperitoneal adenopathy or hemorr suha. The bowel loops are normal in caliber and there is no evidence of dilatation or obstruction. No infla mmatory changes are identified in the bowel wall or mesentery. There are anastomotic sutures in the t ransverse colon. There is no free intraperitoneal air or fluid. No pelvic mass, free fluid, abscess or adenopathy. The osseous structures and soft tissues are intact. IMPRESSION: 1. Postsurgical changes as described above. 2. No acute changes within the abdomen or pelvis [facility], , 07/12/2024 1:54 PM
== END | disposition home or self-care (01) ==
LOC: RADCTMAIN 12:42
PROVIDERS: ATTEND Family Medicine
DX: K59.00 Constipation, unspecified (principal); Z90.49 Acquired absence of other specified parts of digestive tract; Z98.890 Other specified postprocedural states
CPT/HCPCS: 74177; Q9967

== ENCOUNTER → 2024-10-02 | Outpatient (CLI) | payer BC ==
--- NOTE | 2024-10-02 15:10 | US ---
EXAMINATION TYPE: US pelvic complete DATE OF EXAM: 10/02/2024 COMPARISON: 11/29/2019 CLINICAL INDICATION: Female, 49 years old with history of R10.2 PELVIC AND PERINEAL PAIN; HX of bilat eral oophorectomy TECHNIQUE: Transabdominal grayscale sonographic images of the pelvis were acquired. Transvaginal son ographic images were medically necessary to better assess the anatomy. Doppler imaging: Not performed. FINDINGS: Pt was not properly prepped for Pelvic Complete US for today & was told NOT to drink any water, pt wa s okay with transvaginal us for today's exam EXAM MEASUREMENTS: Uterus: 5.5x2.3x cm Endometrial Stripe: 0.5 cm Right Ovary: Surgically absent Left Ovary: Surgically absent 1. Uterus: Anteverted and otherwise wnl CX: Trace fluid along the endocervical canal. 2. Endometrium: wnl 3. Right Ovary: Surgically absent 4. Left Ovary: Surgically absent 5. Bilateral Adnexa: wnl 6. Posterior cul-de-sac: wnl IMPRESSION: 1. Trace fluid along the endocervical canal. Query recent menstruation. Consider short interval follo w-up to reassess. 2. Thin endometrial stripe of 5 mm. 3. Both ovaries are reported to be surgically absent. [facility], Workstation: [id number], 10/02/2024 3:07 PM
== END | disposition home or self-care (01) ==
LOC: RADUSWWP 14:08
PROVIDERS: ATTEND Family Medicine
DX: R10.2 Pelvic and perineal pain (principal); Z90.722 Acquired absence of ovaries, bilateral
CPT/HCPCS: 76830

== ENCOUNTER 2024-11-10 07:26 | Day surgery (SDC) | payer BC ==
[2024-11-08 16:39] VITALS: BMI 29.0
[2024-11-10] MEDS: LACTATED RINGERS 1,000 ML IV SCH (07:55)
[2024-11-10] MEDS: IV FLUID CONTINUATION 1,000 ML IV ONE ×2 (07:57→08:29)
[2024-11-10 08:00] VITALS: TEMP 97.2
[2024-11-10] MEDS ORDERED: PROPOFOL 10 MG/ML 20 ML VIAL IV ONE (08:30)
--- NOTE | 2024-11-10 08:44 | P.PCN ---
Date of Procedure: 11/10/24 Procedure(s) Performed: BRIEF HISTORY: Patient is a 49-year-old pleasant white female scheduled for an elective colonoscopy as a part of evaluation change in bowel habits for the last 2 months duration. She has been having alternating diarrhea and constipation. No rectal bleeding. PROCEDURE PERFORMED: Colonoscopy with snare polypectomy. PREOPERATIVE DIAGNOSIS: Change in bowel habits. IV sedation per Anesthesia. PROCEDURE: After informed consent was obtained, the patient, was brought into the endoscopy unit. IV sedation was administered by Anesthesia under continuous monitoring. Digital rectal examination was normal. Initially the Olympus CF-160 flexible video colonoscope was then inserted in the rectum, gradually advanced into the cecum without any difficulty. Careful examination was performed as the scope was gradually being withdrawn. Ileocecal valve and the appendiceal orifice were visualized and appeared normal. Prep was excellent. Mucosa of the cecum, ascending colon, transverse colon, descending colon, sigmoid colon appeared normal. Anastomosis from previous surgery was located 20 cm from the anal verge that appeared normal. In the rectosigmoid colon reveals 3 mm to 6 mm polyp that was removed by cold snare polypectomy., and rectum appeared normal. Retroflexion was performed in the rectum and no lesions were seen. The patient tolerated the procedure well. IMPRESSION: 3 mm and 6 mm rectosigmoid polyp status post cold snare polypectomy Rest of the colon appeared normal Anastomosis from previous surgery located at 2 the 0 cm from anal verge that appeared normal RECOMMENDATIONS: Findings of this examination were discussed with the patient as well as his family.. She was advised to follow-up with the biopsy results. If the biopsy reveals adenoma she can have repeat colonoscopy in 5 years.
[2024-11-10 09:17] VITALS: BP 116/63; PULSE 64; RESP 18
== END 2024-11-10 09:22 | disposition home or self-care (01) ==
LOC: ORWHC2ENDO 07:26
PROVIDERS: ATTEND Internal Medicine Gastroenterology
DX: K63.5 Polyp of colon (principal); K58.2 Mixed irritable bowel syndrome; J45.909 Unspecified asthma, uncomplicated; R56.9 Unspecified convulsions; F41.9 Anxiety disorder, unspecified; F32.A Depression, unspecified; Z91.89 Other specified personal risk factors, not elsewhere classified; Z79.899 Other long term (current) drug therapy; Z87.891 Personal history of nicotine dependence; Z88.6 Allergy status to analgesic agent; Z88.1 Allergy status to other antibiotic agents; Z88.8 Allergy status to other drugs, medicaments and biological substances
CPT/HCPCS: 88305; 45385; J2704

== ENCOUNTER → 2024-11-13 | Outpatient (CLI) | payer BC ==
--- NOTE | 2024-11-13 17:00 | MM ---
Reason for Exam: Screening (asymptomatic). Last screening mammogram was performed 12 month(s) ago. Patient History: Menarche at age 13. First Full-Term at age 20. Left ovary removed at age 45. Right ovary removed at age 45. Hysterectomy at age 45. Postmenopausal. Currently using Unspecified Hormone, starting at age 45. Mother had breast cancer, left, age 48. Risk Values: Denisse 5 year model risk: 1.8%. NCI Lifetime model risk: 16.7%. Prior Study Comparison: 09/22/2022 Bilateral MG 3D screening mammo w/cad, [facility]. 11/12/2023 Bilateral MG 3D screening mammo w/cad, [facility]. Tissue Density: There are scattered areas of fibroglandular density. Findings: Analyzed By CAD. Benign bilateral round calcifications are redemonstrated. There is no suspicious group of microcalcifications or new suspicious mass in either breast. Overall Assessment: Benign, BI-RAD 2 Management: Screening Mammogram of both breasts in 1 year. Patient should continue monthly self-breast exams. A clinical breast exam by your physician is recommended on an annual basis. This exam should not preclude additional follow-up of suspicious palpable abnormalities. Note on Denisse scores and lifetime risk: 1. A Denisse score greater than 3% is considered moderate risk. If this is the case, consider specialist referral to assess eligibility for a risk reducing agent. 2. If overall lifetime risk for the development of breast cancer is 20% or higher, the patient may qualify for future screening with alternating mammogram and breast MRI. [facility], , 11/13/2024 4:57 PM. Electronically signed and approved by: Latonya Willson M.D. Radiologist
== END | disposition home or self-care (01) ==
LOC: RADMAMWWP 09:21
PROVIDERS: ATTEND Family Medicine
DX: Z12.31 Encounter for screening mammogram for malignant neoplasm of breast (principal); R92.323 Mammographic fibroglandular density, bilateral breasts; R92.1 Mammographic calcification found on diagnostic imaging of breast; Z78.0 Asymptomatic menopausal state; Z80.3 Family history of malignant neoplasm of breast
CPT/HCPCS: 77063; 77067